=== PATIENT | female | born 1980 | race Caucasian/White ===

== ENCOUNTER 2023-05-05 15:10 | Emergency (ER) | payer BC, SELFPAY ==
[2023-05-05 15:17] VITALS: BP 131/73; PULSE 78; RESP 18; TEMP 36.7; O2SAT 100; BMI 21.9
--- NOTE | 2023-05-05 15:20 | XR_ITS ---
The [address] [address] Patient Name: ARABELLA MARSHALL MRN: [id number] date: 1980 Sex: F Assigned Patient Location: ER Current Patient Location: ED.MAIN Accession/Order Number: [id number] Exam Date: 05/05/2023 15:28 Report Date: 05/05/2023 15:43 At the request of: NAV FERNANDEZ Procedure: XR hand RT min 3V EXAM: XR hand RT min 3V HISTORY: injury COMPARISON: None. TECHNIQUE: Three views of the right hand. FINDINGS: An acute oblique fracture of the distal metaphysis of the second metacarpal is present with minimal displacement. No dislocation. The bones are well mineralized. No degenerative changes identified. No soft tissue abnormality. XR/XR hand RT min 3V IMPRESSION: 1. Acute fracture of the distal metaphysis of the second metacarpal with minimal displacement. Electronically authenticated by: DAGMAR SALGADO Date: 05/05/2023 15:43
--- NOTE | 2023-05-05 15:20 | PC.NURSE ---
pt presents to ED because patient states she was working on a wood splitter and hit her right hand on the machine. top of hand and knuckles are swollen. ice pack applied.
--- NOTE | 2023-05-05 15:46 | ED_ITS ---
Documented by User: Margret Maza 05/05/23 16:09 HPI - General Adult General Chief complaint: Extremity Injury, Upper Stated complaint: UPPER EXTREMITY INJURY R HAND/XRAY Time Seen by Provider: 05/05/23 15:45 Source: patient Mode of arrival: walk-in Limitations: no limitations History of Present Illness HPI narrative: 43-year-old female presents here with a chief complaint of right hand injury. She was trying to start a wood splitter and smacked her hand and somewhat splinter. Bruising and ecchymosis noted to the 2nd 3rd and 4th metatarsal region. No acute deformity. patient is left hand dominant. occurred just prior to arrival. Patient was given ice on arrival of the er today. Related Data Home Medications Medication Instructions Recorded Confirmed No Known Home Medications 05/05/23 05/05/23 Allergies Allergy/AdvReac Type Severity Reaction Status Date / Time No Known Drug Allergies Allergy Verified 05/05/23 15:16 Review of Systems ROS Narrative All Systems are negative except as noted/marked.All systems reviewed and otherwise negative Exam Narrative Exam Narrative: Nurses note and vital signs reviewed and patient is not hypoxic. General: The patient appears well and in no apparent distress. Patient is resting comfortably on cart. Skin: Warm, dry, no pallor noted. There is no rash noted. Head: Normocephalic, atraumatic Respiratory: Patient is in no distress, no accessory muscle use, lungs are clear to auscultation, no wheezing, rales or rhonchi Back: non-tender, no CVA tenderness bilaterally to percussion. Musculoskeletal: right-handed ecchymosis soft tissue swelling to the 2nd 3rd and 4th metatarsal area, neurovascular intact, good capillary refill distally.remainder of extremities are unremarkable. Neurological: A&O x4, normal speech Psychiatric: Cooperative Constitutional Vital Signs, click to edit/add: Last Vital Signs Temp 98.1 F 05/05/23 15:17 Pulse 78 05/05/23 15:17 Resp 18 05/05/23 15:17 BP 131/73 05/05/23 15:17 Pulse Ox 100 05/05/23 15:17 Course Vital Signs Vital signs: Vital Signs Temperature 98.1 F 05/05/23 15:17 Pulse Rate 78 05/05/23 15:17 Respiratory Rate 18 05/05/23 15:17 Blood Pressure 131/73 05/05/23 15:17 Pulse Oximetry 100 05/05/23 15:17 Temperature 98.1 F 05/05/23 15:17 Pulse Rate 78 05/05/23 15:17 Respiratory Rate 18 05/05/23 15:17 Blood Pressure 131/73 05/05/23 15:17 Pulse Oximetry 100 05/05/23 15:17 Medical Decision Making MDM Narrative Medical decision making narrative: patient presented here chief complaint right hand injury that occurred just prior to arrival. X-rays consistent with a metatarsal fracture. Will follow-up with orthopedics. Patient's right hand was placed in a splint. Extremity neurovascularly intact before and after application. Sling and [place] was provided. Patient will follow-up as directed. Differential Diagnosis Differential Diagnosis: hand contusion, hand fracture, sprain Medical Records Medical records reviewed: Yes I reviewed the patient's medical records Imaging Data right hand: Radiologist's impression: ARABELLA MARSHALL MRN: [facility]:[id number] date: 1980 Sex: F Assigned Patient Location: ER Current Patient Location: ED.MAIN Accession/Order Number: [id number] Exam Date: 05/05/2023 15:28 Report Date: 05/05/2023 15:43 At the request of: NAV FERNANDEZ Procedure: XR hand RT min 3V EXAM: XR hand RT min 3V HISTORY: injury COMPARISON: None. TECHNIQUE: Three views of the right hand. FINDINGS: An acute oblique fracture of the distal metaphysis of the second metacarpal is present with minimal displacement. No dislocation. The bones are well mineralized. No degenerative changes identified. No soft tissue abnormality. IMPRESSION: 1. Acute fracture of the distal metaphysis of the second metacarpal with minimal displacement. Discharge Plan Discharge Chief Complaint: Extremity Injury, Upper Clinical Impression: Fracture of hand Patient Disposition: Home, Self-Care Time of Disposition Decision: 15:58 Condition: Good Prescriptions / Home Meds: No Action No Known Home Medications Stand Alone Forms: Portal Instructions Referrals: TREY NGUYEN [Primary Care Provider] - 1 week Kiran Posadas MD [Physician] - 1 week Discharge Date/Time: 05/05/23 16:14 Documented by User: Nav Fernandez 05/06/23 07:11 HPI - General Adult General Chief complaint: Extremity Injury, Upper Stated complaint: UPPER EXTREMITY INJURY R HAND/XRAY Time Seen by Provider: 05/05/23 15:45 History of Present Illness HPI narrative: 43-year-old female presents here with a chief complaint of right hand injury. She was trying to start a wood splitter and smacked her hand. Bruising and ecchymosis noted to the 2nd 3rd and 4th metatarsal region. No acute deformity. patient is left hand dominant. occurred just prior to arrival. Patient was given ice on arrival of the er today. Related Data Home Medications Medication Instructions Recorded Confirmed No Known Home Medications 05/05/23 05/05/23 Allergies Allergy/AdvReac Type Severity Reaction Status Date / Time No Known Drug Allergies Allergy Verified 05/05/23 15:16 Exam Constitutional Vital Signs, click to edit/add: Last Vital Signs Temp 98.1 F 05/05/23 15:17 Pulse 78 05/05/23 15:17 Resp 18 05/05/23 15:17 BP 131/73 05/05/23 15:17 Pulse Ox 100 05/05/23 15:17 Course Vital Signs Vital signs: Vital Signs Temperature 98.1 F 05/05/23 15:17 Pulse Rate 78 05/05/23 15:17 Respiratory Rate 18 05/05/23 15:17 Blood Pressure 131/73 05/05/23 15:17 Pulse Oximetry 100 05/05/23 15:17 Temperature 98.1 F 05/05/23 15:17 Pulse Rate 78 05/05/23 15:17 Respiratory Rate 18 05/05/23 15:17 Blood Pressure 131/73 05/05/23 15:17 Pulse Oximetry 100 05/05/23 15:17 Discharge Plan Discharge Chief Complaint: Extremity Injury, Upper Clinical Impression: Fracture of hand Patient Disposition: Home, Self-Care Time of Disposition Decision: 15:58 Condition: Good Prescriptions / Home Meds: No Action No Known Home Medications Stand Alone Forms: Portal Instructions Referrals: TREY NGUYEN [Primary Care Provider] - 1 week Kiran Posadas MD [Physician] - 1 week Discharge Date/Time: 05/05/23 16:14
== END 2023-05-05 16:14 | disposition home or self-care (01) ==
PROVIDERS: Emergency Provider Emergency Medicine; PCP Nurse Practitioner Family
DX: S62.390A Other fracture of second metacarpal bone, right hand, initial encounter for closed fracture (principal); W22.8XXA Striking against or struck by other objects, initial encounter
CPT/HCPCS: 29125; 73130; 99283

== ENCOUNTER 2023-05-15 09:36 | Outpatient (OUT) | payer BC, SELFPAY ==
--- NOTE | 2023-05-15 09:53 | XR_ITS ---
The [address] [address] Patient Name: ARABELLA MARSHALL MRN: [id number] date: 1980 Sex: F Assigned Patient Location: RAD Current Patient Location: RAD Accession/Order Number: [id number] Exam Date: 05/15/2023 09:48 Report Date: 05/15/2023 12:34 At the request of: ROBERT MATA Procedure: XR hand RT min 3V PROCEDURE: XR hand RT min 3V DATE: 05/15/2023 8:48 AM CDT COMPARISONS: 05/05/2023 CLINICAL INDICATION: Closed Nondisplaced Fracture Of Fourth Metacarpal Bone FINDINGS: There is again evidence of minimally displaced oblique fracture of the distal third of the second metacarpal. There appears to be callus formation developing at the fracture site. Fracture fragments are difficult to identify in frontal and oblique views in part due to overlying splint material.. No new abnormalities identified. XR/XR hand RT min 3V IMPRESSION: Evidence of healing of an essentially nondisplaced fracture of the distal metaphysis of the second metacarpal. Osseous structures are in stable alignment. Electronically authenticated by: COMFORT HAND Date: 05/15/2023 12:34
== END 2023-05-15 09:37 | disposition home or self-care (01) ==
LOC: RAD 09:36
PROVIDERS: PCP Nurse Practitioner Family; Visit Provider Orthopaedic Surgery
DX: S62.364A Nondisplaced fracture of neck of fourth metacarpal bone, right hand, initial encounter for closed fracture (principal)
CPT/HCPCS: 73130

== ENCOUNTER 2023-05-22 09:56 | Outpatient (OUT) | payer BC, SELFPAY ==
--- NOTE | 2023-05-22 10:00 | XR_ITS ---
The [address] [address] Patient Name: ARABELLA MARSHALL MRN: [id number] date: 1980 Sex: F Assigned Patient Location: RAD Current Patient Location: RAD Accession/Order Number: [id number] Exam Date: 05/22/2023 10:08 Report Date: 05/22/2023 10:28 At the request of: ROBERT MATA Procedure: XR hand RT min 3V PROCEDURE: XR hand RT min 3V COMPARISON: 05/05, 02/12. HISTORY: Closed Fracture Of Metacarpal Bone Right Hand S62.364A FINDINGS: BONES:Stable fracture second metacarpal neck/diaphysis with no change in angulation or distraction. No new fracture or dislocation. SOFT TISSUES:Negative. No visible soft tissue swelling. EFFUSION:None visible. OTHER: Negative. XR/XR hand RT min 3V IMPRESSION: Stable second metacarpal fracture Electronically authenticated by: ELPIDIO MACKEY Date: 05/22/2023 10:28
== END 2023-05-22 09:57 | disposition home or self-care (01) ==
LOC: RAD 09:56
PROVIDERS: PCP Nurse Practitioner Family; Visit Provider Orthopaedic Surgery
DX: S62.364A Nondisplaced fracture of neck of fourth metacarpal bone, right hand, initial encounter for closed fracture (principal); S62.300D Unspecified fracture of second metacarpal bone, right hand, subsequent encounter for fracture with routine healing
CPT/HCPCS: 73130

== ENCOUNTER 2023-05-29 10:01 | Outpatient (OUT) | payer BC, SELFPAY ==
--- NOTE | 2023-05-29 10:06 | XR_ITS ---
The [address] [address] Patient Name: ARABELLA MARSHALL MRN: [id number] date: 1980 Sex: F Assigned Patient Location: [facility] Current Patient Location: Accession/Order Number: [id number] Exam Date: 05/29/2023 10:10 Report Date: 05/30/2023 01:35 At the request of: ROBERT MATA Procedure: XR hand RT min 3V XR hand RT min 3V: HISTORY: Closed Nondisplaced Fracture Neck Of Fourth Metacarpal Right Closed Nondisplaced Fracture Neck Of Fourth Metacarpal Right COMPARISON: 05/22/2023. TECHNIQUE: 3 right hand views are submitted. FINDINGS: BONES/JOINT SPACES: There is stable alignment of healing second distal metacarpal fracture. No acute fractures are present elsewhere. The joint spaces are well-maintained. SOFT TISSUES: The soft tissues are unremarkable. XR/XR hand RT min 3V IMPRESSION: Stable alignment of healing right second distal metacarpal fracture. Electronically authenticated by: NICHOLE MATIAS Date: 05/30/2023 01:35
== END 2023-05-29 10:02 | disposition home or self-care (01) ==
LOC: RAD 10:02
PROVIDERS: PCP Nurse Practitioner Family; Visit Provider Orthopaedic Surgery
DX: S62.364A Nondisplaced fracture of neck of fourth metacarpal bone, right hand, initial encounter for closed fracture (principal); S62.300D Unspecified fracture of second metacarpal bone, right hand, subsequent encounter for fracture with routine healing
CPT/HCPCS: 73130

== ENCOUNTER 2023-06-26 09:17 | Outpatient (OUT) | payer BC, SELFPAY ==
--- NOTE | 2023-06-26 09:27 | XR_ITS ---
The [address] [address] Patient Name: ARABELLA MARSHALL MRN: [id number] date: 1980 Sex: F Assigned Patient Location: [facility] Current Patient Location: Accession/Order Number: [id number] Exam Date: 06/26/2023 09:32 Report Date: 06/27/2023 01:45 At the request of: ROBERT MATA Procedure: XR hand RT min 3V XR hand RT min 3V: HISTORY: Nondisplaced Fracture Of Neck Of Fourth Metacarpal Bone Nondisplaced Fracture Of Neck Of Fourth Metacarpal Bone COMPARISON: 05/29/2023. TECHNIQUE: 3 right hand views are submitted. FINDINGS: BONES/JOINT SPACES: There is stable alignment of a healing fracture of the second distal metacarpal bone. Osseous structures elsewhere are intact. SOFT TISSUES: The soft tissues are unremarkable. XR/XR hand RT min 3V IMPRESSION: Stable alignment of healing distal second metacarpal bone. Electronically authenticated by: NICHOLE MATIAS Date: 06/27/2023 01:45
== END 2023-06-26 09:18 | disposition home or self-care (01) ==
LOC: RAD 09:17
PROVIDERS: PCP Nurse Practitioner Family; Visit Provider Orthopaedic Surgery
DX: S62.364D Nondisplaced fracture of neck of fourth metacarpal bone, right hand, subsequent encounter for fracture with routine healing (principal)
CPT/HCPCS: 73130

== ENCOUNTER 2023-07-24 08:50 | Outpatient (OUT) | payer BC, SELFPAY ==
--- NOTE | 2023-07-24 08:53 | XR_ITS ---
The [address] [address] Patient Name: ARABELLA MARSHALL MRN: [id number] date: 1980 Sex: F Assigned Patient Location: [facility] Current Patient Location: Accession/Order Number: [id number] Exam Date: 07/24/2023 09:00 Report Date: 07/25/2023 07:31 At the request of: ROBERT MATA Procedure: XR hand RT min 3V EXAM: XR hand RT min 3V HISTORY: Nondisplaced Fracture Of Neck Of Fourth Metacarpal Bone COMPARISON: 06/26/2023 TECHNIQUE: Routine views of the XR hand RT min 3V FINDINGS/ XR/XR hand RT min 3V IMPRESSION: 1. No acute fractures. Unchanged lucency of the nondisplaced second metacarpal neck fracture. 2. Unremarkable soft tissues. 3. Normal joint spacing. Electronically authenticated by: SADI YEBOAH Date: 07/25/2023 07:31
== END 2023-07-24 08:51 | disposition home or self-care (01) ==
LOC: RAD 08:50
PROVIDERS: PCP Nurse Practitioner Family; Visit Provider Orthopaedic Surgery
DX: S62.364D Nondisplaced fracture of neck of fourth metacarpal bone, right hand, subsequent encounter for fracture with routine healing (principal)
CPT/HCPCS: 73130

== ENCOUNTER 2023-09-11 08:59 | Outpatient (OUT) | payer BC, SELFPAY ==
--- NOTE | 2023-09-11 | XR_ITS ---
The [address] [address] Patient Name: ARABELLA MARSHALL MRN: [id number] date: 1980 Sex: F Assigned Patient Location: [facility] Current Patient Location: [facility] Accession/Order Number: [id number] Exam Date: 09/11/2023 09:52 Report Date: 09/11/2023 11:30 At the request of: ROBERT MATA Procedure: XR hand RT min 3V EXAM: XR hand RT min 3V HISTORY: RIGHT HAND PAIN COMPARISON: Right hand study dated 07/24/2023. TECHNIQUE: 3 views of the right hand were obtained. FINDINGS: Faint transverse lucency at the level of the distal second metacarpal on the lateral view mildly decreased in conspicuity compared to the prior exam compatible with continued healing of the previously noted fracture. Contour irregularity of the second metacarpal head may be related to the fracture, this appears similar to the prior exam. Mild degenerative changes about the second metatarsophalangeal joint with what may be mild interval degenerative subchondral cystic change at the base of the proximal phalanx of the index finger. Correlate clinically. Mild degenerative changes at the DIP joint of the index finger. Soft tissues are grossly within normal limits. XR/XR hand RT min 3V IMPRESSION: Right hand study demonstrates evidence of continued healing of previously noted distal second metacarpal fracture. Mild contour irregularity of the second metacarpal head assumed related to previously noted fracture. Possible mild interval degenerative cystic change at the base of the proximal phalanx of the index finger. Correlate clinically. Follow-up as needed. Electronically authenticated by: ISIDORO LOPEZ Date: 09/11/2023 11:30
--- OUTSIDE RECORDS SUMMARY | 2023-09-11 09:04 | XMS_ITS | CCD ---
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 Name Role Phone MISC, DR LANDIN Attending Unavailable MISMatilda, DR LANDIN Admitting Unavailable CARLY NGUYEN Admitting Unavailable CARLY NGUYEN Consulting Unavailable CARLY NGUYEN Attending Unavailable DO Migue Woo Primary Care Provider [phone] MD Juan David Jose Attending Provider [phone] MD Je Maradiaga Attending Provider Ever Apple Unavailable Juan David Jose Unavailable Carly Nguyen Unavailable BunDO Migue tyler Primary Care Provider BuntingDO Camarena Attending Provider Bunting, Migue Primary Care Unavailable Bunting, Migue Admitting Unavailable Bunting, Migue Attending Unavailable Bunting, Migue Primary Care Unavailable Juan David Jose Attending Unavailable Juan David Jose Admitting Unavailable Bunting, Migue Admitting Unavailable Bunting, Migue Attending Unavailable Bunting, Migue Primary Care Unavailable Medications Current Medications Medication Drug Class(es) Dates Sig (Normalized) Sig (Original) Acetaminophen (8 sources) Tylenol Active aspirin 325 mg oral tablet (10 sources) Platelet Aggregation Inhibitor, Nonsteroidal Anti-inflammatory Drug Start: 08-30-2021 take 650 mg by mouth once daily Aspirin Active 650 MG PO Daily August 30, 2021 12:57pm Aspirin 325 mg A ctive cephalexin 500 mg oral capsule (2 sources) Cephalosporin Antibacterial Start: 09-14-2021 take 500 mg by mouth three times daily Cephalexin Active 500 MG PO Three times daily September 14, 2021 9:10am lidocaine 0.04 mg/mg medicated patch (8 sources) Antiarrhythmic, Amide Local Anesthetic Start: 03-20-2021 Lidocaine 4 % as directed Externally Mar, Active oxyCODONE hydrochloride 5 mg oral tablet (4 sources) Opioid Agonist Start: 09-14-2021 take 5-10 mg by mouth every six hours Oxycodone Active 5 - 10 MG PO Q6H 40 8 September 14, 2021 oxyCODONE HCl No t-Taking Prednisone (4 sources) Start: 09-14-2021 Prednisone Act lily 1 dose pk PO per package directions September 14, 2021 9:11am take 4 tabs for 3 days then take 3 tabs for 3 days then take 2 tabs for 3 days then take 1 tab for 3 days Start: 09-14-2021 Prednisone Act lily 1 dose pk PO per package directions September 14, 2021 1:00am take 4 tabs for 3 days then take 3 tabs for 3 days then take 2 tabs for 3 days then take 1 tab for 3 days Start: 01-19-2021 take 1 tablet by kellie th every twenty-four hours predniSONE 20 MG 1 tablet Orally Once a day Jan, Not-Taking Completed/Discontinued Medications Medication Drug Class(es) Dates Sig (Normalized) Sig (Original) cyclobenzaprine hydrochloride 10 mg oral tablet (10 sources) Muscle Relaxant Start: 03-20-2021 End: 09-14-2021 take 1 tablet by mouth three times daily Cyclobenzaprine (Flexeril) 10 mg Tablet Discontinued 10 MG PO Three times daily August 30, 2021 1:00am September 14, 2021 9:10am dexamethasone 2 mg oral tablet (2 sources) Corticosteroid take 1 tablet by mouth every twelve hours Dexamethasone 2 MG 1 tablet Orally every 12 hrs Not-Taking zolpidem tartrate 10 mg oral tablet (2 sources) gamma-Aminobutyric Acid-ergic Agonist Start: 01-19-2021 take 1 tablet by mouth every twenty-four hours Ambien 10 MG 1 tablet at bedtime as needed Orally Once a day Jan, Not-Taking Problems Active Problems Problem Classification Problem Date Documented Da te Episodic/Chronic Disorders of lipid metabolism (1 source) Mixed hyperlipidemia; Translations: [Mixed hyperlipidemia] Onset: 05-11-2022 Chronic Other connective tissue disease (2 sources) Tendinitis of left forearm; Translations: [Other enthesopathies, not elsewhere classified] Episodic Other nervous system disorders (8 sources) Chronic pain; Translations: [Other chronic pain] Chronic Other nervous system disorders (1 source) Other chronic pain; Translations: [Chronic pain G89.29] Onset: 05-21-2021 Resolved: 05-21-2021 Chronic Other nervous system disorders (1 source) Carpal tunnel syndrome of right wrist; Translations: [Carpal tunnel syndrome, right upper limb] Chronic Other nervous system disorders (1 source) Carpal tunnel syndrome, right upper limb Chronic Other screening for suspected conditions (not mental disorders or infectious disease) (4 sources) Encounter for screening, unspecified; Translations: [ENCOUNTER FOR SCREENING UNSPECIFIED] Onset: 07-20-2021 Episodic Spondylosis; intervertebral disc disorders; other back problems (20 sources) Cervical spondylosis; Translations: [Spondylosis without myelopathy or radiculopathy, cervical region] Onset: 05-21-2021 Resolved: 05-21-2021 Chronic Spondylosis; intervertebral disc disorders; other back problems (7 sources) Cervical disc disorder with radiculopathy; Translations: [Cervical disc disorder at C6-C7 level with radiculopathy] Onset: 08-05-2021 Resolved: 12-07-2021 09-14-2021 Episodic Unclassified (2 sources) CONTACT W/AND (SUSP) EXPOS COVID-19; Translations: [CONTACT W/AND (SUSP) EXPOS COVID-19] Onset: 07-24-2021 Unclassified (1 source) Encounter for screening mammogram for malignant neoplasm of breast; Translations: [Encounter for screening mammogram for malignant neoplasm of breast] Onset: 03-01-2023 Viral infection (1 source) COVID-19; Translations: [COVID-19] Onset: 07-24-2021 Past or Other Problems Problem Classification Problem Date Documented Da te Episodic/Chronic Immunizations and screening for infectious disease (1 source) Contact with and (suspected) exposure to other viral communicable diseases Onset: 07-20-2021 Resolved: 07-20-2021 Episodic Other connective tissue disease (1 source) Other enthesopathies, not elsewhere classified Onset: 12-07-2021 Resolved: 12-07-2021 Episodic Unclassified (1 source) CONTACT W/AND (SUSP) EXPOS COVID-19; Translations: [CONTACT W/AND (SUSP) EXPOS COVID-19] Onset: 07-20-2021 Results Test Name Value Interpretation Reference Range Facility MM screening mammo BI w/CADo n 03-01-2023 MM screening mammo BI w/CAD [facility] [address] [place] [id number] Mammography Report Signed Patient: Arabella Thornton MR#: [id number] : 1980 Acct:[id number] Age/Sex: 42 / F ADM Date: 03/01/23 Loc: [place] Room: Type: [facility] Attending Dr: Migue Woo DO Copies to: Migue Woo DO Ordering Provider: Migue Woo DO Date of Service: 03/01/23 MM/MM screening mammo BI w/CAD: SCREENING CLINICAL DATA: Screening for malignancy. SCREENING MAMMOGRAM - FULL FIELD DIGITAL WITH TOMOSYNTHESIS AND CAD COMPARISON:Baseline study Tomosynthesis craniocaudal and mediolateral oblique views of both breasts were obtained using low- dose digital technique. This examination was reviewed with the aid of CAD. The breast parenchyma is heterogeneously dense. There are no dominant masses, typically malignant calcifications or architectural distortion. MM/MM screening mammo BI w/CAD IMPRESSION: NO MAMMOGRAPHIC EVIDENCE OF MALIGNANCY. ROUTINE FOLLOW-UP IS RECOMMENDED IN ONE YEAR. RESULT CODE: 1 Negative DENSITY CODE: 3 (approximately 51-75% glandular) FOLLOW UP: 1YR The false-negative rate of mammography is approximately 10-percent. Management of a palpable abnormality must be based on clinical grounds. Patient was entered into a reminder system with a target due date for the next mammogram. Impression dictated by: Raghu Graves Jr., D.O.03/01/2023 3:00 PM Dictation Location: [facility] Transcribed By: [facility] 03/01/23 1500 Dictated By: Raghu Graves Jr, DO 03/01/23 1500 Signed By: 03/01/23 1500 Normal [facility] XR cerv spine AP/LAT/FLX/EXT on 07-06-2022 XR cerv spine AP/LAT/FLX/EXT [address] [address] XRay Report Signed Patient: Arabella Thornton MR#: [id number] : 1980 Acct:[id number] Age/Sex: 42 / F ADM Date: 07/06/22 Loc: XD Room: Type: [facility] Attending Dr: Juan David Jose MD Copies to: Juan David Jose MD Ordering Provider: Juan David Jose MD Date of Service: 07/06/22 XR/XR cerv spine AP/LAT/FLX/EXT: M47.812 CERVICAL SPINE WITH FLEXION AND EXTENSION VIEWS -4 views: CLINICAL HISTORY: Follow-up after artificial disc placement. COMPARISON: 12/06/2021 AP and lateral views with neutral, flexion and extension were obtained. There is redemonstration of an artificial disc at the C6-7 level. This is unchanged from the prior. There are no developing fractures. There is no displacement. With flexion, there is still slight anterolisthesis of C2 on C3, C3 on C4 and C4 on C5. With extension, there is minimal retrolisthesis of C2 on C3 and C3 on C4. There is mild disc space narrowing at C5-6. There are tiny endplate spurs. No prevertebral soft tissue swelling is noted. XR/XR cerv spine AP/LAT/FLX/EXT IMPRESSION: NO CHANGE FROM THE COMPARISON EXAM. Impression dictated by: Adelina Wheeler M.D.07/06/2022 3:49 PM Dictation Location: [place] [address] Transcribed By: [facility] 07/06/22 1549 Dictated By: Adelina Wheeler MD 07/06/22 1547 Signed By: 07/06/22 1549 [facility] Albumin [Mass/volume] in Ser um or PlasmaOrdered By: Migue Woo on 05-11-2022 Albumin [Mass/Vol] 3.9 g/dL 3.2-5.5 [facility] Cholesterol [Mass/volume] in Serum or PlasmaOrdered By: Migue Woo on 05-11-2022 Cholesterol [Mass/Vol] 164 mg/dL 140-200 [facility] Comment on above: Chol less than 200 m g/dl low riskChol 201-239 mg/dl borderline riskChol 240 mg/dl and greater high risk Cholesterol in LDL Calc [Mas s/Vol]Ordered By: Migue Woo on 05-11-2022 Cholesterol in LDL [Mass/Vol] 92 mg/dL 0-100 [facility] Comment on above: LDL ATP III CLASSIFI CATIONLDL less than 100 mg/dL OptimalLDL 100-129 mg/dL Near or above optimalLDL 130-159 mg/dL Borderline highLDL 160-189 mg/dL HighLDL greater than 189 mg/dL Very high Cholesterol in VLDL Calc [Ma ss/Vol]Ordered By: Migue Woo on 05-11-2022 Cholesterol in VLDL [Mass/Vol] 9 mg/dL [facility] Comprehensive Metabolic Pane dora 05-11-2022 Albumin [Mass/Vol] 3.9 g/dL Normal 3.2-5.5 [facility] Comment on above: Performed By: #### C MP, LIPID #### [facility] [address] [place] [address] [place] Albumin/Globulin [Mass ratio] 1.6 {ratio} Normal [facility] Comment on above: Performed By: #### C MP, LIPID #### [facility] [address] [place] [id number] [place] ALP [Catalytic activity/Vol] 68 U/L Normal 32-92 [facility] Comment on above: Performed By: #### C MP, LIPID #### [facility] [address] [place] [address] [place] ALT [Catalytic activity/Vol] 12 U/L Normal 10-60 [facility] Comment on above: Performed By: #### C MP, LIPID #### [facility] [address] [place] [id number] [place] Anion gap [Moles/Vol] 11.5 mmol/L Normal 6.0-15.0 [facility] Comment on above: Performed By: #### C MP, LIPID #### [facility] [address] [place] [id number] [place] AST [Catalytic activity/Vol] 14 U/L Normal 10-42 [facility] Comment on above: Performed By: #### C MP, LIPID #### [facility] [address] [place] [address] [place] Bilirubin [Mass/Vol] 0.5 mg/dL Normal 0.3-1.2 [facility] Comment on above: Performed By: #### C MP, LIPID #### [facility] [address] Calcium [Mass/Vol] 8.6 mg/dL Normal 8.2-10.2 [facility] Comment on above: Performed By: #### C MP, LIPID #### [facility] [address] Chloride [Moles/Vol] 102 mmol/L Normal 95-114 [facility] Comment on above: Performed By: #### C MP, LIPID #### [facility] [address] CO2 [Moles/Vol] 25.3 mmol/L Normal 22.0-30.0 [facility] Comment on above: Performed By: #### C MP, LIPID #### [facility] [address] [place] [address] [place] Creatinine [Mass/Vol] 0.65 mg/dL Normal 0.44-1.03 [facility] Comment on above: Performed By: #### C MP, LIPID #### [facility] [address] [place] [address] [place] Estimated GFR ( Jessica > 60 [facility] Comment on above: Result Comment: GFR estimated reference range: According to KDOQI guidelines, <60 ml/min/1.73m2 is sufficient to diagnose a patient with chronic kidney disease. Performed By: #### C MP, LIPID #### [facility] [address] [place] [address] [place] Estimated GFR (Non- Am > 60 [facility] Comment on above: Performed By: #### C MP, LIPID #### [facility] [address] [place] [address] [place] Globulin (S) [Mass/Vol] 2.5 g/dL [facility] Comment on above: Performed By: #### C MP, LIPID #### [facility] [address] Glucose [Mass/Vol] 95 mg/dL Normal 70-100 [facility] Comment on above: Result Comment: [facility] Glucose Reference Range is dependent on time and content of last meal. Glucose of more than 200 mg/dL in a nonstressed, ambulatory subject supports the diagnosis of Diabetes Mellitus. ADA recommended reference range Performed By: #### C MP, LIPID #### [facility] [address] Potassium [Moles/Vol] 3.8 mmol/L Normal 3.5-5.1 [facility] Comment on above: Performed By: #### C MP, LIPID #### [facility] [address] Protein [Mass/Vol] 6.4 g/dL Normal 6.1-7.9 [facility] Comment on above: Performed By: #### C MP, LIPID #### [facility] [address] Sodium [Moles/Vol] 135 mmol/L Low 136-146 [facility] Comment on above: Performed By: #### C MP, LIPID #### [facility] [address] [place] [address] [place] Urea nitrogen [Mass/Vol] 5 mg/dL Low 9-23 [facility] Comment on above: Performed By: #### C MP, LIPID #### [facility] [address] [place] [address] [place] Creatinine and Glomerular fi ltration rate.predicted panel (S/P/Bld)Ordered By: Migue Woo on 05-11-2022 Creatinine [Mass/Vol] 0.65 mg/dL 0.44-1.03 [facility] Estimated glomerular filtrat ion rate (GFR) non- AmericanOrdered By: Migue Woo on 05-11-2022 GFR/1.73 sq M.predicted among non-blacks MDRD (S/P/Bld) [Vol rate/Area] > 60 mL/Min [facility] Globulin Calc (S) [Mass/Vol] Ordered By: Migue Woo on 05-11-2022 Globulin (S) [Mass/Vol] 2.5 g/dL [facility] Lipid Panelon 05-11-2022 Cholesterol [Mass/Vol] 164 mg/dL Normal 140-200 [facility] Comment on above: Result Comment: Chol less than 200 mg/dl low risk Chol 201-239 mg/dl borderline risk Chol 240 mg/dl and greater high risk Performed By: #### C MP, LIPID #### [facility] [address] Cholesterol in HDL [Mass/Vol] 62 mg/dL Normal 35-85 [facility] Comment on above: Result Comment: HDL CHOL ATP-III CLASSIFICATION Cardiovascular Risk HDL > or equal to 60 mg/dL LOW HDL < 40 mg/dL HIGH Performed By: #### C MP, LIPID #### [facility] [address] Cholesterol.total/Chol esterol in HDL [Mass ratio] 2.6 {ratio} Normal <5.0 [facility] Comment on above: Result Comment: PERF ORMED BY: [place] [address] PATHOLOGIST ENVIRONMENTAL HEALTH SPECIALIST COLLEEN HEARN M.D. Performed By: #### C MP, LIPID #### [facility] [address] LDL Cholesterol,Calculated 92 mg/dL Normal 0-100 [facility] Comment on above: Result Comment: LDL ATP III CLASSIFICATION LDL less than 100 mg/dL Optimal LDL 100-129 mg/dL Near or above optimal LDL 130-159 mg/dL Borderline high LDL 160-189 mg/dL High LDL greater than 189 mg/dL Very high Performed By: #### C MP, LIPID #### [facility] [address] [place] [id number] [place] Triglyceride w/Reflex 49 mg/dL Normal 35-149 [facility] Comment on above: Result Comment: TRIG ATP III CLASSIFICATION TRIG less than 150 mg/dL Normal TRIG 150-199 mg/dL Borderline high TRIG 200-500 mg/dL High TRIG greater than 500 mg/dL Very high Standard traceable to the Center for Disease Conrtrol and Prevention (CDC) test method. Performed By: #### C MP, LIPID #### [facility] [address] [place] [address] [place] VLDL CHOLESTEROL 9 mg/dL Normal [facility] Comment on above: Performed By: #### C MP, LIPID #### [facility] [address] No Panel InformationOrdered By: Migue Woo on 05-11-2022 Estimated GFR () > 60 mL/Min [facility] Comment on above: GFR estimated refere nce range: According to KDOQI guidelines, <60 ml/min/1.73m2 is sufficient to diagnose a patient with chronic kidney disease. Pharmacy Creatinine Clearance (Chem N/A [facility] Protein [Mass/volume] in Ser um or PlasmaOrdered By: Migue Woo on 05-11-2022 Protein [Mass/Vol] 6.4 g/dL 6.1-7.9 [facility] Serum or plasma alanine bolivar otransferase measurement without P-5'-P (enzymatic activiOrdered By: Migue Woo on 05-11-2022 ALT No additional P-5'-P [Catalytic activity/Vol] 12 U/L [facility] Serum or plasma albumin/glob ulin mass ratioOrdered By: Migue Woo on 05-11-2022 Albumin/Globulin [Mass ratio] 1.6 {ratio} [facility] Serum or plasma alkaline nataliia sphatase measurement (enzymatic activity/volume)Ordered By: Migue Woo on 05-11-2022 ALP [Catalytic activity/Vol] 68 U/L 32-92 [facility] Serum or plasma anion gap de terminationOrdered By: Migue Bunting on 05-11-2022 Anion gap [Moles/Vol] 11.5 mmol/L 6.0-15.0 [facility] Serum or plasma aspartate am inotransferase measurement (enzymatic activity/volume)Ordered By: Migue Bunting on 05-11-2022 AST [Catalytic activity/Vol] 14 U/L 1042 [facility] Serum or plasma calcium attila urement (mass/volume)Ordered By: Migue Woo on 05-11-2022 Calcium [Mass/Vol] 8.6 mg/dL 8.2-10.2 [facility] Serum or plasma chloride beba surement (moles/volume)Ordered By: Migue Woo on 05-11-2022 Chloride [Moles/Vol] 102 mmol/L 95-114 [facility] Serum or plasma glucose attila urement (mass/volume)Ordered By: Migue Woo on 05-11-2022 Glucose [Mass/Vol] 95 mg/dL 70-100 [facility] Comment on above: ADA recommended refe rence rangeRandom Glucose Reference Range is dependent on time and content of last meal. Glucose of more than 200 mg/dL in a nonstressed, ambulatory subject supports the diagnosis of Diabetes Mellitus. Serum or plasma high density lipoprotein (HDL) cholesterol measurementOrdered By: Migue Woo on 05-11-2022 Cholesterol in HDL [Mass/Vol] 62 mg/dL 35-85 [facility] Comment on above: HDL CHOL ATP-III CLA SSIFICATION Cardiovascular RiskHDL > or equal to 60 mg/dL LOWHDL < 40 mg/dL HIGH Serum or plasma potassium me asurement (moles/volume)Ordered By: Migue Woo on 05-11-2022 Potassium [Moles/Vol] 3.8 mmol/L 3.5-5.1 [facility] Serum or plasma sodium measu rement (moles/volume)Ordered By: Migue Woo on 05-11-2022 Sodium [Moles/Vol] 135 mmol/L 136-146 [facility] Serum or plasma total biliru bin measurement (mass/volume)Ordered By: Migue Woo on 05-11-2022 Bilirubin [Mass/Vol] 0.5 mg/dL 0.3-1.2 [facility] Serum or plasma total carbon dioxide measurement (moles/volume)Ordered By: Migue Woo on 05-11-2022 CO2 [Moles/Vol] 25.3 mmol/L 22.0-30.0 [facility] Serum or plasma total choles terol/high density lipoprotein (HDL) cholesterol mass ratOrdered By: Migue Woo on 05-11-2022 Cholesterol.total/Chol esterol in HDL [Mass ratio] 2.6 {ratio} <5.0 [facility] Serum or plasma urea nitroge n measurement (mass/volume)Ordered By: Migue Woo on 05-11-2022 Urea nitrogen [Mass/Vol] 5 mg/dL 9-23 [facility] Triglyceride [Mass/volume] i n Serum or PlasmaOrdered By: Migue Woo on 05-11-2022 Triglyceride [Mass/Vol] 49 mg/dL 35-149 [facility] Comment on above: TRIG ATP III CLASSIF ICATIONTRIG less than 150 mg/dL NormalTRIG 150-199 mg/dL Borderline highTRIG 200-500 mg/dL High TRIG greater than 500 mg/dL Very highStandard traceable to the Center for Disease Conrtrol and Prevention (CDC) test method. HCG ( test) IA.rapi d Ql (U)Ordered By: Allan Wills on 09-13-2021 HCG ( test) Ql (U) Negative [facility] COVID Quick Testingon 2020 Result Negative [employer] Other Covid-19 PCR ([facility])on 07-07 SARS-CoV-2 (COVID-19) RNA JUN+probe Ql (Unsp spec) Detected Critically abnormal NOT DETECTED [facility] Comment on above: Result Comment: This test is not yet approved or cleared by the [place] FDA. When there are no FDA-approved or cleared tests available, and other criteria are met, FDA can make tests available under an emergency access mechanism called an Emergency Use Authorization (EUA). The EUA for this test is supported by the Construction Administrative Assistant of Health and Human Service's (HHS's) declaration that circumstances exist to justify the emergency use of in vitro diagnostics for the detection and/or diagnosis of the virus that causes COVID-19. This EUA will remain in effect (meaning this test can be used) for the duration of the COVID-19 declaration justifying emergency of IVDs, unless it is terminated or revoked by FDA (after which the test may no longer be used). Performed By: #### C VDTB #### [facility] [address] [place] [address] Dr. Alejandra Sherman Discharge [id number] Discharge Profile2 Discharge Orders: Anticipated Discharge Date: Anticipated Discharge [id number] Anticipated Discharge Time16:54 Hospital Providers: Provider RoleProvider Name AttendingLuis Laurent Christopher DNAR: DNAR Status: none Activity: activity as tolerated. Diet: Dietregular Provider FINAL REVIEW of Orders: Final Review: Final Review of Medication Reconciliation and Orders Completedby Physician Reviewing ProviderLuis Laurent MD at 20-Mar-2021 16:56:00 Appointments: Follow-Up Appointment 01: Physician/Dept/ServiceDr . Migue Woo PCP Phone [phone] CommentsConcierge service to make appointment Order received after discharge Reached out to patient lvm & sent letter Follow-Up Appointment 02: Physician/Dept/Service Pain management Phone [phone] CommentsConcierge service to make appointment Order received after discharge Reached out to patient lvm & sent letter Electronic Signatures: Alice Horta (PT SVS REP) (Signed 22-Mar-2021 11:54) Authored: Appointments Luis Laurent) (Signed 20-Mar-2021 16:56) Authored: Discharge Orders, Provider FINAL REVIEW of Orders, Appointments, Gold Form - Attic Blower Summary Last Updated: 22-Mar-2021 11:54 by Alice Horta (PT SVS REP) [facility] Order Reconciliationon 03-20 Order Reconciliation Page 1 Discharge Reconciliation Document Reconciliation Type: Discharge requested on behalf of Luis Laurent (Physician) done by Luis Laurent) Discharge - Reconciliation: 20-Mar-2021 17:04 by: Luis Laurent) Current OrdersDateHOME MEDICATIONS AT DISCHARGE DateReconciliation Comment/ Additional Information Acetaminophen Tablet (TYLENOL)DOSE = 975 mg Oral Every 8 Hours, PRN Pain - Mild (1-3) 19-Mar-2021 15:43 Acetaminophen is not required Cyclobenzaprine Tablet (FLEXERIL)DOSE = 10 mg Oral 3 Times a Day 13-Aug-2021 15:43 cyclobenzaprine 10 mg oral tablet 1 tab(s) orally 3 times a day, As Needed for muslce pain 20-Mar-2021 16:57 Prescription is created for cyclobenzaprine 10 mg oral tablet Dexamethasone Injectable (DECADRON)DOSE = 4 mg IntraVenous Push Every 6 Hours 20-Mar-2021 07:35 Dexamethasone Injectable is not required HYDROmorphone Injectable (DILAUDID)DOSE = 0.2 mg IntraVenous Push Every 4 Hours, PRN breakthorugh pain 20-Mar-2021 07:34 HYDROmorphone Injectable is not required Ketorolac Injectable (TORADOL)DOSE = 30 mg IntraVenous Push Every 6 HoursStop After 5 Days 20-Mar-2021 07:34 Ketorolac Injectable is not required Lidocaine 5% TransDermal Film (LIDODERM)DOSE = 1 patch TransDermal Every 24 Hours, Apply to Lower Back 19-Mar-2021 03:25 Lidocaine 5% TransDermal is not required oxyCODONE Immediate Release Tablet (OXYIR, ROXICODONE)DOSE = 5 mg Oral Every 4 Hours, PRN Pain - Severe (7-10) 20-Mar-2021 07:34 oxyCODONE Immediate Release is not required Home Medications Added During Discharge Reconciliation dexamethasone 2 mg oral tablet 3 tab(s) orally 2 times a day for 2 days, then 2 tabs for 2 days, then 1 tab for 2 days, then stop. ibuprofen 800 mg oral tablet 1 tab(s) orally every 8 hours, As Needed for mild to moderate pain lidocaine 5% topical film Apply topically to affected area once a day to back for pain oxyCODONE 5 mg oral tablet 1 tab(s) orally every 4 hours, As needed, severe pain., ICD 10 code M54.9, Back Pain All Active Home Medications at time of Discharge Reconciliation: 20-Mar-2021 17:04 cyclobenzaprine 10 mg oral tablet 1 tab(s) orally 3 times a day, As Needed for muslce pain dexamethasone 2 mg oral tablet 3 tab(s) orally 2 times a day for 2 days, then 2 tabs for 2 days, then 1 tab for 2 days, then stop. ibuprofen 800 mg oral tablet 1 tab(s) orally every 8 hours, As Needed for mild to moderate pain lidocaine 5% topical film Apply topically to affected area once a day to back for pain oxyCODONE 5 mg oral tablet 1 tab(s) orally every 4 hours, As needed, severe pain., ICD 10 code M54.9, Back Pain Normal [facility] Admission Risk Screen - Adul ton 03-19-2021 Admission Risk Screen - Adult Allergies: Allergies: No Known Allergies: Patient Verification: New W ID Band Applied in my Departmentyes Patient Identity Verified Bypatient ID Band FULL Name, include Middle, spelling matches patient's ID used for verificationyes ID Band Matches Patient ID used for Verficationyes ID Band MRN Matches EMR MRNyes Visitor Restriction: Coronavirus Visitor Restriction: Reasonable restrictions to in-person visitors will be observed due to current coronavirus pandemic. Travel History: COVID-19 Screening Completedno exposure or symptoms Travel or Exposure Past 30 DaysNO travel to International locations in the past 30 days Ebola AlertFor Ebola-like Symptoms: Isolate Patient and Notify Provider/Reed Worker For Contact: Notify Provider/Reed Worker Advance Directive: Advance Directive/DNRno (1) Advance Directive Information Givenpatient/family declined Howard Fall Screen: History of falling (immediate or previous)no (0) Secondary Diagnosisno (0) Intravenous Therapy/ Heparin/Saline Lockno (0) Gait/Transferringweak (10) Ambulatory Aidsnone/bedrest/nurse assist (0) Mental Statusoriented to own ability (0) Score: Low risk (<25). Moderate risk (25-44). High risk (>44).10 Howard InterventionsHIGH INTERVENTIONS *Low and Moderate Interventions Plus: * supervised toileting at all times Family Violence Screen: Are you or have you been threatened or abused physically, emotionally, or sexually by anyoneno Do you feel UNSAFE going back to the place where you are livingno Clinical assessment: Are there any apparent signs of injuries/behaviors that could be related to abuse/neglectno Social Service Consult for abuse/neglect needed this visitno Functional Screen: Functional Screen: In the recent/past 2-4 weeks, patient or family have noticedno issues that require a speech/language consult at this time AM-PAC- Basic Mobility/Daily Activity: Patient baseline bedboundno Learning Assessment (Patient): Patient is Able to be Assessed for Learningyes Factors Influencing Readiness to Learnacuteness of illness Factors that Impact Ability to Learnnone Devices/Methods Used to Communicatenone Learning Preferencesverbal instruction; individual instruction Cultural Considerationsnone Developmental Considerationsnone Church Considerationsnone Learning Assessment (Other Learner): Other learner availableno Depression Screen: During the past month, have you often been bothered by feeling down, depressed or hopelessno During the past month, have you often had little interest or pleasure in doing thingsno Have you had any thoughts of harming anyone elseno (2) [place] Suicide: Risk Screen Not Applicable/Able to Answerable to be screened In the Past Month: Have you wished you were or could go to sleep and not wake upno(2) In the Past Month: Have you had any actual thoughts of killing yourself no(2) Lifetime: Have you ever done, started to do, or prepared to do anything to end your lifeno [place] Suicide Risknegative Adult Nutrition Screen: Have you recently lost weight without tryingno Have you been eating poorly because of a decreased appetiteno Malnutrition Screening Tool Score0 Malnutrition Screening Tool RiskMST = 0 or 1 Not at risk. Eating well with little or no weight loss Nutrition Consult needed this visitno Can Patient Participate in Room Serviceyes Patient requires Paper Dishes/Plastic Utensilsno Pain Screen: Pain Scalenumerical 0-10 Pain Scale Educationteaching provided Current Pain Level8 = Severe Acceptable Pain Level0 = None Expression of Pain (nonverbal)verbalization Chronic Painyes Chronic Pain Commentchronic back pain Spiritual Screen: Are there any cultural, spiritual, taoism practices/values/needs that are important for us to knowno CAGE: Is this an injured patient at a Trauma Center ([facility] [place]/[place] /[place]): yes (1) C: Have you ever felt you needed to Cut down on your drinking: no (1) A: Have people Annoyed you by criticizing your drinking: no (1) G: Have you ever felt Guilty about drinking: no (1) E: Have you ever felt you needed a drink first thing in the 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 Immunocompetent persons with underlying chronic conditions or reside in ceramic designer care facilitiesnone of these conditions Persons with Functional or Anatomic Asplenianone of these conditions Immunocompromised Personsnone of these conditions Pneumonia vaccine NOT indicated due to:patient DOES NOT have a condition that indicates vaccination patient/caregiver refusal at this time Kervin (more content not included)... Normal [facility] BASIC METABOLIC PANELon 08 Anion gap [Moles/Vol] 19 mmol/L Normal 10 - 20 [facility] Comment on above: Performed By: #### B MP ####[id number] [place] [address] Calcium [Mass/Vol] 10.0 mg/dL Normal 8.6 - 10.6 [facility] Comment on above: Performed By: #### B MP ####[id number] [place] [address] Chloride [Moles/Vol] 99 mmol/L Normal 98 - 107 [facility] Comment on above: Performed By: #### B MP ####[id number] [place] [address] Creatinine [Mass/Vol] 0.71 mg/dL Normal 0.50 - 1.05 [facility] Comment on above: Performed By: #### B MP ####[id number] [place] [address] GFR- AM. >60 Normal >60 [facility] Comment on above: Result Comment: CALC ULATIONS OF ESTIMATED GFR ARE PERFORMED USING THE MDRD STUDY EQUATION FOR THE IDMS-TRACEABLE CREATININE METHODS. CLIN CHEM 2007;53:766-72 Performed By: #### B MP ####[id number] [place] [address] GFR-NON AM. >60 Normal >60 [facility] Comment on above: Performed By: #### B MP ####[id number] [place] [address] Glucose [Mass/Vol] 85 mg/dL Normal 74 - 99 [facility] Comment on above: Performed By: #### B MP ####[id number] [place] [address] HCO3 (Bld) [Moles/Vol] 23 mmol/L Normal 21 - 32 [facility] Comment on above: Performed By: #### B MP ####[id number] [place] [address] Potassium [Moles/Vol] 3.3 mmol/L Low 3.5 - 5.3 [facility] Comment on above: Performed By: #### B MP ####[id number] [place] [address] Sodium [Moles/Vol] 138 mmol/L Normal 136 - 145 [facility] Comment on above: Performed By: #### B MP ####[id number] [place] [address] Urea nitrogen [Mass/Vol] 7 mg/dL Normal 6 - 23 [facility] Comment on above: Performed By: #### B MP ####[id number] [place] [address] CBC AND DIFFERENTIALon 03-19 % AUTOMATED IMMATURE GRAN 0.2 % Normal 0.0 - 0.9 [facility] Comment on above: Result Comment: Leslie ture Granulocyte Count (IG) includes promyelocytes, myelocytes and metamyelocytes but does not include bands. Percent differential counts (%) should be interpreted in the context of the absolute cell counts (cells/L). Performed By: #### C BCDF ####[id number] [place] [address] Basophils (Bld) [#/Vol] 0.03 10*3/uL Normal 0.00 - 0.10 [facility] Comment on above: Performed By: #### C BCDF ####[id number] [place] [address] Basophils/100 WBC (Bld) 0.6 % Normal 0.0 - 2.0 [facility] Comment on above: Performed By: #### C BCDF ####[id number] [place] [address] Eosinophils (Bld) [#/Vol] 0.06 10*3/uL Normal 0.00 - 0.70 [facility] Comment on above: Performed By: #### C BCDF ####[id number] [place] [address] Eosinophils/100 WBC (Bld) 1.3 % Normal 0.0 - 6.0 [facility] Comment on above: Performed By: #### C BCDF ####[id number] [place] [address] Erythrocyte distribution width (RBC) [Ratio] 12.7 % Normal 11.5 - 14.5 [facility] Comment on above: Performed By: #### C BCDF ####[id number] [place] [address] Hematocrit (Bld) [Volume fraction] 37.0 % Normal 36.0 - 46.0 [facility] Comment on above: Performed By: #### C BCDF ####[id number] [place] [address] Hemoglobin (Bld) [Mass/Vol] 12.6 g/dL Normal 12.0 - 16.0 [facility] Comment on above: Performed By: #### C BCDF ####[id number] [place] [address] Lymphocytes (Bld) [#/Vol] 1.16 10*3/uL Low 1.20 - 4.80 [facility] Comment on above: Performed By: #### C BCDF ####[id number] [place] [address] Lymphocytes/100 WBC (Bld) 24.8 % Normal 13.0 - 44.0 [facility] Comment on above: Performed By: #### C BCDF ####[id number] [place] [address] MCHC (RBC) [Mass/Vol] 34.1 g/dL Normal 32.0 - 36.0 [facility] Comment on above: Performed By: #### C BCDF ####[id number] [place] [address] MCV (RBC) [Entitic vol] 100 fL Normal 80 - 100 [facility] Comment on above: Performed By: #### C BCDF ####[id number] [place] [address] Monocytes (Bld) [#/Vol] 0.46 10*3/uL Normal 0.10 - 1.00 [facility] Comment on above: Performed By: #### C BCDF ####[id number] [place] [address] Monocytes/100 WBC (Bld) 9.8 % Normal 2.0 - 10.0 [facility] Comment on above: Performed By: #### C BCDF ####[id number] [place] [address] Neutrophils (Bld) [#/Vol] 2.96 10*3/uL Normal 1.20 - 7.70 [facility] Comment on above: Performed By: #### C BCDF ####[id number] [place] [address] Neutrophils/100 WBC (Bld) 63.3 % Normal 40.0 - 80.0 [facility] Comment on above: Performed By: #### C BCDF ####[id number] [place] [address] NUCLEATED RBC 0.0 /100 WBC Normal 0.0-0.0 [facility] Comment on above: Performed By: #### C BCDF ####[id number] [place] [address] Platelets (Bld) [#/Vol] 333 10*3/uL Normal 150 - 450 [facility] Comment on above: Performed By: #### C BCDF ####[id number] [place] [address] RBC 3.69 x10E12/L Low 4.00 - 5.20 [facility] Comment on above: Performed By: #### C BCDF ####[id number] [place] [address] WBC (Bld) [#/Vol] 4.7 10*3/uL Normal 4.4 - 11.3 [facility] Comment on above: Performed By: #### C BCDF ####[id number] [facility] [address] CORONAVIRUS 2019, SCREEN ASY MPTOMATICon 03-19-2021 SARS-CoV-2 (COVID-19) RNA JUN+probe Ql (Unsp spec) Not detected Normal Not Detected [facility] Comment on above: Result Comment: . This test has received FDA Emergency Use Authorization (EUA) and has been verified by [facility] ([facility]). This test is only authorized for the duration of time that circumstances exist to justify the authorization of the emergency use of in vitro diagnostic tests for the detection of SARS-CoV-2 virus and/or diagnosis of COVID-19 infection under section 564(b)(1) of the Act, 21 U.S.C. 360bbb-3(b)(1), unless the authorization is terminated or revoked sooner. [facility] is certified under CLIA-88 as qualified to perform high complexity testing. Testing is performed in the [facility] located at [address] [place] [address]. SARS-CoV-2/Flu/RSV Multiplex Test: Fact sheet for providers: https://www.fda.gov/media/545331/download Fact sheet for patients: https://www.fda.gov/media/190332/download Performed By: #### C OVSC #### [address] [place] [address] Lab Specimen Source Nasal, Nasopharyngeal Normal [facility] Comment on above: Performed By: #### C OVSC #### [address] [place] [address] Consult-Orthopaedicson 03-19 Consult-Orthopaedics Service: Service: Orthopaedics History of Present Illness: HPI: History of Present Illness: ARABELLA THORNTON is a 41 year old Female who presented with neck pain, lower back pain, and numbness/tingling in b/ lower extremities + LUE. Ortho was consulted for these complaints. Patient states that she was gardening yesterday when her symptoms in her BLE acutely worsened. 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 She denies having any saddle anesthesia or bowel/bladder incontinence. Orthopaedic Problems/Injuries: -Moderate spinal canal stenosis at the level of C5-6 -Mild bilateral neural foraminal stenosis at L5-S1 due to paraforaminal disc herniation Other Injuries: None Past medical history: Per chart Past surgical history: Per chart Allergies: NKDA Medications: Per chart Social History: Denies smoking, denies drinking, denies IVDU Family History: Non-contributory to this patient's acute surgical issue. Review of Systems: Gen: Denies recent weight loss Neuro: Denies recent confusion Ophtho: Denies changes in vision ENT: Denies changes in hearing Endo: Denies weight loss/weight gain CV: Denies chest pain Resp: Denies shortness of breath GI: Denies melena/hematochezia : Denies painful urination MSK: Per above HPI Heme: No abnormal bleeding Psych: Denies hallucinations Review Family/Social History and ROS: Social History: Smoking Status: never smoker (1) Drug Use: denies (1) Allergies: No Known Allergies: Objective: Physical Exam by System: Constitutional: Resting comfortably in no acute distress Respiratory/Thorax: Breathing comfortably on room air, symmetrical chest rise and fall. Cardiovascular: RRR to palpation Extremities: Spine: C5: SILT Deltoid 5/5 Left; 5/5 Right C6: SILT Wrist Ext: 5/5 Left; 5/5 Right C7: SILT Triceps: 5/5 Left; 5/5 Right C8: SILT Finger flexion: 5/5 Left; 5/5 Right T1: SILT Interossei: 5/5 Left; 5/5 Right Bicep Reflex 2+ Bilaterally BR Reflex 2+ Bilaterally Triceps Reflex 2+ Bilaterally L1: SILT L2: SILT Hip flexors 5/5 Left; 5/5 Right L3: SILT Knee extension 5/5 Left; 5/5 Right L4: SILT Tib Ant. (Dorsiflexion) 5/5 Left; 5/5 Right L5: SILT EHL5/5 Left; 5/5 Right S1: SILT Planter flexion 5/5 Left; 5/5 Right Patellar reflex: 2+ Bilaterally Achilles reflex: 2+ Bilaterally Perianal sensation intact Appropriate rectal tone Negative Pizano bilaterally Negative Babinski bilaterally Assessment: ARABELLA THORNTON is a 41 year old Female who presented with BLE and LUE radicular-type subjective symptoms without objective findings on physical exam. MRI revealed moderate spinal canal stenosis at C5-6 and mild foraminal stenosis at L5-S1. Recommendations: - no acute orthopaedic surgical intervention indicated at this time - WBAT BLE - pain control per ED - Dispo per ED - Recommend following with PM&R - No need to f/u with ortho spine Jasmeet Benites MD PGY-1, Orthopaedic Surgery Pager: [phone] Bran Maddox MD Orthopaedic Surgery, PGY-3 Please page [phone] M-F between 6p and 7a and on weekends Patient will be followed by ortho spine while in house. Please contact respective team for any questions/concerns Ortho Spine team: Sav Rodriguez, PGY-2 - [id number] Axel Wong, PGY-3 - Miguel A Cornell, PGY-4 - [id number] Attestation: Note Completion: I am a: Resident/Fellow Attending AttestationI saw and evaluated the patient. I personally obtained the schafer and critical portions of the history and physical exam or was physically present for schafer and critical portions performed by the resident/fellow. I reviewed the resident/fellows documentation and discussed the patient with the resident/fellow. I agree with the resident/fellows medical decision making as documented in their note with the exception/addition of the following: I personally evaluated the patient [id number] Comments/ Additional Findings As noted She does have cervical spondylosis most notable at C6-7 No significant spinal cord compression and no myelopathic features Agree with non-surgical management Electronic Signatures: Gómez Stewart) (Signed 22-Mar-2021 10:03) Authored: Note Completion Co-Signer: Assessment/Recommendatio ns, Note Completion Bran Maddox ( (Resident)) (Signed 19-Mar-2021 20:49) Authored: Assessment/Recommendatio ns, Note Completion Jasmeet Benites ( (Resident)) (Signed 19-Mar-2021 15:34) Authored: Service, History of Present Illness, Review Family/Social History and ROS, Allergies, Objective, Assessment/Recommendatio ns Last Updated: 22-Mar-2021 10:03 by Gómez Stewart) References: 1. Data Referenced From Risk Screen - Adult Emergency 19-Mar-2021 07:32 Normal [facility] Covid 19 Resultson 1 SARS-CoV-2 (COVID-19) RNA JUN+probe Ql (Unsp spec) NEGATIVE COVID-19 Test Coronaviruses are common world-wide and are the cause of many common colds. SARS-COV2 is a new coronavirus that began circulating worldwide in 2019 so we are calling it COVID-19. It has been estimated that four out of five patients with COVID-19 will recover at home without the need for medical attention. Symptoms of COVID-19 may include cough, fever, shortness of breath, loss of taste or smell and other flu-like symptoms including chills, sore muscles, sore throat, and headache. Severe illness is more common in older people and people with other health problems such as high blood pressure, obesity, and immune system problems. If the test is positive, you have COVID-19. You will be contacted by the ordering physicians office and instructed to remain on home isolation, in accordance with CDC guidelines. You may also be contacted by the [facility] to see if any of your close contacts may have been exposed to the virus and need to quarantine. If the test is negative, you likely do not have COVID-19 at this time, but you still may have a different illness that can spread to other people (like Influenza, or the Flu) and could still be at risk for getting COVID-19. We recommend that you stay away from other people to limit the spread of illness until your symptoms are improving and you are fever-free for 24 hours without the use of fever lowering medications such as acetaminophen or ibuprofen. No test is 100% accurate so if you are still concerned you may have COVID-19, talk to your doctor about the need to continue to stay away from others. Medicines Unless your provider told you not to use the following: Acetaminophen (Tylenol and others) is generally safe. Anti-inflammatory medications, such as Ibuprofen (Advil or Motrin) or Naproxen (Aleve) can also be used. Hewg-eyw-qwwspbw cough and cold medicines can be used according to the instructions on the package. Some fndm-qhf-gahpoor medicines also contain acetaminophen. Make sure you are not taking more than your recommended dose. For those not hospitalized, there is no specific treatment available for this illness. Antibiotics do not treat Coronaviruses. Follow-Up Follow up with your doctor by scheduling a virtual visit or consider follow-up at one of our urgent care fever clinics. If you are having difficulty breathing, or are very weak and having difficulty standing, this is a medical emergency. Call 911 or have someone take you to the nearest emergency room immediately. If possible, wear a facemask. Additional guidance from the CDC for patients who tested POSITIVE for COVID-19 How to isolate: Isolate yourself in a specific room at home and limit your contact with others. Use a separate bathroom from other members of the household, when possible. Leave home only to get essential medical care. Do not go to work, school or public areas. Avoid using public transportation, ride-sharing, or taxis. Restrict contact with pets and other animals. If you must care for your pet or be around animals while you are sick, wash your hands before and after your interaction and wear a facemask. Make sure that shared spaces in the home have good airflow, such as by an air conditioner or an opened window, weather permitting. Personal Hygiene Procedures: Wear a face mask when in the same room as other people or pets. If a face mask interferes with your breathing, others should wear a mask when sharing space with you. Frequent hand-washing: wash your hands with soap and water for at least 20 seconds. If soap and water are not available, use alcohol-based hand project associate. Avoid touching your eyes, nose, and mouth with unwashed hands. Household Hygiene Procedures: Avoid sharing personal household items such as dishes, glassware, cups, eating utensils, towels or bedding with other people or pets in your home. After use, these items should be washed with soap and hot water. Disinfect all high-touch surfaces every day with antibacterial cleaning solutions such as Lysol wipes, bleach, cleansers, etc. High-touch surfaces include tabletops, doorknobs, bathroom fixtures, toilets, phones, keyboards, tablets and bedside tables. Immediately clean any surfaces that may have blood, poop or body fluids on them, using antibacterial cleaning solutions such as Lysol wipes, bleach, cleansers, etc. If clothing or bedding come into contact with blood, poop or body fluids, they should be washed immediately. Follow the directions on the laundry detergent and clothing labels but hot water is recommended when possible. Stopping home isolation precautions: If possible, consult your doctor before stopping home isolation precautions. According to the CDC, you can discontinue home isolation precautions when you have met both of these criteria: Your fever and respiratory symptoms have been gone for 24 merritt (more content not included)... Normal [facility] NR MRI CERVICAL WOon 021 NR MRI CERVICAL WO Patient Name: ARABELLA THORNTON STUDY: MRI CERVICAL WO; 03/19/2021 1:00 pm INDICATION: Partially visualized degenerative changes on T spine MRI. COMPARISON: Thoracic spine MRI, same day ACCESSION NUMBER(S): [id number] ORDERING CLINICIAN: DAYDAY BETTS TECHNIQUE: Sagittal T1, T2, STIR, axial T1 and axial T2 weighted images were acquired through the cervical spine. FINDINGS: There is straightening of the normal cervical lordosis, which may be related to patient positioning or muscle spasm. The alignment is preserved. Vertebral bodies demonstrate expected height. Multilevel degenerative endplate changes without associated marrow edema. Multilevel loss of normal disc T2 signal and disc height. There is mild flattening of the ventral cord at C5-6 and C6-7, no abnormal cord signal. C1-C2: The cervicomedullary junction appears unremarkable. No spinal canal stenosis. C2-C3: No posterior disc contour abnormality. No significant spinal canal or neural foraminal stenosis. C3-C4: No posterior disc contour abnormality. No significant spinal canal or neural foraminal stenosis. C4-C5: Disc osteophyte complex with mild spinal canal narrowing. C5-C6: Disc osteophyte complex and facet and uncovertebral hypertrophy with moderate spinal canal narrowing and mild bilateral neural foramen narrowing. C6-C7: Asymmetric disc osteophyte complex and facet and uncovertebral hypertrophy with moderate spinal canal narrowing as well as mild right and moderate left neural foramen narrowing. C7-T1: No posterior disc contour abnormality. No significant spinal canal or neural foraminal stenosis. The prevertebral and posterior paraspinous soft tissues are within normal limits. IMPRESSION: Multilevel degenerative changes most pronounced at C5-6 and C6-7, no abnormal cord signal. Electronically signed by: ZAC CHIN MD, PHD [facility] NR MRI L-SPINE WOon 03-19-20 21 NR MRI L-SPINE WO Patient Name: ARABELLA THORNTON STUDY: MRI T-SPINE WO; MRI L-SPINE WO; 03/19/2021 7:28 am; 03/19/2021 7:31 am INDICATION: A 41-year-old female with weak right HF, weak bilateral DF,. COMPARISON: None. ACCESSION NUMBER(S): [id number]; [id number] ORDERING CLINICIAN: ROBERT HARP TECHNIQUE: Sagittal T1, T2, STIR and axial T2 and T1 weighted MR images of the thoracic and lumbar spine were obtained. FINDINGS: There is moderate spinal canal stenosis at the level of C5-C6 and C6-C7, with effacement of the ventral subarachnoid space and mild indentation of the spinal cord, incompletely characterized on current examination. THORACIC SPINE: Limited coronal images demonstrate mild dextrocurvature of the upper thoracic spine. There is variant thoracic anatomy, with 11 thoracic type, rib-bearing vertebral bodies. Otherwise, the thoracic vertebral alignment is within normal limits. Vertebral body heights are preserved. T2/stir hyperintense lesions in the T8 and T10 vertebral bodies likely represent hemangiomas. T2/T1 hyperintense structure in the T4 vertebral body may represent focal fatty rest or an atypical hemangioma. There is no evidence of marrow or endplate edema. Intervertebral discs are within normal limits. Although the exam is mildly degraded by motion, within limits of the study, the thoracic spinal cord is unremarkable in signal and morphology. Ligamentum flavum hypertrophy at the level of T10-T11 on the left effaces the dorsal thecal sac without significant spinal canal stenosis. Otherwise causes no significant spinal or neural foraminal stenosis in the thoracic spine. There is a 1.5 cm T2 hyperintense cystic structure in the right hepatic lobe. Paraspinal musculature is unremarkable in appearance. LUMBAR SPINE: There are 5 lumbar type, non rib-bearing vertebral bodies, with loss intervertebral disc space labeled L5-S1. There is 3-4 mm retrolisthesis of L4 on L5. Vertebral body heights are preserved. Vertebral marrow is within normal limits, without evidence of marrow edema. There is intervertebral disc desiccation with mild disc height loss at L5-S1. Conus medullaris terminates at the level of L1-L2, and is unremarkable in appearance. T11-L1: No significant spinal canal or neural foraminal stenosis. L1-L2: No significant spinal canal or neural foraminal stenosis. L2-L3: No significant spinal canal or neural foraminal stenosis. L3-L4: No significant spinal canal or neural foraminal stenosis. L4-L5: Mild circumferential disc bulge encroaches on the bilateral neural foramina without significant spinal canal or neural foraminal stenosis. L5-S1: No significant spinal canal stenosis, with mild bilateral neural foraminal narrowing due to para foraminal disc bulge/osteophytic spurring. The paraspinal soft tissues are unremarkable in appearance. IMPRESSION: 1. Variant thoracic anatomy, with 11 thoracic type rib-bearing vertebral bodies. No significant spinal canal or neural foraminal stenosis in the thoracic spine. 2. No significant spinal canal with mild bilateral neural foraminal stenosis at L5-S1 due to paraforaminal disc bulge and osteophytic spurring. 3. Limited electric relay tester imaging of the cervical spine demonstrates moderate spinal canal stenosis at the level of C5-C6 and C6-C7, with effacement of the ventral thecal sac and indentation on the spinal cord, incompletely characterized on current exam. Dedicated MRI of the cervical spine could be considered for further characterization as clinically necessary. I personally reviewed the images/study and Dr. Magana's interpretation and I agree with the findings as stated. Electronically signed by: JASMEET ENRIQUEZ MD [facility] NR MRI T-SPINE WOon 03-19-20 NR MRI T-SPINE WO Patient Name: ARABELLA THORNTON STUDY: MRI T-SPINE WO; MRI L-SPINE WO; 03/19/2021 7:28 am; 03/19/2021 7:31 am INDICATION: A 41-year-old female with weak right HF, weak bilateral DF,. COMPARISON: None. ACCESSION NUMBER(S): [id number]; [id number] ORDERING CLINICIAN: ROBERT HARP TECHNIQUE: Sagittal T1, T2, STIR and axial T2 and T1 weighted MR images of the thoracic and lumbar spine were obtained. FINDINGS: There is moderate spinal canal stenosis at the level of C5-C6 and C6-C7, with effacement of the ventral subarachnoid space and mild indentation of the spinal cord, incompletely characterized on current examination. THORACIC SPINE: Limited coronal images demonstrate mild dextrocurvature of the upper thoracic spine. There is variant thoracic anatomy, with 11 thoracic type, rib-bearing vertebral bodies. Otherwise, the thoracic vertebral alignment is within normal limits. Vertebral body heights are preserved. T2/stir hyperintense lesions in the T8 and T10 vertebral bodies likely represent hemangiomas. T2/T1 hyperintense structure in the T4 vertebral body may represent focal fatty rest or an atypical hemangioma. There is no evidence of marrow or endplate edema. Intervertebral discs are within normal limits. Although the exam is mildly degraded by motion, within limits of the study, the thoracic spinal cord is unremarkable in signal and morphology. Ligamentum flavum hypertrophy at the level of T10-T11 on the left effaces the dorsal thecal sac without significant spinal canal stenosis. Otherwise causes no significant spinal or neural foraminal stenosis in the thoracic spine. There is a 1.5 cm T2 hyperintense cystic structure in the right hepatic lobe. Paraspinal musculature is unremarkable in appearance. LUMBAR SPINE: There are 5 lumbar type, non rib-bearing vertebral bodies, with loss intervertebral disc space labeled L5-S1. There is 3-4 mm retrolisthesis of L4 on L5. Vertebral body heights are preserved. Vertebral marrow is within normal limits, without evidence of marrow edema. There is intervertebral disc desiccation with mild disc height loss at L5-S1. Conus medullaris terminates at the level of L1-L2, and is unremarkable in appearance. T11-L1: No significant spinal canal or neural foraminal stenosis. L1-L2: No significant spinal canal or neural foraminal stenosis. L2-L3: No significant spinal canal or neural foraminal stenosis. L3-L4: No significant spinal canal or neural foraminal stenosis. L4-L5: Mild circumferential disc bulge encroaches on the bilateral neural foramina without significant spinal canal or neural foraminal stenosis. L5-S1: No significant spinal canal stenosis, with mild bilateral neural foraminal narrowing due to para foraminal disc bulge/osteophytic spurring. The paraspinal soft tissues are unremarkable in appearance. IMPRESSION: 1. Variant thoracic anatomy, with 11 thoracic type rib-bearing vertebral bodies. No significant spinal canal or neural foraminal stenosis in the thoracic spine. 2. No significant spinal canal with mild bilateral neural foraminal stenosis at L5-S1 due to paraforaminal disc bulge and osteophytic spurring. 3. Limited electric relay tester imaging of the cervical spine demonstrates moderate spinal canal stenosis at the level of C5-C6 and C6-C7, with effacement of the ventral thecal sac and indentation on the spinal cord, incompletely characterized on current exam. Dedicated MRI of the cervical spine could be considered for further characterization as clinically necessary. I personally reviewed the images/study and Dr. Magana's interpretation and I agree with the findings as stated. Electronically signed by: JASMEET ENRIQUEZ MD [facility] Order Reconciliationon 03-19 Order Reconciliation Page 1 Admission Reconciliation Document Reconciliation Type: Admission requested on behalf of Jasmeet Devries (Advanced Practice Nurse) done by Jasmeet Devries (DIRECTOR SYSTEMS-GAS APPLIANCE MECHANIC) Admission - Reconciliation: 19-Mar-2021 15:35 by: Jasmeet Devries (DIRECTOR SYSTEMS-GAS APPLIANCE MECHANIC) Home MedicationsEnteredLast Dose TakenReconciled with current Order Reconciliation Comment/ Additional Information amoxicillin-clavulanate 500 mg-125 mg oral tablet 500 milligram(s) orally 2 times a day 19-Mar-2021 NoLongerTaking Diflucan 150 mg oral tablet 1 tab(s) orally once a day 19-Mar-2021 NoLongerTaking docusate sodium 100 mg oral capsule 1 cap(s) orally 2 times a day, As Needed, Stool Softening 19-Mar-2021 NoLongerTaking ibuprofen 800 mg oral tablet 1 tab(s) orally every 6 hours, As Needed, Pain - Mild (1-3) cramping or back pain 19-Mar-2021 NoLongerTaking Multivitamins oral tablet 1 tab(s) orally once a day 19-Mar-2021 NoLongerTaking Additional Current Orders Lidocaine 5% TransDermal Film (LIDODERM)DOSE = 1 patch TransDermal Every 24 Hours, Apply to Lower Back [facility] Patient Profile - Adult v2on 03-19-2021 Patient Profile - Adult v2 Profile: Initial Info: How to be Addressedkatie Spoken Language PreferredEnglish Stated Reason for Admissionacute exacerbation of pts back pain Wants Family/Rep Notified of Admissionn/a; family present Notify PCPnotify PCP Informed of Patient Visiting Rightsyes [facility] Employment Statusemployed Patient Belongingsremains with patient Patient Belongings Remaining with Patientclothing; vision aids Medications Brought to Hospitalno General Health: Weight in kg66 kilogram(s)(1) Weight in bbx188.5 pound(s) Weight Methodactual (measured) Scale Typestanding Height in cm165.1 centimeter(s) Height in feet5 feet(1) Height in inches5 inch(es)(1) Height Methodestimated BMI (kg/m2)24.213 square meter RSP Based Care: How would you like to participate in your care I don tknow What is the number one concern for you during this hospitalization to get better What is the most important thing we can do to support you during this hospitalization to help me get better Is there anything we need to know to best care for you no Substance: Smoking Statusnever smoker (2) Drug Usedenies (2) Health Mgmt: Symptoms/Conditions Managed at [facility] Are You no (3) Are You Currently Breastfeedingno (3) Relationship/Environ: Resource/Environmental Concernsnone Primary Source of Support/Comfortspouse Lives Withdependent child(ivonne); spouse Living Arrangementshouse Services Anticipated at Transitionnone Anticipated Transition Tohome Significant IndicatorsComplete Information Review: Allergies, Home Meds and Significant Events have been Reviewed and Verified with Patient/Familyyes ALLERGY, INTOLERANCE, ADVERSE EVENT: Allergies: No Known Allergies: Active Electronic Signatures: Genesis Miles (KIARA) (Signed 19-Mar-2021 19:03) Authored: Initial Info, General Health, RSP Based Care, Substance, Health Mgmt, Relationship/Environ, Additional Information Last Updated: 19-Mar-2021 19:03 by Genesis Mlies (KIARA) References: 1. Data Referenced From 1. Vital Signs 19-Mar-2021 16:43 2. Data Referenced From Consult-Orthopaedics 19-Mar-2021 10:35 3. Data Referenced From History and Physical 19-Mar-2021 15:43 [facility] Provider Note - ED Care Coleman sitionon 03-19-2021 Provider Note - ED Care Transition ED Care Transition: Chart Review: RESULTS/VITAL SIGNS RESULTS: Recent Lab Results: I have reviewed these laboratory results: Coronavirus 2019, Screen Asymptomatic 19-Mar-2021 09:46:00 ResultValue Fluid Source Nasal, Nasopharyngeal Coronavirus 2019,PCR NOT DETECTED Reference Range: Not Detected . This test has received FDA Emergency Use Authorization (EUA) and has been verified by [facility] ([facility]). This test is only authorized for the duration of time koby Complete Blood Count + Differential 19-Mar-2021 09:45:00 ResultValue White Blood Cell Count 4.7 Nucleated Erythrocyte Count 0.0 Red Blood Cell Count 3.69 L HGB 12.6 HCT 37.0 MCV 100 MCHC 34.1 PLT 333 RDW-CV 12.7 Neutrophil % 63.3 Immature Granulocytes % 0.2 Lymphocyte % 24.8 Monocyte % 9.8 Eosinophil % 1.3 Basophil % 0.6 Neutrophil Count 2.96 Lymphocyte Count 1.16 L Monocyte Count 0.46 Eosinophil Count 0.06 Basophil Count 0.03 Basic Metabolic Panel 19-Mar-2021 09:45:00 ResultValue Glucose, Serum 85 NA 138 K 3.3 L CL 99 Bicarbonate, Serum 23 Anion Gap, Serum 19 BUN 7 CREAT 0.71 GFR-Non >60 GFR- >60 Calcium, Serum 10.0 Radiology Results: Impression: Multilevel degenerative changes most pronounced at C5-6 and C6-7, no abnormalcord signal. MRI Cervical without Contrast [Mar 19 2021 1:35PM] Impression: 1. Variant thoracic anatomy, with 11 thoracic type rib-bearing vertebral bodies. No significant spinal canal or neural foraminal stenosis in the thoracic spine. 2. No significant spinal canal with mild bilateral neural foraminal stenosis at L5-S1 due to paraforaminal disc bulge and osteophytic spurring. 3. Limited electric relay tester imaging of the cervical spine demonstrates moderate spinal canal stenosis at the level of C5-C6 and C6-C7, with effacement of the ventral thecal sac and indentation on the spinal cord, incompletely characterized on current exam. Dedicated MRI of the cervical spine could be considered for further characterization as clinically necessary. MRI T Spine without Contrast [Mar 19 2021 8:08AM] Impression: 1. Variant thoracic anatomy, with 11 thoracic type rib-bearing vertebral bodies. No significant spinal canal or neural foraminal stenosis in the thoracic spine. 2. No significant spinal canal with mild bilateral neural foraminal stenosis at L5-S1 due to paraforaminal disc bulge and osteophytic spurring. 3. Limited electric relay tester imaging of the cervical spine demonstrates moderate spinal canal stenosis at the level of C5-C6 and C6-C7, with effacement of the ventral thecal sac and indentation on the spinal cord, incompletely characterized on current exam. Dedicated MRI of the cervical spine could be considered for further characterization as clinically necessary. MRI L Spine without Contrast [Mar 19 2021 8:08AM] VITAL SIGNS: T PRBP SpO2O2(LPM) %FiO2 Method 19-Mar-2021 11:00:[id number] 19-Mar-2021 10:19:[id number]/87 98 19-Mar-2021 10:00:00-70811/87 19-Mar-2021 09:00:[id number]/84 94 19-Mar-2021 08:14:[id number]/102 96 19-Mar-2021 08:00:[id number]/102 99 19-Mar-2021 05:38:[id number]/82 99 19-Mar-2021 02:32:[id number]/98 100 room air, no respiratory support MEDICAL DECISION MAKING/ED COURSE MDM/ED COURSE: Handoff received: 03/19/2021 0700 Handoff care received from Dr. Harp at this time. Please refer to his note for initial plan of care of this patient. Patient signed out to me pending work-up results and reevaluation. I agree with my prior providers assessment and plan of care. MRIs showed mild bilateral neural foraminal stenosis at L5-S1 due due to para for my normal disc bulge and osteophytic spurring, limited electric relay tester imaging of the cervical spine demonstrates moderate spinal canal stenosis at the level of C5-C6 and C6-C7 with effacement of the ventral thecal sac and indention on the spinal cord and recommended dedicated MRI of the cervical spine which I ordered and showed multilevel degenerative changes most pronounced at C5-6 and C6-7 with no abnormal cord signal. See results review. Orthopedics was consulted as they were on for spine due to the MRI results and the patient's symptoms. They performed her evaluation and stated there was no acute surgical intervention to be performed at this time, see their consult note for further details. She was noted to have a full bladder on her MRI and was able to void without difficulty. Despite multiple doses of pain management while in the emergency department, she was unable to ambulate without extreme help. Therefore she was not safe to be discharged home due to risk of falling. She is agreeable for admission for pain management, physical therapy. Laboratory studies and Covid swabs were sent for admission which were unremarkable. She remained hemodynamically stable. Previous (more content not included)... [facility] Provider Note - ED v3on 03-07 Provider Note - ED v3 Provider Note: Chart Review: ED NOTES ED NOTES: HPI: Patient is a 41-year-old female with no significant medical history presents for back pain. Patient states she has a history of L3/L4 left-sided herniation and has intermittent flareups. Patient was working her garden earlier today and felt mild back pain, was not severe until patient arrived at work and was unable to ambulate due to lower extremity weakness. Patient endorses low back and bilateral lower extremity paresthesias. Denies any saddle anesthesia, urinary retention, bowel control problems. Denies any fevers, chills. ROS: A complete review of systems was performed and is otherwise negative except as noted in HPI PMH/PSH: Per HPI FH: Noncontributory SH: Denies any tobacco, alcohol or drugs Allergies: Per EMR Medications: Per EMR PE: Vital signs reviewed in nursing triage note, EMR flow sheets, and at patient's bedside. GEN: Moderately uncomfortable appearing, no acute distress HEAD: atraumatic EYES: PEERL, EOMI, no scleral icterus ENT: no rhinorrhea NECK: supple CVS/CHEST: reg rate, nl rhythm PULM: CTA b/l no wheezes, crackles, or rhonchi BACK: no CVA tenderness, no vertebral point tenderness, diffuse low back pain, numbness to lower back EXT: no LE edema, right hip flexor 4 out of 5, bilateral dorsiflexion 4 out of 5, remainder of lower extremity strength 5 out of 5 NEURO: CN 2-12 grossly intact, lower extremity sensation to light touch decreased SKIN: warm, dry, no rashes or ulcerations PSYCH: Alert and oriented, answers questions appropriately ED Course/Treatment/MDM: Results: *See section(s) entitled ``Lab Results, ``Diagnostic Imaging Results Review for entirety. Notable results listed below - Labs/Images: MRI pending Treatment/Management/The rapy: Valium, morphine, Dilaudid, Zofran, Ativan MDM Patient is a 41-year-old female with no significant medical history presents for back pain. Differential includes cord compression, low back muscle strain. Patient has objective weakness on her exam as well as decreased sensation lower extremities and low back, concerning for possible cord compression. MRI of T and L-spine are ordered and are pending. Patient requires premedication due to severe claustrophobia. Patient was given Valium prior to transfer to MRI. Patient continued to have claustrophobia and was given Ativan in addition to this. If patient's MRI is negative, her symptoms are likely due to low back strain with possible herniation of disks. Patient was handed off in stable condition pending completion of MRI and results as well as final disposition. Clinical Impression: *See section entitled ``Diagnoses/Visit Problems Dispo Handoff Patient discussed with Dr. Navarro. Disclaimer: This note was dictated using speech recognition software. Minor errors in hollow handle knife assembler may be present. Please call if questions. Robert Harp MD Emergency Medicine PGY3 [employer] HISTORY OF PRESENTING ILLNESS ARABELLA is a 41 year old Female and was seen by me at 19-Mar-2021 03:16 for a chief complaint of back pain . Other complaints include: Patient c/o back pain after gardening prior to work. Now having difficulty with walking. Patient has a past history of a herniated disc. (1). Triage Information: Most recent Vital Sign Value Date Temp (F): 97.1 03-19-2021 02:32 Temp (C): 36.2 03-19-2021 02:32 Heart Rate (beats/min): 86 03-19-2021 02:32 Respirations (breaths/min): 17 03-19-2021 02:32 SpO2 (%): 100 03-19-2021 02:32 BP Systolic (mm Hg): 158 03-19-2021 02:32 BP Diastolic (mm Hg): 98 03-19-2021 02:32 PAST MEDICAL HISTORY ALLERGIES/INTOLERANCES: No Known Allergies HEALTH HISTORY: No documented data. OUTPATIENT MEDICATIONS: Home Medications Review Status for Reconciliation: Not Done Med Status: No Current Medications Drug Name: cyclobenzaprine 10 mg oral tablet Instructions: 1 tab(s) orally 3 times a day, As Needed for muslce pain Drug Name: lidocaine 5% topical film Instructions: Apply topically to affected area once a day to back for pain Drug Name: oxyCODONE 5 mg oral tablet Instructions: 1 tab(s) orally every 4 hours, As needed, severe pain. ICD 10 code M54.9 Back Pain Drug Name: dexamethasone 2 mg oral tablet Instructions: 3 tab(s) orally 2 times a day for 2 days, then 2 tabs for 2 days, then 1 tab for 2 days, then stop. Drug Name: ibuprofen 800 mg oral tablet Instructions: 1 tab(s) orally every 8 hours, As Needed for mild to moderate pain SIGNIFICANT EVENTS: Past Medical History Description:denies DISPOSITION Diagnosis/Annotation: ED Dx Name:Back pain Code:M54.9 Name:Impaired ambulation Code:R26.2 Disposition: HANDOFF CONSULT Attestation: I saw and evaluated the patient. I personally obtained the schafer and critical portions of the history and physical exam or was physically pr (more content not included)... [facility] Risk Screen - Adult Emergenc yon 03-19-2021 Risk Screen - Adult Emergency Preferred Language: Preferred Language: Preferred Language for Discussing Health Care (patient/designee)Kary pryor Advanced Directives: Advance Directive/DNRno Family Violence Adult: Abuse Screen: Are you or have you been threatened or abused physically, emotionally, or sexually by anyoneno Learning Assessment (Patient): Learning Assessment (Patient): Patient is Able to be Assessed for Learningyes Factors Influencing Readiness to Learnacuteness of illness; anxiety Factors that Impact Ability to Learnnone Devices/Methods Used to Communicatenone Learning Preferencesverbal instruction Cultural Considerationsnone Developmental Considerationsnone Church Considerationsnone Learning Assessment (Other Learner): Learning Assessment (Other Learner): Other learner availableno Pressure Injury/TB/Substance: Pressure Injury: Pressure Injury Present on Admissionno Do you have a coughno Smoking Statusnever smoker Drug Usedenies Admission Risk Screen: Significant IndicatorsComplete CAGE: CAGE: Is this an injured patient at a Trauma Center ([facility] [place]/[place] /[place]): yes C: Have you ever felt you needed to Cut down on your drinking: no A: Have people Annoyed you by criticizing your drinking: no G: Have you ever felt Guilty about drinking: no E: Have you ever felt you needed a drink first thing in the morning (Eye-analytical manager) to steady your nerves or to get rid of hangover: no Electronic Signatures: Katherine Hager) (Signed 19-Mar-2021 07:33) Authored: Preferred Language, Advanced Directives, Family Violence Adult, Learning Assessment (Patient), Learning Assessment (Other Learner), Pressure Injury/TB/Substance, Pressure Injury, CAGE Last Updated: 19-Mar-2021 07:33 by Katherine Hager (CATHY) [facility] Triage - EDon 03-19-2021 Triage - ED Quick Triage: Are You no Have You Given In The Last 6 Weeksno Are You Currently Breastfeedingno Chart Review: ARRIVAL INFORMATION Mode of Arrival: private vehicle CHIEF COMPLAINT ARABELLA THORNTON is a Female patient with a chief complaint of back pain. Other Complaints: Patient c/o back pain after gardening prior to work. Now having difficulty with walking. Patient has a past history of a herniated disc. Triage Date/Time: 19-Mar-2021 02:32 HUBERT: 3V Vital Signs: Temperature: 97.1F ( 36.2C) taken temporal Blood Pressure: 158/98 Mean: Heart Rate: 86 Respiratory Rate: 17 Pulse Oximetry: 100% on room air, no respiratory support. Height: 5 feet 4 inches. 162.5 CM Weight: 141.9 pounds. Calculated 64.4 kg. (stated) Calculated BMI (kg/m2): 24.388 Calculated BSA (m2) 1.70 Nomi Coma Scale: Best Eye Response: (E4) spontaneous Best Motor Response: (M6) obeys commands Best Verbal Response: (V5) oriented Nomi Score: 15 Allergies: no Patient has homicidal thoughts: no Symptom Notes: . Symptoms Are POSITIVE For: difficulty bending and difficulty walking. Symptoms Are Negative For: bruising, flank pain, headache, hematuria, muscle cramps, neck pain, numbness and tingling. Risk Screens Suicide Risk Screen In the Past Month: Have you wished you were or wished you could go to sleep and not wake up no In the Past Month: Have you had any actual thoughts of killing yourself no In Your Lifetime: Have you ever done anything, started to do anything, or prepared to do anything to end your life no Howard Fall Scale Screening Has the patient fallen before (or is the patient in the ED as a result of a fall) has not had a fall Does the patient have an impaired gait does not have impaired gait Is the patient cognitively impaired not cognitively impaired Interventions: Howard Fall Interventions: LOW INTERVENTIONS: *patient oriented to surroundings and call system, * patient/family falls education completed and documented, *patients fall status communicated during bedside handoff, *whiteboard updated, *mode of toileting discussed with patient, *bed in low position with brakes locked, *call light in reach, * non-skid footwear TRAVEL HISTORY Travel History Coronavirus Screening: no exposure or symptoms Travel Exposure History: NO travel to International locations in the past 30 days PAIN Pain Scale Used: SHARONDA Past Medical History: Past Medical History Reviewedyes denies: Past Medical History, Active Electronic Signatures: Kianna Terry (RN) (Signed 19-Mar-2021 02:34) Entered: Risk Screens, Pain, Travel History, Chart Review, Scores, Past Medical History Authored: Quick Triage, Risk Screens, Pain, Travel History, Chart Review, Scores, Past Medical History Last Updated: 19-Mar-2021 02:34 by Kianna Terry (RN) [facility] Provider [place] 01-14-2021 Provider Orders [id number] TIFF [facility] Coding Summaryon 09-17-2020 Coding Summary CODING DATE: [facility] STATUS: Home PAYOR: Quinton Brennan APC DESCRIPTION 5522 Level 2 Imaging without Contrast ADMIT DX: REASON FOR VISIT DX: M54.5 Low back pain M54.16 Radiculopathy, lumbar region FINAL DX: PRINCIPAL: M54.5 Low back pain SECONDARY: M54.16 Radiculopathy, lumbar region PYMT PROC APC STAT DESCRIPTION DOCTOR NAME DATE NOTE: The code number assigned matches the documented diagnosis and / or procedure in the patient's chart. However, the narrative phrase printed from the coding software may appear abbreviated, or result in slightly different terminology. Coded By: Allie Clemons Date Saved: 09/17/2020 03:59 pm [facility] Provider [place] 09-17-2020 Provider Orders [id number] TIFF [facility] XR Spine Lumbosacral Minimum 4 Viewson 09-16-2020 XR Spine Lumbosacral Minimum 4 Views EXAM: XR Spine Lumbosacral Minimum 4 Views HISTORY: M54.5 LOW BACK PAIN , M54.16 RADICULOPATHY, LUMBAR REGION. COMPARISON: None. TECHNIQUE: 5 views of the lumbar spine were obtained to include AP, lateral, both oblique, and directed lateral lumbosacral views. FINDINGS: Vertebral body heights are grossly well-maintained. No significant disc space narrowing is seen. Mild degenerative facet changes suggested bilaterally at L4-L5 as well as L5-S1 on the right. No obvious spondylolysis or spondylolisthesis. No definite acute fracture or dislocation. There is slight convexity of the lumbar spine to the left. IMPRESSION: Lumbar spine study demonstrates mild degenerative changes as described. Slight convexity to the left. Follow up as needed. Final Dictated by: Kenyon Hooper MD Dictated DT/TM: 09/16/20 2:18 Signed (Electronic Signature): Kenyon Hooper MD 09/16/20 3:36 pm Technologist: LISSETTE LOVETT [facility] Vital Signs Date Time Vital Sign Value Performing Clinician Facility 07-08-2022 11:20-0500 Body height 163.19 cm Juan David Jose Other [employer] Other 07-08-2022 11:20-0500 Body mass index (BMI) [Ratio] 21.29 kg/m2 Juan David Jose Other [employer] Other 07-08-2022 11:20-0500 Body weight 56.7 kg Juan David Jose Other [employer] Other 12-07-2021 11:20-0400 Body height 163.19 cm Juan David Jose Other [employer] Other 12-07-2021 11:20-0400 Body mass index (BMI) [Ratio] 23.84 kg/m2 Juan David Jose Other [employer] Other 12-07-2021 11:20-0400 Body weight 63.5 kg Juan David Jose Other [employer] Other 10-12-2021 12:00-0500 Body height 163.19 cm Juan David Jose Other [employer] Other 10-12-2021 12:00-0500 Body mass index (BMI) [Ratio] 23.84 kg/m2 Juan David Jose Other [employer] Other 10-12-2021 12:00-0500 Body weight 63.5 kg Juan David Jose Other [employer] Other 09-14-2021 08:00-0500 Body temperature 98.7 [degF] DO Migue Bunting Work Phone: [facility] 09-14-2021 08:00-0500 Diastolic blood pressure 75 mm[Hg] DO Migue Bunting Work Phone: [facility] 09-14-2021 08:00-0500 Heart rate 64 /min DO Migue Bunting Work Phone: [facility] 09-14-2021 08:00-0500 SaO2% (BldA) [Mass fraction] 100 % DO Migue Bunting Work Phone: [facility] 09-14-2021 08:00-0500 Systolic blood pressure 185 mm[Hg] DO Migue Bunting Work Phone: [facility] 09-14-2021 04:00-0500 Respiratory rate 18 /min DO Migue Bunting Work Phone: [facility] 09-13-2021 14:17-0500 Inhaled oxygen flow rate 8 L/min DO Migue Bunting Work Phone: [facility] 09-13-2021 11:11-0500 Body height 163.19 cm DO Migue Bunting Work Phone: [facility] 09-13-2021 11:11-0500 Body mass index (BMI) [Ratio] 24.4 kg/m2 DO Migue Bunting Work Phone: [facility] 09-13-2021 11:11-0500 Body weight 65 kg DO Migue Bunting Work Phone: [facility] 08-05-2021 15:40-0500 Body height 163.19 cm Juan David Jose Other [employer] Other 08-05-2021 15:40-0500 Body mass index (BMI) [Ratio] 23.84 kg/m2 Juan David Jose Other [employer] Other 08-05-2021 15:40-0500 Body weight 63.5 kg Juan David Jose Other [employer] Other 07-20-2021 13:15-0500 Body height 163.19 cm Carly Nguyen Other [employer] Other 07-20-2021 13:15-0500 Body mass index (BMI) [Ratio] 23.84 kg/m2 Carly Nguyen Other [employer] Other 07-20-2021 13:15-0500 Body temperature 98.6 [degF] Carly Nguyen Other [employer] Other 07-20-2021 13:15-0500 Body weight 63.5 kg Carly Yamileth Other [employer] Other 07-20-2021 13:15-0500 Respiratory rate 18 /min Carly Nguyen Other [employer] Other 07-20-2021 13:15-0500 SaO2% (BldA) [Mass fraction] 98 % Carly Nguyen Other [employer] Other 05-21-2021 11:00-0400 Body height 163.19 cm Ever [employer] Other [employer] Other 05-21-2021 11:00-0400 Body mass index (BMI) [Ratio] 25.89 kg/m2 [employer] Other [employer] Other 05-21-2021 11:00-0400 Body weight 68.95 kg [employer] Other [employer] Other 05-21-2021 11:00-0400 Diastolic blood pressure 80 mm[Hg] [employer] Other [employer] Other 05-21-2021 11:00-0400 Systolic blood pressure 110 mm[Hg] [employer] Other [employer] Other Encounters Encounter Date Encounter Type Care Provider Facility Start: 03-01-2023 End: 03-01-2023 ambulatory Migue Bunting Facility:[facility] Start: 07-08-2022 End: 07-08-2022 ambulatory Juan David Jose Other [facility] [employer] Other Start: 07-08-2022 Office outpatient vi sit 15 minutes Juan David Jose [facility] Start: 07-06-2022 End: 07-06-2022 ambulatory Migue Bunting Facility:[facility] Start: 05-11-2022 End: 05-11-2022 ambulatory Migue Bunting Facility:[facility] Start: 05-11-2022 End: 05-11-2022 ambulatory DO Migue Bunting Work Phone: [facility] Work Phone: Start: 05-11-2022 End: 05-11-2022 Patient encounter procedure DO Migue Bunting Work Phone: [facility] [place] Start: 12-07-2021 End: 12-07-2021 ambulatory Juan David Jose Other [employer] Other Start: 12-07-2021 Follow-up encounter Juan David Jose [facility] Start: 12-06-2021 End: 12-06-2021 Patient encounter procedure DO Migue Bunting Work Phone: [facility] Start: 10-12-2021 End: 10-12-2021 ambulatory Juan David Jose Other [employer] Other Start: 10-12-2021 Postop follow up vis it related to original px Juan David Jose [facility] Start: 10-11-2021 End: 10-11-2021 Patient encounter procedure DO Migue Bunting Work Phone: [facility] Start: 09-13-2021 End: 09-14-2021 Admission to same day surgery center Juan David Jose Other [facility] Start: 09-13-2021 End: 09-13-2021 ambulatory Juan David Jose Other [employer] Other Start: 08-05-2021 End: 08-05-2021 ambulatory Juan David Jose Other [employer] Other Start: 08-05-2021 Office outpatient vi sit 40 minutes Juan David Jose [facility] Start: 07-20-2021 End: 07-20-2021 ambulatory CARLY NGUYEN Facility:[facility] Start: 07-20-2021 Office outpatient vi sit 15 minutes Carly Nguyen [facility] Start: 05-27-2021 (Procedure) Billie Apple [facility] Start: 05-21-2021 Office consultation new/estab patient 60 min Ever [facility] Procedures Date Procedure Procedure Detail Performing Clinician Start: 12-06-2021 X-ray of cervical spine DO Migue Bunting Work Phone: Start: 10-11-2021 X-ray of cervical spine DO Migue Bunting Work Phone: Start: 09-13-2021 OR Cervical Fusion Anterior (Not Applicable) DO Migue Bunting Work Phone: Start: 09-13-2021 X-ray of cervical spine DO Migue Bunting Work Phone: Plan of Treatment Date Care Activity Detail Author Patient referral [facility] Work Phone: Payers Date Payer Category Payer Self-pay [id number] 1980 Unknown [id number] [id number] 1980 Unknown [id number] [id number] [id number] 1961 Unknown [id number] 1961 Unknown [id number] Unknown [id number] Unknown [id number] 2.16.8 [id number] Unknown [id number] 2.16.8 [id number] Unknown [id number] 2.16.8 [id number] Social History Date Type Detail Facility Start: 09-13-2021 Tobacco smoking status NHIS Ex-smoker (finding) [facility] Start: 1980 Sex Assigned At Female F [facility] Sex Assigned At Sex Assigned At Bir th [employer] Other Medical Equipment Procedure Code Equipment Code Equipment Original Text Equipment Identifier Dates Cervical total intervertebral disc prosthesis, modular [id number] Start: 09-13-2021 Goals Date Patient Goal Desired Activity /State Functional Status Date Assessment Result Facility 09-14-2021 Functional status Patient is Pro gressing Toward Baseline [facility] Work Phone: Mental Status Date Assessment Result Facility 09-14-2021 Cognitive function [facility] Patient is Progressing Toward Baseline [facility] Work Phone: Clinical Notes 03-19-2021 to 07-08-2022 Note Date & Type Note Facility 07-08-2022 Evaluation note Encounter Date Diagnosis Assessment Notes Jul, Cervical disc disorder at C6-C7 level with radiculopathy (ICD-10 - M50.123) I independently reviewed the plain x-ray of the cervical spine and compared to previous showing a well-placed artificial disc LDR with movement on flexion and extension. Jul, Carpal tunnel syndrome on right (ICD-10 - G56.01) The patient complains of numbness in her right hand involving the thumb index middle and part of the ring finger that tends to radiate up her arm and make her whole arm numb. It happens at night tending to wake her up multiple times and during the day when driving a car or holding the steering wheel. Clinical exam revealed that she had right carpal tunnel syndrome. I will send her for an EMG of the right upper extremity and urged her to get a splint. I will see her again in August for follow-up. [employer] Other 05-03-2022 Evaluation note* Encounter Date Diagnosis Assessment Notes Treatment Notes Treatment Clinical Notes December, Cervical disc disorder at C6-C7 level with radiculopathy (ICD-10 - M50.123) At this point the patient I think has an extensor tendinitis in the left forearm I will send her to orthopedics for treatment. I doubt this is a new radiculopathy. If the symptoms persist or something changes she knows she can come back and see me. The artificial disc has been again reevaluated with flexion-extension views which shows good location good placement and good motion. December, Tendinitis of left forearm (ICD-10 - M77.8) [employer] Other 03-08-2022 Evaluation note* Encounter Date Diagnosis Assessment Notes Treatment Notes Treatment Clinical Notes Oct, Cervical disc disorder at C6-C7 level with radiculopathy (ICD-10 - M50.123) At 30 days postop the patient has complete relief of arm pain voice is good swallowing good she is happy with her result. I have independently reviewed the plain x-ray showing good placement of the artificial disc. I shared this with the patient. I will see her again in 2 months with an x-ray. [employer] Other 12-30-2021 Evaluation note* Encounter Date Diagnosis Assessment Notes Treatment Notes Treatment Clinical Notes Jul, Cervical disc disorder at C6-C7 level with radiculopathy (ICD-10 - M50.123) This patient had at least 10 sessions of physical therapy with no improvement of pain or weakness of her left side. She has a cervical disc herniation C6-7 on the left with significant foraminal narrowing and slight cord impingement. I am recommending an anterior cervical discectomy with placement of an M6 artificial disc. I discussed with the patient the indication operation postop course alternatives and complications to include paralysis nerve damage incomplete relief of symptoms and infection. Also swallowing difficulties and hoarseness. Patient fully understands and would like to proceed with surgical intervention. She has significant left C7 pain and weakness. [employer] Other 12-14-2021 Evaluation note* Encounter Date Diagnosis Assessment Notes Treatment Notes Treatment Clinical Notes Jul, Contact with and (suspected) exposure to other viral communicable diseases (ICD-10 - Z20.828) Even though COVID RAPID test is NEGATIVE, I am highly suspicious at this time you may be positive due to the symptoms. Recommend patient follow Quarantine guidelines until you follow up with PCP.. Recommend OTC medication such as Mucinex, Sea salt nasal spray, Cepecol, Tylenol, Zyrtec, as they can help with symptoms VIRAL URI HANDOUT GIVEN TO PATIENT THAT RECOMMENDS OTC MEDICATIONS, FOLLOW UP AND WHEN TO SEEK EMERGENCY TREATMENT Jul, Other Additional time spent conducting pre-visit phone call, screening for symptoms, instructions on social distancing, application and removal of PPE, and cleaning of examination room, equipment and supplies was preformed. Patient education given for testing methodology and results. Patient care instructions given in writting by [facility] At Home document. [employer] Other 10-15-2021 Evaluation note* Encounter Date Diagnosis Assessment Notes Treatment Notes Treatment Clinical Notes May, Lumbar degenerative disc disease (ICD-10 - M51.36) 41 year old female presents with complaints of neck pain with numbness/tingling to the left upper extremity to the had. She also voices complaints of low back pain with numbness/tingling to the bilateral lower extremities to the ankles, more on the left. She states pain has been present for over 12 years but has significantly increased in the last year, with no known inciting trauma. She describes pain as a constant dull ache. She denies pain management or physical therapy, but notes rn medicare as well as massage therapy. Prior to examinng the patient, I reviewed progress notes from her referring provider, Dr woo. I also independently reviewed recent imaging of the lumbar spine and I agree with radiology interpretation. History, physical examination and available images are consistent with Lumbar DDD, Sacroiliitis and Lumbosacral Spondylosis. Anatomy of spine discussed in detail with patient in regards to patients condition. Patient is a candidate for a L5-S1 epidural steroid injection under fluoroscopic guidance. Risks and benefits of procedure explained to patient; patient verbalizes understanding. May, DDD (degenerative disc disease), cervical (ICD-10 - M50.30) In regards to her complaints of neck pain, I independently reviewed recent imaging of the cervical spine and I agree with radiology interpretation. If her pain persists we can consider proceeding with a cervical epidural steroid injection under fluoroscopic guidance in the future May, Lumbosacral spondylosis (ICD-10 - M47.817) If her pain persists or worsens, we can consider proceeding with a lumbar facet medial branch nerve block followed by a RFA if applicable in the future May, Sacroiliitis (ICD-10 - M46.1) In the future if the pain persists, we can consider proceeding with a sacroiliac joint injection under fluoroscopic guidance May, Cervical spondylosis (ICD-10 - M47.812) If her neck pain persists, we can consider proceeding with a cervical facet medial branch nerve block, followed by a RFA if applicable. May, Chronic pain (ICD-10 - G89.29) Continue medicaitons as prescribed May, Other Medical deci jr making shows a new problem to me with further workup planned or suggested with the potential for extensive treatment options that were considered with the most applicable given this patient's situation as noted above. Treatment options considered include a combination of physical therapy approaches, pharmacologic management, and interventional procedures. Those most applicable to the patient were discussed at this time. Risk of complications and/or morbidity and mortality is high given that acute and chronic pain poses a threat to life and bodily function if undertreated, poorly treated or with failure to maintain adequate treatment and timely followup. Given the serious and fluctuating nature of pain with extensive consideration for whenever pain changes, there always remains the possibility of prolonged functional impairment requiring constant patient reassessment and high-level medical decision making. The amount and complexity of data reviewed is high given that patient labs, radiology reports, and other test were obtained, reviewed and summarized as applicable from the physician portal and/or outside medical records. Pertinent positive and negative findings were considered in medical decision-making. [employer] Other 08-14-2021 NoteSend Summary: Discharge Summary Providers: Provider RoleProvider Name AttendingLuis Laurent Christopher Note Recipients: Migue Woo MD - [id number] [] Discharge: Summary: Admission Date: .19-Mar-2021 02:27:00 Discharge Date: 20-Mar-2021 Attending Physician at Discharge: Luis Laurent Admission Reason: Back pain(1) Final Discharge Diagnoses: 1. Acute on chronic back pain Procedures: none Condition at Discharge: Fair Disposition at Discharge: .Home Vital Signs: T PRBPSpO2 [id number]/6798% on RA Date/Time03/20 14:19814 14: 14: 14: 14:19 Range(35.8C - 36.7C ) (56 - 101 ) (18 - 18 ) (101 - 127 )/ (67 - 83 ) (93% - 98% ) Date: Weight/Scale Type:Height: 19-Mar-2021 19:0166 kg / hxiqanjv163.1 cm Physical Exam: General: Alert and oriented x 3. NAD. Skin: No rashes or ulcerations. HEENT: No tenderness, sclera white, no purulent drainage Cardiac: RRR S1/S2 Lungs: CTA. No wheezing, no crackles, no accessory muscle use at rest. Abdomen: Soft, non-tender, non-distended, BS + EXT: No lower extremity edema, pedal pulses 2 + bilateral. Musculoskeletal: Patient had increase pain with palpation to the paraspinal muscles and also direct palpation to the lumbar spine. Neurologic: No focal deficits. CN 2 - 12 intact. Psych: No agitation or delusions. 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 Pain was described as 10 out of 10 and patient was unable to ambulate. Patient was started on lidocaine patch, Flexeril 10 mg 3 times a day, IV Toradol 30 mg every 6 hours, IV Decadron 4 mg every 6 hours, oxycodone as needed for severe pain, IV Dilaudid 0.2 mg every 4 hours as needed for severe breakthrough pain. Initially in the morning patient had shown some improvement but after trying to get up patient was still having significant pain and could barely walk. Later on in the daytime after some more medications patient reported moderate improvement. Patient's pain is now 5 out of 10 and tolerable. Patient was able to get up and moved to the bathroom without severe pain and was able to remain functional. MRI of the spine done in the ER had shown moderate spinal stenosis of the cervical spine and only mild disc herniation of the L5-S1 area. No surgical intervention has been recommended. Patient is currently stable, pain is tolerable with current regimen, and patient has requested to go home. Patient does not want PT OT evaluation. Final diagnoses: Acute on chronic back pain -At this point likely musculoskeletal versus neuropathic from disc herniation. Patient has features of potentially both, but right now potentially favor more musculoskeletal. -We will discharge the patient home on pain regimen of lidocaine patch, ibuprofen as needed which she prefers to use, Flexeril as needed, Decadron taper, oxycodone as needed. She states that she also prefers to use aspirin or Tylenol. Patient recommended to follow-up with PCP outpatient and potentially consider pain management. Patient agreeable to [facility] service to make pain management consult. -Patient advised to stay off of work for a week and also to take it easy at home. Discharge Information: and Continuing Care: Lab Results - Pending: None Radiology Results - Pending: None Discharge Instructions: Activity: activity as tolerated. Nutrition/Diet: regular Follow Up Appointments: Follow-Up Appointment 01: Physician/Dept/Service: Migue Woo Call to Schedule in: 1 week Follow-Up Appointment 02: Physician/Dept/Service: Pain management Call to Schedule in: 2 weeks Discharge Medications: Home Medication lidocaine 5% topical film - Apply topically to affected area once a day to back for pain dexamethasone 2 mg oral tablet - 3 tab(s) orally 2 times a day for 2 days, then 2 tabs for 2 days, then 1 tab for 2 days, then stop. PRN Medication ibuprofen 800 mg oral tablet - 1 tab(s) orally every 8 hours, As Needed for mild to moderate pain oxyCODONE 5 mg oral tablet - 1 tab(s) orally every 4 hours, As needed, severe pain. ICD 10 code M54.9 Back Pain cyclobenzaprine 10 mg oral tablet - 1 tab(s) orally 3 times a day, As Needed for muslce pain Electronic Signatures: Luis Laurent) (Signed 20-Mar-2021 17:46) Authored: Send Summary, Summary Content, Ongoing Care, Note Completion Last Updated: 20-Mar-2021 17:46 by Luis Laurent) References: 1. Data Referenced From History and Physical 19-Mar-2021 15:43[facility]08-13-2021 NoteHistory of Present Illness: /Lactating: Are You no (1) Are You Currently Breastfeedingno (1) Admission Reason: Back pain HPI: ARABELLA THORNTON is a 41 year old Female with history of herniated disks presents to the emergency room for severe back pain unable to ambulate. Patient was gardening yesterday before coming to work. Upon arriving to work she had severe intractable back pain. Patient was brought to the emergency department. Patient does have a history of herniated disks. She denies any saddle paresthesias or bowel/bladder issues. She denies fever, chills, headache, dizziness, double vision, chest pain, shortness of breath, abdominal pain, nausea, vomiting, diarrhea, hematochezia, hematemesis, and melena stools. She states that the pain is in her lower back. She described the pain as a stabbing constant pain with no radiation. She states the pain is 10 out of 10. She states nothing makes it better or worse. In the past she has used Lidoderm, Flexeril, Percocet, rest, ice, and chiropractor. ED course: Patient's vital signs have remained stable throughout her stay in the emergency department. While in the emergency department she received medications of Valium, Dilaudid 1 mg x 2, Toradol, Lidoderm patch, Ativan, morphine sulfate, and Zofran. Laboratory studies included a BMP and CBC. Imaging included an MRI of the C-spine, thoracic spine, and lumbar spine. The cervical spine demonstrates moderate spinal canal stenosis at the level of C5-C6 and C6-C7The T-spine MRI showed no significant spinal canal or neural foramina stenosis. Between L5 and S1 there was some small disc bulging in osteophytic spurring. Patient will be admitted to the general internal medicine team for PT and OT evaluation and pain management. Past medical history: Herniated disks. Past surgical history: Deviated septum, disc surgery Family history: Noncontributory Social history: Patient currently resides at home with her . She denies use of any assist devices in or out of the home. She denies any smoking. She reports occasionally consuming alcoholic beverages. She denies illicit drug use. She also reports no recent travel. Review of systems: A 14 point review of systems was completed and is negative except for the specifically named in my HPI. Allergies: No Known Allergies: Medications Prior to Admission: Outpatient Meds have not been reviewed. Objective: Objective Information: T PRBPSpO2 [id number]/7898% Date/Time03/19 2:32813 11: 10:198/13 11:008 10:19 Range(36.2C - 36.2C ) (53 - 86 ) (14 - 18 ) (117 - 158 )/ (78 - 102 ) (94% - 100% ) T PRBPSpO2 Value36.12282385/7898% Date/Time03/19 2:328 11: 10:198 11: 10:19 Range(36.2C - 36.2C ) (53 - 86 ) (14 - 18 ) (117 - 158 )/ (78 - 102 ) (94% - 100% ) Physical Exam by System: Constitutional: Well-developed female. Patient is supine in bed with head elevated. Patient is not ill appearing Eyes: Conjunctiva is pink, sclerae shows no sign of infection or jaundice. PERRLA ENMT: Ears: Nasal pharynx mucosa is pink and moist. Posterior oropharynx is without lesions or exudate. Head/Neck: Neck is supple, no apparent injury, thyroid without mass or tenderness, No JVD, Trachea is midline, No Bruits Respiratory/Thorax: Lungs are clear bilaterally no advantageous sounds noted. Good chest expansion, thorax symmetrical Cardiovascular: Regular rate and rhythm noted. S1 and S2 no rubs, clicks, or gallops noted. 2+ equal peripheral pulses in all extremities Gastrointestinal: Non-distended, No Pain on palpation. Bowel sounds are normal. No hepatosplenomegaly noted. Patient is negative for rebound tenderness in all quadrants. No Bruits Musculoskeletal: No Weaknesses ROM intact. Normal extremities, no cyanosis, edema, contusions, or wounds, or clubbing Extremities: normal extremities, no cyanosis edema, contusions or wounds, no clubbing Neurological: Awake, Alert, and Oriented x3. GCS 15, No Focal Deficits, Symmetric strength 5/5 in the upper and lower extremities bilaterally Psychological: Mood and thoughts are appropriate. No evidence of disordered thinking noted. Skin: Skin is warm and dry, no lesions, no rashes Medications: Medications: Continuous Medications No continuous medications are active Scheduled Medications 1. Cyclobenzaprine: 10 mg Oral 3 Times a Day 2. Lidocaine 5% TransDermal: 1 patch TransDermal Every 24 Hours PRN Medications 1. Acetaminophen: 975 mg Oral Every 8 Hours 2. HYDROmorphone Injectable: 0.2 mg IntraVenous Push Every 4 Hours 3. oxyCODONE Immediate Release: 5 mg Oral Every 6 Hours Recent Lab Results: Results: CBC: 03/19/2021 09:45 \ Hgb / \ 12.6 / WBC Plt 4.7 -------- (more content not included)...[facility]08-13-2021 History general Narrative - Reported* Type Description Date Medical History back pain Surgical History nasal surgery Surgical History tonsillectomy Hospitalization History back pain 03/19/21 [facility] [employer] Other Evaluation note* Diagnosis Onset Date Resolution Status Cervical disc disorder at C6-C7 level with radiculopat hy acute [facility] Work Phone: [facility]No [facility] [employer] Other Evaluation noteNo assessment information available [facility] Work Phone: [facility] Work Phone: Summary Purpose Family History No Family History Records Found Relationship Condition Age at Onset Recorded Date/T melvi father Hyperlipidemia Unknown brother Hyperlipidemia Unknown Not Specified Cyst of ovary Unknown History of partial hysterectomy Unknown sister Cyst of ovary Unknown Advance Directives No Advanced Directives Records Found Advance Directive Response Recorded Date/ Time Advance Directives No July 07, 2021 11:34am Chief Complaint and Reason for Visit Chief Complaint Radiculopathy M47.812 M47.812 Reason for Visit Cervical disc disord er at C6-C7 level with radiculopathy Chief Complaint see order(s) Reason for Referral Reason EMG/NCV RUE Diagnosis 1 Carpal tunnel syndro me on right (G56.01) Referral Organization [facility] Referring Provider First Name Juan David Referring Provider Last Name Damon Referring Provider Specialty Neurologica l Surgery Referred Organization [facility] Referred Provider SrinathKiran Referred Address [address] [facility], [place],[address] Referred Provider Specialty Neurology Referral Priority Routine Reason *FU 12/14 Evaluate and Treat Left Forearm Extensor Tendinitis Diagnosis 1 Tendinitis of left f orearm (M77.8) Referral Organization [facility] Referring Provider First Name Juan David Referring Provider Last Name Damon Referring Provider Specialty Neurologica l Surgery Referred Organization [facility] Referred Provider Neto Martin Jr Referred Address ,[place], [place],[address] Referred Provider Specialty Orthopedic S urgery Referral Priority Routine General Notes Fore, Leonora M 022 12:15:09 PM >Received and sent P2P today Additional Source Comments INFORMATION SOURCE (unrecogn ized section and content) DATE CREATED AUTHOR 01/14/2021 [facility] DATE CREATED AUTHOR AUTHOR'S ORGANIZ ATION 04/26/2021 [facility] DATE CREATED AUTHOR AUTHOR'S ORGANIZ ATION [facility]/20/2021 [facility] DATE CREATED AUTHOR AUTHOR'S ORGANIZ ATION 03/06/2023 [facility] Care Teams (unrecognized sec tion and content) Team Status: Inactive Member Role Status Dates Migue Woo , DO Primary Care Provider, Attending Tonja munoz Active Team Status: Active Member Role Status Dates Migue Woo , DO Primary Care Provider Active Team Status: Inactive Member Role Status Dates Migue Woo , DO Primary Care Provider Active Juan David Jose MD Attending Provider Active Team Status: Inactive Member Role Status Dates Migue Woo , DO Primary Care Provider Active Je Maradiaga MD Attending Provider Active REASON FOR VISIT (unrecogniz ed section and content) REF BY DR WOO FOR CERVIC AL AND LUMBAR STENOSISL5-S1 EPIDURAL STEROID INJ/ELf/u after PT#14 BLACK TRUCK, SX 3 DAYS, NO TASTEarthroplasty C6-74 wk po/ arthroplasty C6-7/--2021/xray3 months po Artificial discarm numbness Goals (unrecognized section and content) Goals may be documented in a n alternate section FOR RECORDS PERTAINING TO PATIENTS WHO ARE OR HAVE BEEN ENROLLED IN A CHEMICAL DEPENDENCY/SUBSTANCEABUSE PROGRAM, SOME INFORMATION MAY BE OMITTED. This clinical summary was aggregated from multiple sources. Caution should be exercised in using it in the provision of clinical care. This summary normalizes information from multiple sources, and as a consequence, information in this document may materially change the coding, format and clinical context of patient data. In addition, data may be omitted in some cases. CLINICAL DECISIONS SHOULD BE BASED ON THE PRIMARY CLINICAL RECORDS. [facility] [employer] [facility] provides no warranty or guarantee of the accuracy or completeness of information in this document.
== END 2023-09-11 09:00 | disposition home or self-care (01) ==
LOC: RAD 09:00
PROVIDERS: PCP Nurse Practitioner Family; Visit Provider Orthopaedic Surgery
DX: S62.364D Nondisplaced fracture of neck of fourth metacarpal bone, right hand, subsequent encounter for fracture with routine healing (principal)
CPT/HCPCS: 73130

== ENCOUNTER 2023-11-13 19:36 | Observation (INO) | payer BC, SELFPAY ==
[2023-11-13 19:43] VITALS: BP 131/70; PULSE 97; TEMP 36.6; O2SAT 97; BMI 22.3
--- OUTSIDE RECORDS SUMMARY | 2023-11-13 19:43 | XMS_ITS | CCD ---
Author Organization [facility] Care Team Providers Care Lighting Engineering Technician Name Role Phone RUFINAC, DR LANDIN Attending Unavailable MISMatilda, DR LANDIN Admitting Unavailable CARLY NGUYEN Admitting Unavailable CARLY NGUYEN Consulting Unavailable CARLY NGUYEN Attending Unavailable Bunting, DO [place] Primary Care Provider MD Juan David Jose Attending Provider [phone] MD Je Maradiaga Attending Provider [phone] Ever Apple Unavailable Juan David Jose Unavailable Carly Nguyen Unavailable Bunting, DO [place] Primary Care Provider Bunting, DO Migue Attending Provider [phone] Bunting, Migue Primary Care Unavailable Bunting, Migue [...] n 03-01-2023 MM screening mammo BI w/CAD [facility] [address] [place] [id number] Mammography Report Signed Patient: Arabella Thornton MR#: [id number] : 1980 Acct:[id number] Age/Sex: 42 / F ADM Date: 03/01/23 Loc: ID Room: Type: [facility] Attending Dr: Migue Woo DO Copies to: [...] mammogram. Impression dictated by: Raghu Graves Jr., D.OChelle03/01/2023 3:00 PM Dictation Location: [facility] Transcribed By: [facility] 03/01/23 1500 Dictated By: Raghu Graves Jr, DO 03/01/23 1500 Signed By: 03/01/23 1500 Normal [facility] XR cerv spine AP/LAT/FLX/EXT on 07-06-2022 XR cerv spine AP/LAT/FLX/EXT [address] [address] XRay Report Signed Patient: Arabella Thornton MR#: [id number] : 1980 Acct:[id number] Age/Sex: 42 / F ADM Date: 07/06/22 Loc: XD Room: Type: [facility] Attending Dr: Juan David Jose MD Copies [...] Adelina Wheeler M.D.07/06/2022 3:49 PM Dictation Location: [place] [address] Transcribed By: [facility] 07/06/22 1549 Dictated By: Adelina Wheeler MD 07/06/22 1547 Signed By: 07/06/22 1549 [facility] Albumin [Mass/volume] in Ser um or PlasmaOrdered By: Migue Woo on 05-11-2022 Albumin [Mass/Vol] 3.9 g/dL 3.2-5.5 [facility] Cholesterol [Mass/volume] in Serum or PlasmaOrdered By: Migue Woo on 05-11-2022 Cholesterol [Mass/Vol] 164 mg/dL 140-200 [facility] Comment on above: Chol less than 200 m g/dl low riskChol 201-239 mg/dl borderline riskChol 240 mg/dl and greater high risk Cholesterol in LDL Calc [Mas s/Vol]Ordered By: Migue Woo on 05-11-2022 Cholesterol in LDL [Mass/Vol] 92 mg/dL 0-100 [facility] Comment on above: LDL ATP III CLASSIFI CATIONLDL less than 100 mg/dL OptimalLDL 100-129 mg/dL Near or above optimalLDL 130-159 mg/dL Borderline highLDL 160-189 mg/dL HighLDL greater than 189 mg/dL Very high Cholesterol in VLDL Calc [Ma ss/Vol]Ordered By: Migue Woo on 05-11-2022 Cholesterol in VLDL [Mass/Vol] 9 mg/dL [facility] Comprehensive Metabolic Pane dora 05-11-2022 Albumin [Mass/Vol] 3.9 g/dL Normal 3.2-5.5 [facility] Comment on above: Performed By: #### C MP, LIPID #### [facility] [address] Albumin/Globulin [Mass ratio] 1.6 {ratio} Normal [facility] Comment on above: Performed By: #### C MP, LIPID #### [facility] [address] ALP [Catalytic activity/Vol] 68 U/L Normal 32-92 [facility] Comment on above: Performed By: #### C MP, LIPID #### [facility] [address] ALT [Catalytic activity/Vol] 12 U/L Normal 10-60 [facility] Comment on above: Performed By: #### C MP, LIPID #### [facility] [address] [place] [address] [place] Anion gap [Moles/Vol] 11.5 mmol/L Normal 6.0-15.0 [facility] Comment on above: Performed By: #### C MP, LIPID #### [facility] [address] AST [Catalytic activity/Vol] 14 U/L Normal 10-42 [facility] Comment on above: Performed By: #### C MP, LIPID #### [facility] [address] [place] [address] [place] Bilirubin [Mass/Vol] 0.5 mg/dL Normal 0.3-1.2 [facility] Comment on above: Performed By: #### C MP, LIPID #### [facility] [address] Calcium [Mass/Vol] 8.6 mg/dL Normal 8.2-10.2 [facility] Comment on above: Performed By: #### C MP, LIPID #### [facility] [address] Chloride [Moles/Vol] 102 mmol/L Normal 95-114 [facility] Comment on above: Performed By: #### C MP, LIPID #### [facility] [address] [place] [address] CO2 [Moles/Vol] 25.3 mmol/L Normal 22.0-30.0 [facility] Comment on above: Performed By: #### C MP, LIPID #### [address] Creatinine [Mass/Vol] 0.65 mg/dL Normal 0.44-1.[address] [facility] Comment on above: Performed By: #### C MP, LIPID #### [address] Estimated GFR ( Jessica > 60 [facility] Comment on above: Result Comment: GFR estimated reference range: According to KDOQI guidelines, <60 ml/min/1.73m2 is sufficient to diagnose a patient with chronic kidney disease. Performed By: #### C MP, LIPID #### [place] [address] [place] Estimated GFR (Non- Am > 60 Normal [facility] Comment on above: Performed By: #### C MP, LIPID #### [facility] [address] [place] [address] [place] Globulin (S) [Mass/Vol] 2.5 g/dL [facility] Comment on above: Performed By: #### C MP, LIPID #### [facility] [address] [place] [address] [place] Glucose [Mass/Vol] 95 mg/dL Normal 70-100 [facility] Comment on above: Result Comment: [place] Glucose Reference Range is dependent on time and content of last meal. Glucose of more than 200 mg/dL in a nonstressed, ambulatory subject supports the diagnosis of Diabetes Mellitus. ADA recommended reference range Performed By: #### C MP, LIPID #### [facility] [address] [place] [address] [place] Potassium [Moles/Vol] 3.8 mmol/L Normal 3.5-5.[address] [facility] Comment on above: Performed By: #### C MP, LIPID #### [facility] [address] [place] [address] [place] Protein [Mass/Vol] 6.4 g/dL Normal 6.1-7.9 [facility] Comment on above: Performed By: #### C MP, LIPID #### [facility] [address] [place] [address] [place] Sodium [Moles/Vol] 135 mmol/L Low 136-146 [facility] Comment on above: Performed By: #### C MP, LIPID #### [facility] [address] [place] [address] [place] Urea nitrogen [Mass/Vol] 5 mg/dL Low 9-23 [facility] Comment on above: Performed By: #### C MP, LIPID #### [facility] [address] [place] [address] [place] Creatinine and Glomerular fi ltration rate.predicted panel (S/P/Bld)Ordered By: Migue Woo on 05-11-2022 Creatinine [Mass/Vol] 0.65 mg/dL 0.44-1.[address] [facility] Estimated glomerular filtrat ion rate (GFR) non- AmericanOrdered By: Migeu Woo on 05-11-2022 GFR/1.73 sq M.predicted among non-blacks MDRD (S/P/Bld) [Vol rate/Area] > 60 mL/Min [facility] Globulin Calc (S) [Mass/Vol] Ordered By: Migue Woo on 05-11-2022 Globulin (S) [Mass/Vol] 2.5 g/dL [facility] Lipid Panelon 05-11-2022 Cholesterol [Mass/Vol] 164 mg/dL Normal 140-200 [facility] Comment on above: Result Comment: Chol less than 200 mg/dl low risk Chol 201-239 mg/dl borderline risk Chol 240 mg/dl and greater high risk Performed By: #### C MP, LIPID #### [facility] [address] Cholesterol in HDL [Mass/Vol] 62 mg/dL Normal 35-85 [facility] Comment on above: Result Comment: HDL CHOL ATP-III CLASSIFICATION Cardiovascular Risk HDL > or equal to 60 mg/dL LOW HDL < 40 mg/dL HIGH Performed By: #### C MP, LIPID #### [facility] [address] Cholesterol.total/Chol esterol in HDL [Mass ratio] 2.6 {ratio} Normal <5.0 [facility] Comment on above: Result Comment: PERF ORMED BY: [place] [address] PATHOLOGIST NON[employer] ANIMAL CARETAKER COLLEEN HEARN M.D. Performed By: #### C MP, LIPID #### [address] LDL Cholesterol,Calculated 92 mg/dL Normal 0-100 [facility] Comment on above: Result Comment: LDL ATP III CLASSIFICATION LDL less than 100 mg/dL Optimal LDL 100-129 mg/dL Near or above optimal LDL 130-159 mg/dL Borderline high LDL 160-189 mg/dL High LDL greater than 189 mg/dL Very high Performed By: #### C MP, LIPID #### [facility] [address] [place] [address] [place] Triglyceride w/Reflex 49 mg/dL Normal 35-[address] [facility] Comment on above: Result Comment: TRIG ATP III CLASSIFICATION TRIG less than 150 mg/dL Normal TRIG 150-199 mg/dL Borderline high TRIG 200-500 mg/dL High TRIG greater than 500 mg/dL Very high Standard traceable to the Center for Disease Conrtrol and Prevention (CDC) test method. Performed By: #### C MP, LIPID #### [facility] [address] VLDL CHOLESTEROL 9 mg/dL Normal [facility] Comment on above: Performed By: #### C MP, LIPID #### [facility] [address] No Panel InformationOrdered By: Migue Woo on 05-11-2022 Estimated GFR () > 60 mL/Min [facility] Comment on above: GFR estimated refere nce range: According to KDOQI guidelines, <60 ml/min/1.73m2 is sufficient to diagnose a patient with chronic kidney disease. Pharmacy Creatinine Clearance (Chem N/A [facility] Protein [Mass/volume] in Ser um or PlasmaOrdered By: Migue Woo on 05-11-2022 Protein [Mass/Vol] 6.4 g/dL 6.1-7.9 [facility] Serum or plasma alanine bolivar otransferase measurement without P-5'-P (enzymatic activiOrdered By: Migue Woo on 05-11-2022 ALT No additional P-5'-P [Catalytic activity/Vol] 12 U/L [facility] Serum or plasma albumin/glob ulin mass ratioOrdered By: Migue Woo on 05-11-2022 Albumin/Globulin [Mass ratio] 1.6 {ratio} [facility] Serum or plasma alkaline nataliia sphatase measurement (enzymatic activity/volume)Ordered By: Migue Woo on 05-11-2022 ALP [Catalytic activity/Vol] 68 U/L 3292 [facility] Serum or plasma anion gap de terminationOrdered By: Migue Woo on 05-11-2022 Anion gap [Moles/Vol] 11.5 mmol/L 6.0-15.0 [facility] Serum or plasma aspartate am inotransferase measurement (enzymatic activity/volume)Ordered By: Migue Bunnayeli on 05-11-2022 AST [Catalytic activity/Vol] 14 U/L [facility] Serum or plasma calcium attila urement (mass/volume)Ordered By: Migue Woo on 05-11-2022 Calcium [Mass/Vol] 8.6 mg/dL 8.2-10.2 [facility] Serum or plasma chloride beba surement (moles/volume)Ordered By: Migue Woo on 05-11-2022 Chloride [Moles/Vol] 102 mmol/L 95-114 [facility] Serum or plasma glucose attila urement (mass/volume)Ordered By: Migue Woo on 05-11-2022 Glucose [Mass/Vol] 95 mg/dL 70-100 [facility] Comment on above: ADA recommended refe rence rangeRandom Glucose Reference Range is dependent on time and content of last meal. Glucose of more than 200 mg/dL in a nonstressed, ambulatory subject supports the diagnosis of Diabetes Mellitus. Serum or plasma high density lipoprotein (HDL) cholesterol measurementOrdered By: Migue Woo on 05-11-2022 Cholesterol in HDL [Mass/Vol] 62 mg/dL 35-85 [facility] Comment on above: HDL CHOL ATP-III CLA SSIFICATION Cardiovascular RiskHDL > or equal to 60 mg/dL LOWHDL < 40 mg/dL HIGH Serum or plasma potassium me asurement (moles/volume)Ordered By: Migue Woo on 05-11-2022 Potassium [Moles/Vol] 3.8 mmol/L 3.5-5.[address] [facility] Serum or plasma sodium measu rement (moles/volume)Ordered By: Migue Woo on 05-11-2022 Sodium [Moles/Vol] 135 mmol/L 136-146 [facility] Serum or plasma total biliru bin measurement (mass/volume)Ordered By: Migue Woo on 05-11-2022 Bilirubin [Mass/Vol] 0.5 mg/dL 0.3-1.2 [facility] Serum or plasma total carbon dioxide measurement (moles/volume)Ordered By: Migue Woo on 05-11-2022 CO2 [Moles/Vol] 25.3 mmol/L 22.0-30.0 [facility] Serum or plasma total choles terol/high density lipoprotein (HDL) cholesterol mass ratOrdered By: Migue Woo on 05-11-2022 Cholesterol.total/Chol esterol in HDL [Mass ratio] 2.6 {ratio} <5.0 [facility] Serum or plasma urea nitroge n measurement (mass/volume)Ordered By: Migue Woo on 05-11-2022 Urea nitrogen [Mass/Vol] 5 mg/dL 9-23 [facility] Triglyceride [Mass/volume] i n Serum or PlasmaOrdered By: Migue Woo on 05-11-2022 Triglyceride [Mass/Vol] 49 mg/dL 35-149 [facility] Comment on above: TRIG ATP III CLASSIF ICATIONTRIG less than 150 mg/dL NormalTRIG 150-199 mg/dL Borderline highTRIG 200-500 mg/dL High TRIG greater than 500 mg/dL Very highStandard traceable to the Center for Disease Conrtrol and Prevention (CDC) test method. HCG ( test) IA.rapi d Ql (U)Ordered By: Allan Wills on 09-13-2021 HCG ( test) Ql (U) Negative [facility] COVID Quick Testingon 2020 Result Negative [employer] Other Covid-19 PCR ([facility])on 07-07 SARS-CoV-2 (COVID-19) RNA JUN+probe Ql (Unsp spec) Detected Critically abnormal NOT DETECTED [facility] Comment on above: Result Comment: This test is not yet approved or cleared by the [place] FDA. When there are no FDA-approved or cleared tests available, and other criteria are met, FDA can make tests available under an emergency access mechanism called an Emergency Use Authorization (EUA). The EUA for this test is supported by the Foot Gatherer of Health and Human Service's (HHS's) declaration [...] used). Performed By: #### C VDTB #### [facility] [address] [place] [address] [address] Alejandra Sherman Discharge [id number] Discharge Profile2 Discharge Orders: Anticipated Discharge Date: Anticipated Discharge [id number] Anticipated Discharge Time16:54 Hospital Providers: Provider RoleProvider Name AttendingLuis Laurent Christopher DNAR: DNAR Status: none Activity: activity as tolerated. Diet: Dietregular Provider FINAL REVIEW of Orders: Final Review: Final Review of Medication Reconciliation and Orders Completedby Physician Reviewing ProviderLuis Laurent MD at 20-Mar-2021 16:56:00 Appointments: Follow-Up Appointment 01: Physician/Dept/ServiceDr Chelle Woo PCP Phone [phone] CommentsConcierge service to make appointment Order received after discharge Reached out to patient lvm & sent letter Follow-Up Appointment 02: Physician/Dept/Service Pain management Phone [phone] CommentsConcierge service to make appointment Order received after discharge Reached out to patient lvm & sent letter Electronic Signatures: Alice Horta (PT SVS REP) (Signed 22-Mar-2021 11:54) Authored: Appointments Luis Laurent) (Signed 20-Mar-2021 16:56) Authored: Discharge Orders, Provider FINAL REVIEW of Orders, Appointments, Gold Form - Newswriter Summary Last Updated: 22-Mar-2021 11:54 by Alice Horta (PT SVS REP) [facility] Order Reconciliationon 03-20 Order Reconciliation Page 1 [...] 10 mg Oral 3 Times a Day 19-Mar-2021 15:43 cyclobenzaprine 10 mg oral tablet 1 [...] ICD 10 code M54.9, Back Pain Normal [facility] Admission Risk Screen - Adul ton [...] AlertFor Ebola-like Symptoms: Isolate Patient and Notify Provider/Solvent Plant Treater For Contact: Notify Provider/Solvent Plant Treater Advance Directive: Advance Directive/DNRno (1) Advance Directive [...] any thoughts of harming anyone elseno (2) [place] Suicide: Risk Screen Not Applicable/Able to Answerable to be screened In the Past Month: Have you wished you were or could go to sleep and not wake upno(2) In the Past Month: Have you had any actual thoughts of killing yourself no(2) Lifetime: Have you ever done, started to do, or prepared to do anything to end your lifeno [place] Suicide Risknegative Adult Nutrition Screen: Have you [...] Spiritual Screen: Are there any cultural, spiritual, worship practices/values/needs that are important for us to knowno CAGE: Is this an injured patient at a Trauma Center ([facility]/[place] /[place]): yes (1) C: Have you ever felt you needed to Cut down on your drinking: no (1) A: Have people Annoyed you by criticizing your drinking: no (1) G: Have you ever felt Guilty about drinking: no (1) E: Have you ever felt you needed a drink first thing in the morning (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 Immunocompetent persons with underlying chronic conditions or reside in superintendent marine oil terminal care facilitiesnone of these conditions Persons with Functional or Anatomic Asplenianone of these conditions Immunocompromised Personsnone of these conditions Pneumonia vaccine NOT indicated due to:patient DOES NOT have a condition that indicates vaccination patient/caregiver refusal at this time Kervin (more content not included)... Normal [facility] BASIC METABOLIC PANELon 03-07 Anion gap [Moles/Vol] 19 mmol/L Normal 10 - 20 [facility] Comment on above: Performed By: #### B MP ####[id number] [place] [address] Calcium [Mass/Vol] 10.0 mg/dL Normal 8.6 - 10.6 [facility] Comment on above: Performed By: #### B MP ####[id number] [place] [address] Chloride [Moles/Vol] 99 mmol/L Normal 98 - 107 [facility] Comment on above: Performed By: #### B MP ####[id number] [place] [address] Creatinine [Mass/Vol] 0.71 mg/dL Normal 0.50 - 1.05 [facility] Comment on above: Performed By: #### B MP ####[id number] [place] [address] GFR- AM. >60 Normal >60 [facility] Comment on above: Result Comment: CALC ULATIONS OF ESTIMATED GFR ARE PERFORMED USING THE MDRD STUDY EQUATION FOR THE IDMS-TRACEABLE CREATININE METHODS. CLIN CHEM 2007;53:766-72 Performed By: #### B MP ####[id number] [place] [address] GFR-NON AM. >60 Normal >60 [facility] Comment on above: Performed By: #### B MP ####[id number] [place] [address] Glucose [Mass/Vol] 85 mg/dL Normal 74 - 99 [facility] Comment on above: Performed By: #### B MP ####[id number] [place] [address] HCO3 (Bld) [Moles/Vol] 23 mmol/L Normal 21 - 32 [facility] Comment on above: Performed By: #### B MP ####[id number] [place] [address] Potassium [Moles/Vol] 3.3 mmol/L Low 3.5 - 5.3 [facility] Comment on above: Performed By: #### B MP ####[id number] [place] [address] Sodium [Moles/Vol] 138 mmol/L Normal 136 - 145 [facility] Comment on above: Performed By: #### B MP ####[id number] [place] [address] Urea nitrogen [Mass/Vol] 7 mg/dL Normal 6 - 23 [facility] Comment on above: Performed By: #### B MP ####[id number] [place] [address] CBC AND DIFFERENTIALon 03-19 % AUTOMATED IMMATURE GRAN 0.2 % Normal 0.0 - 0.9 [facility] Comment on above: Result Comment: Leslie ture Granulocyte Count (IG) includes promyelocytes, myelocytes and metamyelocytes but does not include bands. Percent differential counts (%) should be interpreted in the context of the absolute cell counts (cells/L). Performed By: #### C BCDF ####[id number] [place] [address] Basophils (Bld) [#/Vol] 0.03 10*3/uL Normal 0.00 - 0.10 [facility] Comment on above: Performed By: #### C BCDF ####[id number] [place] [address] Basophils/100 WBC (Bld) 0.6 % Normal 0.0 - 2.0 [facility] Comment on above: Performed By: #### C BCDF ####[id number] [place] [address] Eosinophils (Bld) [#/Vol] 0.06 10*3/uL Normal 0.00 - 0.70 [facility] Comment on above: Performed By: #### C BCDF ####[id number] [place] [address] Eosinophils/100 WBC (Bld) 1.3 % Normal 0.0 - 6.0 [facility] Comment on above: Performed By: #### C BCDF ####[id number] [place] [address] Erythrocyte distribution width (RBC) [Ratio] 12.7 % Normal 11.5 - 14.5 [facility] Comment on above: Performed By: #### C BCDF ####[id number] [place] [address] Hematocrit (Bld) [Volume fraction] 37.0 % Normal 36.0 - 46.0 [facility] Comment on above: Performed By: #### C BCDF ####[id number] [place] [address] Hemoglobin (Bld) [Mass/Vol] 12.6 g/dL Normal 12.0 - 16.0 [facility] Comment on above: Performed By: #### C BCDF ####[id number] [place] [address] Lymphocytes (Bld) [#/Vol] 1.16 10*3/uL Low 1.20 - 4.80 [facility] Comment on above: Performed By: #### C BCDF ####[id number] [place] [address] Lymphocytes/100 WBC (Bld) 24.8 % Normal 13.0 - 44.0 [facility] Comment on above: Performed By: #### C BCDF ####[id number] [place] [address] MCHC (RBC) [Mass/Vol] 34.1 g/dL Normal 32.0 - 36.0 [facility] Comment on above: Performed By: #### C BCDF ####[id number] [place] [address] MCV (RBC) [Entitic vol] 100 fL Normal 80 - 100 [facility] Comment on above: Performed By: #### C BCDF ####[id number] [place] [address] Monocytes (Bld) [#/Vol] 0.46 10*3/uL Normal 0.10 - 1.00 [facility] Comment on above: Performed By: #### C BCDF ####[id number] [place] [address] Monocytes/100 WBC (Bld) 9.8 % Normal 2.0 - 10.0 [facility] Comment on above: Performed By: #### C BCDF ####[id number] [place] [address] Neutrophils (Bld) [#/Vol] 2.96 10*3/uL Normal 1.20 - 7.70 [facility] Comment on above: Performed By: #### C BCDF ####[id number] [place] [address] Neutrophils/100 WBC (Bld) 63.3 % Normal 40.0 - 80.0 [facility] Comment on above: Performed By: #### C BCDF ####[id number] [place] [address] NUCLEATED RBC 0.0 /100 WBC Normal 0.0-0.0 [facility] Comment on above: Performed By: #### C BCDF ####[id number] [place] [address] Platelets (Bld) [#/Vol] 333 10*3/uL Normal 150 - 450 [facility] Comment on above: Performed By: #### C BCDF ####[id number] [place] [address] RBC 3.69 x10E12/L Low 4.00 - 5.20 [facility] Comment on above: Performed By: #### C BCDF ####[id number] [place] [address] WBC (Bld) [#/Vol] 4.7 10*3/uL Normal 4.4 - 11.3 [facility] Comment on above: Performed By: #### C BCDF ####[id number] [place] [address] CORONAVIRUS 2019, SCREEN ASY MPTOMATICon 08-13-2021 SARS-CoV-2 (COVID-19) RNA JUN+probe Ql (Unsp spec) Not detected Normal Not Detected [facility] Comment on above: Result Comment: . This test has received FDA Emergency Use Authorization (EUA) and has been verified by [facility] ([facility]). This test is only authorized for the duration of time that circumstances exist to justify the authorization of the emergency use of in vitro diagnostic tests for the detection of SARS-CoV-2 virus and/or diagnosis of COVID-19 infection under section 564(b)(1) of the Act, 21 U.S.C. 360bbb-3(b)(1), unless the authorization is terminated or revoked sooner. [facility] is certified under CLIA-88 as qualified to perform high complexity testing. Testing is performed in the [facility] located at [address] [place] [address]. SARS-CoV-2/Flu/RSV Multiplex Test: Fact sheet for providers: https://www.fda.gov/media/082776/download Fact sheet for patients: https://www.fda.gov/media/622802/download Performed By: #### C [facility] #### [address] [place] [address] Lab Specimen Source Nasal, Nasopharyngeal [facility] Comment on above: Performed By: #### C [facility] #### [address] 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 Please contact respective team for any questions/concerns Ortho Spine team: Sav Rodriguez, PGY-2 - [id number] Axel Wong, PGY-3 - Miguel A Cornell, PGY-4 - [id number] Attestation: Note Completion: I am a: Resident/Fellow [...] the following: I personally evaluated the patient [id number] Comments/ Additional Findings As noted She does [...] Screen - Adult Emergency 19-Mar-2021 07:32 [facility] Covid 19 Resultson 1 SARS-CoV-2 (COVID-19) [...] You may also be contacted by the [facility] to see if any of your close [...] or Naproxen (Aleve) can also be used. Jymm-myy-khfgney cough and cold medicines can be used according to the instructions on the package. Some krov-qgf-hrdlciv medicines also contain acetaminophen. Make sure you [...] water are not available, use alcohol-based hand content publisher. Avoid touching your eyes, nose, and mouth [...] 24 merritt (more content not included)... [facility] NR MRI CERVICAL WOon 021 NR MRI CERVICAL WO Patient Name: ARABELLA THORNTON STUDY: MRI CERVICAL WO; 03/19/2021 1:00 pm INDICATION: Partially visualized degenerative changes on T spine MRI. COMPARISON: Thoracic spine MRI, same day ACCESSION NUMBER(S): [id number] ORDERING CLINICIAN: DAYDAY BETTS TECHNIQUE: Sagittal T1, [...] signed by: ZAC CHIN MD, PHD [facility] NR MRI L-SPINE WOon 03-19-20 21 NR MRI L-SPINE WO Patient Name: NORBERTO, ARABELLA STUDY: MRI T-SPINE WO; MRI L-SPINE WO; 03/19/2021 7:28 am; 03/19/2021 7:31 am INDICATION: A 41-year-old female with weak right HF, weak bilateral DF,. COMPARISON: None. ACCESSION NUMBER(S): [id number]; [id number] ORDERING CLINICIAN: ROBERT HARP TECHNIQUE: Sagittal T1, [...] disc bulge and osteophytic spurring. 3. Limited manager mental health imaging of the cervical spine demonstrates moderate [...] stated. Electronically signed by: JASMEET ENRIQUEZ MD [facility] NR MRI T-SPINE WOon 03-19-20 21 NR MRI T-SPINE WO Patient Name: ARABELLA THORNTON STUDY: MRI T-SPINE WO; MRI L-SPINE WO; 03/19/2021 7:28 am; 03/19/2021 7:31 am INDICATION: A 41-year-old female with weak right HF, weak bilateral DF,. COMPARISON: None. ACCESSION NUMBER(S): [id number]; [id number] ORDERING CLINICIAN: ROBERT HARP TECHNIQUE: Sagittal T1, [...] disc bulge and osteophytic spurring. 3. Limited manager mental health imaging of the cervical spine demonstrates moderate [...] Electronically signed by: JASMEET ENRIQUEZ MD [facility] Order Reconciliationon 03-19 Order Reconciliation Page 1 Admission Reconciliation Document Reconciliation Type: Admission requested on behalf of Jasmeet Devries (Advanced Practice Nurse) done by Jasmeet Devries (PICTURE ENGRAVER-JEWEL BEARING POLISHER) Admission - Reconciliation: 19-Mar-2021 15:35 by: Jasmeet Devries (PICTURE ENGRAVER-JEWEL BEARING POLISHER) Home MedicationsEnteredLast Dose TakenReconciled with current Order [...] 24 Hours, Apply to Lower Back [facility] Patient Profile - Adult v2on 03-19-2021 Patient Profile - Adult v2 Profile: Initial Info: How to be Addressedkatie Spoken Language PreferredEnglish Stated Reason for Admissionacute exacerbation of pts back pain Wants Family/Rep Notified of Admissionn/a; family present Notify PCPnotify PCP Informed of Patient Visiting Rightsyes [facility] Statusemployed Patient Belongingsremains with patient Patient Belongings Remaining with Patientclothing; vision aids Medications Brought to Hospitalno General Health: Weight in kg66 kilogram(s)(1) Weight in hql492.5 pound(s) Weight Methodactual (measured) Scale Typestanding Height [...] Information Last Updated: 19-Mar-2021 19:03 by Genesis Miles (KIARA) References: 1. Data Referenced From 1. Vital Signs 19-Mar-2021 16:43 2. Data Referenced From Consult-Orthopaedics 19-Mar-2021 10:35 3. Data Referenced From History and Physical 19-Mar-2021 15:43 [facility] Provider Note - ED Care Coleman [...] Authorization (EUA) and has been verified by [facility] ([facility]). This test is only authorized for the [...] disc bulge and osteophytic spurring. 3. Limited manager mental health imaging of the cervical spine demonstrates moderate [...] disc bulge and osteophytic spurring. 3. Limited manager mental health imaging of the cervical spine demonstrates moderate [...] SIGNS: T PRBP SpO2O2(LPM) %FiO2 Method 19-Mar-2021 11:00:00-47844/78 19-Mar-2021 10:19:00-7453457/87 98 19-Mar-2021 10:00:00-00472/87 19-Mar-2021 09:00:00-2589161/84 94 19-Mar-2021 08:14:00-8460608/102 96 19-Mar-2021 08:00:00-8290183/102 99 19-Mar-2021 05:38:00-6026414/82 99 19-Mar-2021 02:32:00-36.29933793/98 100 room air, no respiratory support MEDICAL [...] normal disc bulge and osteophytic spurring, limited manager mental health imaging of the cervical spine demonstrates moderate [...] stable. Previous (more content not included)... [facility] Provider Note - ED v3on 08 Provider Note - ED v3 Provider Note: [...] using speech recognition software. Minor errors in kettle skimmer may be present. Please call if questions. [...] physically pr (more content not included)... 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) to steady your nerves or to get rid of hangover: no Electronic Signatures: Katherine Hager) (Signed 19-Mar-2021 07:33) Authored: Preferred Language, Advanced Directives, Family Violence Adult, Learning Assessment (Patient), Learning Assessment (Other Learner), Pressure Injury/TB/Substance, Pressure Injury, CAGE Last Updated: 19-Mar-2021 07:33 by Katherine Hager) [facility] Triage - EDon 03-19-2021 Triage - [...] BMI (kg/m2): 24.388 Calculated BSA (m2) 1.70 [place] Coma Scale: Best Eye Response: (E4) spontaneous [...] Updated: 19-Mar-2021 02:34 by Kianna Terry (RN) [facility] Provider [place] 01-14-2021 Provider Orders [id number] [id number] TIFF [facility] Coding Summaryon 09-17-2020 Coding Summary CODING DATE: [facility] STATUS: Home PAYOR: [employer] DESCRIPTION 5522 Level 2 Imaging without [...] Allie Clemons Date Saved: 09/17/2020 03:59 pm [facility] Provider [place] 09-17-2020 Provider Orders [id number] [id number] TIFF [facility] XR Spine Lumbosacral Minimum 4 Viewson [...] MD 09/16/20 3:36 pm Technologist: LISSETTE LOVETT [facility] Vital Signs Date Time Vital Sign Value Performing Clinician Facility 07-08-2022 11:20-0500 Body height 163.19 cm Juan David Jose Other [facility] Other 07-08-2022 11:20-0500 Body mass index (BMI) [Ratio] 21.29 kg/m2 Juan David Jose Other [facility] Other 07-08-2022 11:20-0500 Body weight 56.7 kg Juan David Jose Other [facility] Other 12-07-2021 11:20-0400 Body height 163.19 cm Juan David Jose Other [facility] Other 12-07-2021 11:20-0400 Body mass index (BMI) [Ratio] 23.84 kg/m2 Juan David Jose Other [facility] Other 12-07-2021 11:20-0400 Body weight 63.5 kg Juan David Jose Other [facility] Other 10-12-2021 12:00-0500 Body height 163.19 cm Juan David Jose Other [facility] Other 10-12-2021 12:00-0500 Body mass index (BMI) [Ratio] 23.84 kg/m2 Juan David Jose Other [facility] Other 10-12-2021 12:00-0500 Body weight 63.5 kg Juan David Jose Other [facility] Other 09-14-2021 08:00-0500 Body temperature 98.7 [degF] DO Migue Bunting Work Phone: [facility] 09-14-2021 08:00-0500 Diastolic blood pressure 75 mm[Hg] DO Migue Bunting Work Phone: [facility] 09-14-2021 08:00-0500 Heart rate 64 /min DO Migue Bunting Work Phone: [facility] 09-14-2021 08:00-0500 SaO2% (BldA) [Mass fraction] 100 % DO Migue Bunting Work Phone: [facility] 09-14-2021 08:00-0500 Systolic blood pressure 185 mm[Hg] DO Migue Bunting Work Phone: [facility] 09-14-2021 04:00-0500 Respiratory rate 18 /min DO Migue Bunting Work Phone: [facility] 09-13-2021 14:17-0500 Inhaled oxygen flow rate 8 L/min DO Migue Bunting Work Phone: [facility] 09-13-2021 11:11-0500 Body height 163.19 cm DO Migue Bunting Work Phone: [facility] 09-13-2021 11:11-0500 Body mass index (BMI) [Ratio] 24.4 kg/m2 DO Migue Bunting Work Phone: [facility] 09-13-2021 11:11-0500 Body weight 65 kg DO Migue Bunting Work Phone: [facility] 08-05-2021 15:40-0500 Body height 163.19 cm Juan David Jose Other [facility] Other 08-05-2021 15:40-0500 Body mass index (BMI) [Ratio] 23.84 kg/m2 Juan David Damon Other [facility] Other 08-05-2021 15:40-0500 Body weight 63.5 kg Juan David Damon Other [facility] Other 07-20-2021 13:15-0500 Body height 163.19 cm Carly Yamileth Other [facility] Other 07-20-2021 13:15-0500 Body mass index (BMI) [Ratio] 23.84 kg/m2 Carly Yamileth Other [facility] Other 07-20-2021 13:15-0500 Body temperature 98.6 [degF] Carly Nguyen Other [facility] Other 07-20-2021 13:15-0500 Body weight 63.5 kg Carly Yamileth Other [facility] Other 07-20-2021 13:15-0500 Respiratory rate 18 /min Carly Yamileth Other [facility] Other 07-20-2021 13:15-0500 SaO2% (BldA) [Mass fraction] 98 % Carly Nguyen Other [facility] Other 05-21-2021 11:00-0400 Body height 163.19 cm [facility] [employer] Other [facility] [employer] Other 05-21-2021 11:00-0400 Body mass index (BMI) [Ratio] 25.89 kg/m2 [employer] Other [facility] [employer] Other 05-21-2021 11:00-0400 Body weight 68.95 kg [employer] Other [facility] [employer] Other 05-21-2021 11:00-0400 Diastolic blood pressure 80 mm[Hg] [employer] Other [employer] Other 05-21-2021 11:00-0400 Systolic blood pressure 110 mm[Hg] [employer] Other [facility] Other Encounters Encounter Date Encounter Type Care Provider Facility Start: 03-01-2023 End: 03-01-2023 ambulatory Migue Bunting Facility:[facility] Start: 07-08-2022 End: 07-08-2022 ambulatory Juan David Jose Other [facility] [employer] Other Start: 07-08-2022 Office outpatient vi sit 15 minutes Juan David Jose [facility] Start: 07-06-2022 End: 07-06-2022 ambulatory Migue Bunting Facility:[facility] Start: 05-11-2022 End: 05-11-2022 ambulatory Migue Bunting Facility:[facility] Start: 05-11-2022 End: 05-11-2022 ambulatory DO Migue Bunting Work Phone: [facility] Work Phone: Start: 05-11-2022 End: 05-11-2022 Patient encounter procedure DO Migue Bunting Work Phone: [facility] [place] Start: 12-07-2021 End: 12-07-2021 ambulatory Juan David Jose Other [facility] Other Start: 12-07-2021 Follow-up encounter Juan David Jose [facility] Neurosurgery Start: 12-06-2021 End: 12-06-2021 Patient encounter procedure DO Migue Bunting Work Phone: [facility] Start: 10-12-2021 End: 10-12-2021 ambulatory Juan David Jose Other [facility] Other Start: 10-12-2021 Postop follow up vis it related to original px Juan David Jose [facility] Neurosurgery Start: 10-11-2021 End: 10-11-2021 Patient encounter procedure DO Migue Bunting Work Phone: [facility] Start: 09-13-2021 End: 09-14-2021 Admission to same day surgery center Juan David Jose Other [facility] Start: 09-13-2021 End: 09-13-2021 ambulatory Juan David Jose Other [facility] Other Start: 08-05-2021 End: 08-05-2021 ambulatory Juan David Jose Other [facility] Other Start: 08-05-2021 Office outpatient vi sit 40 minutes Juan David Jose [facility] Neurosurgery Start: 07-20-2021 End: 07-20-2021 ambulatory CARLY NGUYEN Facility: Start: 07-20-2021 Office outpatient vi sit 15 minutes Carly Nguyen [facility] Start: 05-27-2021 (Procedure) Billie Apple [facility] Start: 05-21-2021 Office consultation new/estab patient 60 min [facility] Procedures Date Procedure Procedure Detail Performing Clinician Start: 12-06-2021 X-ray of cervical spine DO Migue Helios Work Phone: Start: 10-11-2021 X-ray of cervical spine DO Migue Helios Work Phone: Start: 09-13-2021 OR Cervical Fusion Anterior (Not Applicable) DO Migue Helios Work Phone: Start: 09-13-2021 X-ray of cervical spine DO Migue Helios Work Phone: Plan of Treatment Date Care Activity Detail Author Patient referral [facility] Work Phone: Payers Date Payer Category Payer Self-pay [id number] 1980 Unknown [id number] [id number] [id number] 1980 Unknown [id number] [id number] [id number] 1961 Unknown [id number] 1961 Unknown [id number] Unknown [id number] Unknown [id number] 2.16.8 [id number] Unknown [id number] 2.16.8 [id number] Unknown [id number] [id number] [id number] Social History Date Type Detail Facility Start: 09-13-2021 Tobacco smoking status NHIS Ex-smoker (finding) [facility] Start: 1980 Sex Assigned At Female F [facility] Sex Assigned At Sex Assigned At Bir th [facility] Professional [place] Other Medical Equipment Procedure Code Equipment Code Equipment Original Text Equipment Identifier Dates Cervical total intervertebral disc prosthesis, modular [id number] FDA Start: 09-13-2021 Goals Date Patient Goal Desired Activity /State Functional Status Date Assessment Result Facility 09-14-2021 Functional status Patient is Pro gressing Toward Baseline [facility] Work Phone: Mental Status Date Assessment Result Facility 09-14-2021 Cognitive function Cognitive Sta tus Patient is Progressing Toward Baseline [facility] Work Phone: Clinical Notes 03-19-2021 to [...] see her again in August for follow-up. [facility] Other 05-03-2022 Evaluation note* Encounter Date Diagnosis [...] good location good placement and good motion. 03 May, 2022 Tendinitis of left forearm (ICD-10 - M77.8) [facility] Other 03-08-2022 Evaluation note* Encounter Date Diagnosis [...] again in 2 months with an x-ray. [facility] Other 12-30-2021 Evaluation note* Encounter Date Diagnosis [...] has significant left C7 pain and weakness. [facility] Other 12-14-2021 Evaluation note* Encounter Date Diagnosis [...] Patient care instructions given in writting by [facility] Care At Home document. 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 Prior to [...] medicaitons as prescribed May, Other Medical deci rj making shows a new problem to me [...] negative findings were considered in medical decision-making. [facility] Other 08-14-2021 NoteSend Summary: Discharge Summary Providers: Provider RoleProvider Name AttendingLuis Laurent Christopher Note Recipients: Migue Woo MD - [id number] [] Discharge: Summary: Admission Date: .19-Mar-2021 02:27:00 Discharge Date: 20-Mar-2021 Attending Physician at Discharge: Luis Laurent Admission Reason: Back pain(1) Final Discharge Diagnoses: 1. Acute on chronic back pain Procedures: none Condition at Discharge: Fair Disposition at Discharge: .Home Vital Signs: T PRBPSpO2 Value36.465219868/6798% on RA Date/Time03/20 14: 14: 14: 14: 14:19 Range(35.8C - 36.7C ) (56 - 101 ) (18 - 18 ) (101 - 127 )/ (67 - 83 ) (93% - 98% ) Date: Weight/Scale Type:Height: 19-Mar-2021 19:0166 kg / egpnzqyt646.1 cm Physical Exam: General: Alert and oriented [...] potentially consider pain management. Patient agreeable to replaced by [facility] service to make pain management consult. -Patient [...] Data Referenced From History and Physical 19-Mar-2021 15:43[facility]08[facility] NoteHistory of Present Illness: /Lactating: Are [...] been reviewed. Objective: Objective Information: T PRBPSpO2 Value36.04229000/7898% Date/Time03/19 2:32813 11: 10:19813 11: 10:19 Range(36.2C - 36.2C ) (53 - 86 ) (14 - 18 ) (117 - 158 )/ (78 - 102 ) (94% - 100% ) T PRBPSpO2 Value36.44943623/7898% Date/Time03/19 2:328 11: 10: 11: 10:19 Range(36.2C - 36.2C ) (53 [...] WBC Plt 4.7 -------- (more content not included)...[facility]08-[facility]21 History general Narrative - Reported* Type Description Date Medical History back pain Surgical History nasal surgery Surgical History tonsillectomy Hospitalization History back pain 03/19/21 [facility] [employer] Other Evaluation note* Diagnosis Onset Date Resolution Status Cervical disc disorder at C6-C7 level with radiculopat hy acute [facility] Work Phone: [facility]No [facility] [employer] Other Evaluation noteNo assessment information available [facility] Work Phone: [facility] Work Phone: Summary Purpose Family [...] syndro me on right (G56.01) Referral Organization [facility] Referring Provider First Name Juan David Referring Provider Last Name Damon Referring Provider Specialty Neurologica l Surgery Referred Organization [facility] Referred Provider Kiran Yo Referred Address [address],[place],[address] Referred Provider Specialty Neurology Referral Priority Routine Reason *FU 12/14 Evaluate and Treat Left Forearm Extensor Tendinitis Diagnosis 1 Tendinitis of left f orearm (M77.8) Referral Organization [facility] Referring Provider First Name Juan David Referring Provider Last Name Damon Referring Provider Specialty Neurologica l Surgery Referred Organization [facility] Referred Provider Neto Martin Jr Referred Address ,[place], [place],[address] Referred Provider Specialty Orthopedic S urgery Referral Priority Routine General Notes Leonora Umana 022 12:15:09 PM >Received and sent P2P today Additional Source Comments INFORMATION SOURCE (unrecogn ized section and content) DATE CREATED AUTHOR 01/14/2021 [facility] DATE CREATED AUTHOR AUTHOR'S ORGANIZ ATION 04/26/2021 [facility] DATE CREATED AUTHOR AUTHOR'S ORGANIZ ATION 08/20/2021 [facility] DATE CREATED AUTHOR AUTHOR'S ORGANIZ ATION 03/06/2023 [facility] Care Teams (unrecognized sec tion and [...] BE BASED ON THE PRIMARY CLINICAL RECORDS. [facility] [employer] [facility]. provides no warranty or guarantee of the accuracy or completeness of information in this document.
--- NOTE | 2023-11-13 19:50 | ED_ITS ---
HPI HPI - Back Pain/Injury General Chief Complaint: Back Pain/Injury Stated Complaint: back pain post using chain saw Time Seen by Provider: 11/13/23 19:39 Source: patient Mode of arrival: Wheelchair Limitations: no limitations History of Present Illness HPI Narrative: Patient is a 43-year-old female who presents to the emergency department for the evaluation of diffuse low back pain that has worsened throughout the afternoon. She has a history of degenerative disc disease in the lumbar spine and previous surgery on her neck for stenosis. She states she was using a chainsaw on her f arm earlier today and states she felt her back give and had weakness in her legs. She reports difficulty walking due to pain and weakness. No urinary symptoms or incontinence. No concern for . She took Flexeril prior to arrival without improvement. Related Data Home Medications ?Medication ?Instructions ?Recorded ?Confirmed naproxen 500 mg tablet 500 mg PO Q12H PRN pain 11/13/23 11/13/23 Allergies Allergy/AdvReac Type Severity Reaction Status Date / Time No Known Drug Allergies Allergy Verified 05/05/23 15:16 Opioid HPI Opioid Management Most Recent Opioid Data: Last Pain Scale 4 11/14/23 04:24 Last Pain Assessment 11/14/23 05:00 Last MAR Pain Assessment 11/14/23 04:24 Last ORT Total Score 1 11/13/23 22:52 Last ORT Risk Category Low Risk 11/13/23 22:52 Review of Systems ROS Constitutional Denies: fever or chills Ears, nose, mouth, and throat Denies: throat pain or nasal congestion Cardiovascular Denies: chest pain Respiratory Denies: shortness of breath or cough Gastrointestinal Denies: abdominal pain, nausea, vomiting or diarrhea Genitourinary Denies: painful urination or urinary incontinence Integumentary/Breast Denies: rash Endocrine Denies: excessive urination Hematologic/Lymphatic Denies: easy bruising or easy bleeding PFSH PFS Medical History (Updated 11/13/23 @ 23:36 by Jerri Davidson RN) Cervical stenosis of spine ?M48.02 - Spinal stenosis, cervical region (ICD-10) Degenerative disc disease Herniated disc Surgical History (Updated 11/13/23 @ 23:36 by Jerri Davidson RN) History of back surgery ?Z98.890 - Other specified postprocedural states (ICD-10) Family History (Updated 11/13/23 @ 22:54 by Jerri Davidson RN) Father Hyperlipemia Brother Hyperlipemia Social History (Updated 11/13/23 @ 23:36 by Jerri Davidson RN) Within the past year, how often did you have a drink containing alcohol: 2-4 times a month Within the past year, how many standard drinks containing alcohol did you have on a typical day: 1 or 2 Within the past year, how often did you have six or more drinks on one occasion: never Total score: 0 Score interpretation: A score less than 3 is consistent with normal alcohol consumption. Smoking status: Former smoker Non-prescribed substance use: denies use Highest level of school completed/degree received: Bachelor's degree Are you now , , , , never or living with a partner: Little interest or pleasure in doing things: not at all Feeling down, depressed, or hopeless: not at all Feel stressed/tense/nervous/anxious/difficulty sleeping: not at all Do you think of yourself as: lesbian/melo/homosexual Gender Identity: female Exam Narrative Exam Narrative: Gen.: Awake, alert, in no distress Head: Normocephalic, atraumatic ENT: Moist mucous membranes Respiratory: No respiratory distress Back: No bony point tenderness of the midline lumbar spine with diffuse tenderness above the coccyx and inferior lumbar spine. No paraspinal tenderness. No obvious deformity or step-off Extremities: Moves extremities equally, Normal dorsiflexion and plantarflexion of the lower extremities with normal flexion of the hips bilaterally, no decrease in sensation to the medial thighs Psych: Normal mood and affect Neuro: No focal neuro deficit Skin: Warm, dry, intact Constitutional Vital Signs, click to edit/add: Last Vital Signs Temp 97.8 F 11/14/23 03:04 Pulse 58 L 11/14/23 04:50 Resp 16 11/14/23 03:04 BP 116/69 11/14/23 03:04 Pulse Ox 95 11/14/23 04:50 O2 Del Method Room Air 11/14/23 03:04 Course Vital Signs Vital signs: Vital Signs Temperature 98 F 11/13/23 19:43 Pulse Rate 97 H 11/13/23 19:43 Respiratory Rate 16 11/13/23 19:43 Blood Pressure 131/70 11/13/23 19:43 Pulse Oximetry 97 11/13/23 19:43 Oxygen Delivery Method Room Air 11/13/23 19:43 Temperature 97.8 F 11/14/23 03:04 Pulse Rate 58 L 11/14/23 04:50 Respiratory Rate 16 11/14/23 03:04 Blood Pressure 116/69 11/14/23 03:04 Pulse Oximetry 95 11/14/23 04:50 Oxygen Delivery Method Room Air 11/14/23 03:04 MDM - Back Pain/Injury MDM Narrative Medical decision making narrative: CT of the lumbar spine was performed showing no evidence of acute pathology, dis c bulging at L5/L1 is noted. Patient is neurovascularly intact with normal dorsiflexion and plantarflexion, no saddle anesthesia or urinary symptoms. Exam is consistent with lumbar radiculopathy. Vital signs are within normal limits. Patient medicated with intramuscular Dilaudid, Norflex, Toradol initially and given additional fentanyl and solu-medrol. Evaluated by attending physician after CT results. Patient is insistent that she has had no pain improvement, she is unable to move and function and was requesting admission for intractable pain. Stable at time of admission Medical Records Attestation: I reviewed the patient's medical records. Imaging Data CT lumbar spine: Attestation: I have reviewed the pertinent imaging results. Radiologist's impression: ITS Impressions Lumbar Spine CT 11/13/23 20:32 IMPRESSION: No significant lumbar disc or bony pathology. Degenerative disc bulging without protrusion most prominent L5-S1. No evidence of stenosis. Electronically authenticated by: LENCHO ARIZA Date: 11/13/2023 21:57 Discharge Plan Discharge Chief Complaint: Back Pain/Injury Clinical Impression: Acute lumbar radiculopathy, Low back pain Patient Disposition: Admitted as Observation Time of Disposition Decision: 22:08 Condition: Fair Discharge Date/Time: 11/13/23 22:42
[2023-11-13] MEDS: KETOROLAC TROMETHAMINE 60 MG/2 ML VIAL IM (20:01)
[2023-11-13] MEDS: HYDROMORPHONE HCL 1 MG/ML CARTRIDGE IM (20:01)
[2023-11-13] MEDS: ORPHENADRINE 60 MG/ 2 ML VIAL IM (20:01)
[2023-11-13] MEDS: ONDANSETRON 4 MG RAPDIS TABLET SL (20:01)
--- NOTE | 2023-11-13 20:32 | CT_ITS ---
[address] [address] Patient Name: ARABELLA MARSHALL MRN: [id number] date: 1980 Sex: F Assigned Patient Location: ER Current Patient Location: ER Accession/Order Number: [id number] Exam Date: 11/13/2023 20:28 Report Date: 11/13/2023 21:57 At the request of: DAY EVANS Procedure: CT lumbar spine wo con EXAM: CT lumbar spine wo con HISTORY: low back pain COMPARISON: Lumbar spine x-ray 09/16/2020. TECHNIQUE: CT lumbar spine noncontrast. Axial scans with reformatted coronal and sagittal images. FINDINGS: For the purpose of this study L1 designated as having rudimentary ribs. S1 has a transitional appearance. There are 4 typical lumbar type vertebral bodies L2-L5. No fracture or focal bone lesion. T12-L1: No disc protrusion or stenosis. L1-L2: No disc protrusion, no stenosis. L2-L3: Normal disc, no stenosis. L3-L4: Normal disc, no protrusion. No stenosis. L4-L5: Mild disc bulging without focal protrusion. No stenosis. L5-S1: Diffuse disc bulging moderate. No definite stenosis. No definite L5 nerve root compression. Paraspinal soft tissues unremarkable. CT/CT lumbar spine wo con IMPRESSION: No significant lumbar disc or bony pathology. Degenerative disc bulging without protrusion most prominent L5-S1. No evidence of stenosis. Electronically authenticated by: LENCHO ARIZA Date: 11/13/2023 21:57
[2023-11-13] MEDS: FENTANYL CITRATE/PF 100 MCG/2 ML VIAL 50 MCG IV (22:36)
[2023-11-13] MEDS: METHYLPREDNISOLONE SOD SUCC PF 125 MG/2 ML VIAL IVP (22:36)
--- OUTSIDE RECORDS SUMMARY | 2023-11-13 22:47 | XMS_ITS | CCD ---
Author Organization [facility] Care Team Providers Care Precision Devices Inspector/Tester Name Role Phone RUFINAC, DR LANDIN Attending Unavailable MISMatilda, DR LANDIN Admitting Unavailable CARLY NGUYEN Admitting Unavailable CARLY NGUYEN Consulting Unavailable CARLY NGUYEN Attending Unavailable Bunting, DO [place] Primary Care Provider [phone] MD Juan David Jose Attending Provider [phone] MD Je Maradiaga Attending Provider Ever Apple Unavailable Juan David Jose Unavailable Carly Nguyen Unavailable Bunting, DO [place] Primary Care Provider Bunting, DO Migue Attending Provider Bunting, Migue Primary Care Unavailable [...] n 03-01-2023 MM screening mammo BI w/CAD [facility] Main [place] [id number] Mammography Report Signed Patient: Arabella Thornton MR#: [id number] : 1980 Acct:[id number] Age/Sex: 42 / F ADM Date: 03/01/23 Loc: [place] Room: Type: [facility] Attending Dr: Migue Woo DO Copies to: [...] Graves Jr., D.OChelle03/01/2023 3:00 PM Dictation Location: [facility] Transcribed By: [facility] 03/01/23 1500 Dictated By: Raghu Graves Jr, DO 03/01/23 1500 Signed By: 03/01/23 1500 Normal [facility] XR cerv spine AP/LAT/FLX/EXT on 07-06-2022 XR cerv spine AP/LAT/FLX/EXT [address] [address] XRay Report Signed Patient: Arabella Thornton MR#: [id number] : 1980 Acct:[id number] Age/Sex: 42 / F ADM Date: 07/06/22 Loc: XD Room: Type: [facility] Attending Dr: Juan David Jose MD Copies [...] Adelina Wheeler M.D.07/06/2022 3:49 PM Dictation Location: [place] [address] Transcribed By: [facility] 07/06/22 1549 Dictated By: Adelina Wheeler MD 07/06/22 1547 Signed By: 07/06/22 1549 [facility] Albumin [Mass/volume] in Ser um or PlasmaOrdered By: Migue Woo on 05-11-2022 Albumin [Mass/Vol] 3.9 g/dL 3.2-5.5 [facility] Cholesterol [Mass/volume] in Serum or PlasmaOrdered By: Migue Woo on 05-11-2022 Cholesterol [Mass/Vol] 164 mg/dL 140-200 [facility] Comment on above: Chol less than 200 m g/dl low riskChol 201-239 mg/dl borderline riskChol 240 mg/dl and greater high risk Cholesterol in LDL Calc [Mas s/Vol]Ordered By: Migue Woo on 05-11-2022 Cholesterol in LDL [Mass/Vol] 92 mg/dL 0-100 [facility] Comment on above: LDL ATP III CLASSIFI CATIONLDL less than 100 mg/dL OptimalLDL 100-129 mg/dL Near or above optimalLDL 130-159 mg/dL Borderline highLDL 160-189 mg/dL HighLDL greater than 189 mg/dL Very high Cholesterol in VLDL Calc [Ma ss/Vol]Ordered By: Migue Woo on 05-11-2022 Cholesterol in VLDL [Mass/Vol] 9 mg/dL [facility] Comprehensive Metabolic Pane dora 05-11-2022 Albumin [Mass/Vol] 3.9 g/dL Normal 3.2-5.5 [facility] Comment on above: Performed By: #### C MP, LIPID #### [facility] [address] Albumin/Globulin [Mass ratio] 1.6 {ratio} Normal [facility] Comment on above: Performed By: #### C MP, LIPID #### [facility] [address] ALP [Catalytic activity/Vol] 68 U/L Normal 32-92 [facility] Comment on above: Performed By: #### C MP, LIPID #### [facility] [address] ALT [Catalytic activity/Vol] 12 U/L Normal 10-60 [facility] Comment on above: Performed By: #### C MP, LIPID #### [facility] [address] [place] [address] [place] Anion gap [Moles/Vol] 11.5 mmol/L Normal 6.0-15.0 [facility] Comment on above: Performed By: #### C MP, LIPID #### [facility] [address] AST [Catalytic activity/Vol] 14 U/L Normal 10-42 [facility] Comment on above: Performed By: #### C MP, LIPID #### [facility] [address] [place] [address] [place] Bilirubin [Mass/Vol] 0.5 mg/dL Normal 0.3-1.2 [facility] Comment on above: Performed By: #### C MP, LIPID #### [facility] [address] Calcium [Mass/Vol] 8.6 mg/dL Normal 8.2-10.2 [facility] Comment on above: Performed By: #### C MP, LIPID #### [facility] [address] Chloride [Moles/Vol] 102 mmol/L Normal 95-114 [facility] Comment on above: Performed By: #### C MP, LIPID #### [facility] [address] [place] [address] CO2 [Moles/Vol] 25.3 mmol/L Normal 22.0-30.0 [facility] Comment on above: Performed By: #### C MP, LIPID #### [address] Creatinine [Mass/Vol] 0.65 mg/dL Normal 0.44-1.03 [facility] Comment on above: Performed By: #### C MP, LIPID #### [address] Estimated GFR ( Jessica > 60 [facility] Comment on above: Result Comment: GFR estimated reference range: According to KDOQI guidelines, <60 ml/min/1.73m2 is sufficient to diagnose a patient with chronic kidney disease. Performed By: #### C MP, LIPID #### [place] [address] [place] Estimated GFR (Non- Am > 60 Normal [facility] Comment on above: Performed By: #### C MP, LIPID #### [facility] [address] [place] [address] [place] Globulin (S) [Mass/Vol] 2.5 g/dL [facility] Comment on above: Performed By: #### C MP, LIPID #### [facility] [address] [place] [address] [place] Glucose [Mass/Vol] 95 mg/dL Normal 70-100 [facility] Comment on above: Result Comment: [place] Glucose Reference Range is dependent on time and content of last meal. Glucose of more than 200 mg/dL in a nonstressed, ambulatory subject supports the diagnosis of Diabetes Mellitus. ADA recommended reference range Performed By: #### C MP, LIPID #### [facility] [address] [place] [address] [place] Potassium [Moles/Vol] 3.8 mmol/L Normal 3.5-5.1 [facility] Comment on above: Performed By: #### C MP, LIPID #### [facility] [address] [place] [address] [place] Protein [Mass/Vol] 6.4 g/dL Normal 6.1-7.9 [facility] Comment on above: Performed By: #### C MP, LIPID #### [facility] [address] [place] [address] [place] Sodium [Moles/Vol] 135 mmol/L Low 136-146 [facility] Comment on above: Performed By: #### C MP, LIPID #### [facility] [address] [place] [address] [place] Urea nitrogen [Mass/Vol] 5 mg/dL Low 9-23 [facility] Comment on above: Performed By: #### C MP, LIPID #### [facility] [address] [place] [address] [place] Creatinine and Glomerular fi ltration rate.predicted panel (S/P/Bld)Ordered By: Migue Woo on 05-11-2022 Creatinine [Mass/Vol] 0.65 mg/dL 0.44-1.03 [facility] Estimated glomerular filtrat ion rate (GFR) non- AmericanOrdered By: Migue Woo on 05-11-2022 GFR/1.73 sq M.predicted among non-blacks MDRD (S/P/Bld) [Vol rate/Area] > 60 mL/Min [facility] Globulin Calc (S) [Mass/Vol] Ordered By: Migue oWo on 05-11-2022 Globulin (S) [Mass/Vol] 2.5 g/dL [facility] Lipid Panelon 05-11-2022 Cholesterol [Mass/Vol] 164 mg/dL Normal 140-200 [facility] Comment on above: Result Comment: Chol less than 200 mg/dl low risk Chol 201-239 mg/dl borderline risk Chol 240 mg/dl and greater high risk Performed By: #### C MP, LIPID #### [facility] [address] Cholesterol in HDL [Mass/Vol] 62 mg/dL Normal 35-85 [facility] Comment on above: Result Comment: HDL CHOL ATP-III CLASSIFICATION Cardiovascular Risk HDL > or equal to 60 mg/dL LOW HDL < 40 mg/dL HIGH Performed By: #### C MP, LIPID #### [facility] [address] Cholesterol.total/Chol esterol in HDL [Mass ratio] 2.6 {ratio} Normal <5.0 [facility] Comment on above: Result Comment: PERF ORMED BY: [place] [address] PATHOLOGIST SULPHATE TESTER COLLEEN HEARN M.D. Performed By: #### C MP, LIPID #### [address] LDL Cholesterol,Calculated 92 mg/dL Normal 0-100 [facility] Comment on above: Result Comment: LDL ATP III CLASSIFICATION LDL less than 100 mg/dL Optimal LDL 100-129 mg/dL Near or above optimal LDL 130-159 mg/dL Borderline high LDL 160-189 mg/dL High LDL greater than 189 mg/dL Very high Performed By: #### C MP, LIPID #### [facility] [address] [place] [address] [place] Triglyceride w/Reflex 49 mg/dL Normal 35-149 [facility] Comment on above: Result Comment: TRIG ATP III CLASSIFICATION TRIG less than 150 mg/dL Normal TRIG 150-199 mg/dL Borderline high TRIG 200-500 mg/dL High TRIG greater than 500 mg/dL Very high Standard traceable to the Center for Disease Conrtrol and Prevention (CDC) test method. Performed By: #### C MP, LIPID #### [facility] [address] VLDL CHOLESTEROL 9 mg/dL Normal [facility] Comment on above: Performed By: #### C MP, LIPID #### [facility] [address] No Panel InformationOrdered By: Migue Woo on 05-11-2022 Estimated GFR () > 60 mL/Min [facility] Comment on above: GFR estimated refere nce range: According to KDOQI guidelines, <60 ml/min/1.73m2 is sufficient to diagnose a patient with chronic kidney disease. Pharmacy Creatinine Clearance (Chem N/A [facility] Protein [Mass/volume] in Ser um or PlasmaOrdered By: Migue Woo on 05-11-2022 Protein [Mass/Vol] 6.4 g/dL 6.1-7.9 [facility] Serum or plasma alanine bolivar otransferase measurement without P-5'-P (enzymatic activiOrdered By: Migue Woo on 05-11-2022 ALT No additional P-5'-P [Catalytic activity/Vol] 12 U/L [facility] Serum or plasma albumin/glob ulin mass ratioOrdered By: Migue Woo on 05-11-2022 Albumin/Globulin [Mass ratio] 1.6 {ratio} [facility] Serum or plasma alkaline nataliia sphatase measurement (enzymatic activity/volume)Ordered By: Migue Woo on 05-11-2022 ALP [Catalytic activity/Vol] 68 U/L 3292 [facility] Serum or plasma anion gap de terminationOrdered By: Migue Woo on 05-11-2022 Anion gap [Moles/Vol] 11.5 mmol/L 6.0-15.0 [facility] Serum or plasma aspartate am inotransferase measurement (enzymatic activity/volume)Ordered By: Migue Bunnayeli on 05-11-2022 AST [Catalytic activity/Vol] 14 U/L [facility] Serum or plasma calcium attila urement (mass/volume)Ordered By: Migue Woo on 05-11-2022 Calcium [Mass/Vol] 8.6 mg/dL 8.2-10.2 [facility] Serum or plasma chloride beba surement (moles/volume)Ordered By: Migue Woo on 05-11-2022 Chloride [Moles/Vol] 102 mmol/L 95-114 [facility] Serum or plasma glucose attila urement (mass/volume)Ordered By: Migue Woo on 05-11-2022 Glucose [Mass/Vol] 95 mg/dL 70-100 [facility] Comment on above: ADA recommended refe rence rangeRandom Glucose Reference Range is dependent on time and content of last meal. Glucose of more than 200 mg/dL in a nonstressed, ambulatory subject supports the diagnosis of Diabetes Mellitus. Serum or plasma high density lipoprotein (HDL) cholesterol measurementOrdered By: Migue Woo on 05-11-2022 Cholesterol in HDL [Mass/Vol] 62 mg/dL 35-85 [facility] Comment on above: HDL CHOL ATP-III CLA SSIFICATION Cardiovascular RiskHDL > or equal to 60 mg/dL LOWHDL < 40 mg/dL HIGH Serum or plasma potassium me asurement (moles/volume)Ordered By: Migue Woo on 05-11-2022 Potassium [Moles/Vol] 3.8 mmol/L 3.5-5.1 [facility] Serum or plasma sodium measu rement (moles/volume)Ordered By: Migue Woo on 05-11-2022 Sodium [Moles/Vol] 135 mmol/L 136-146 [facility] Serum or plasma total biliru bin measurement (mass/volume)Ordered By: Migue Woo on 05-11-2022 Bilirubin [Mass/Vol] 0.5 mg/dL 0.3-1.2 [facility] Serum or plasma total carbon dioxide measurement (moles/volume)Ordered By: Migue Woo on 05-11-2022 CO2 [Moles/Vol] 25.3 mmol/L 22.0-30.0 [facility] Serum or plasma total choles terol/high density lipoprotein (HDL) cholesterol mass ratOrdered By: Migue Woo on 05-11-2022 Cholesterol.total/Chol esterol in HDL [Mass ratio] 2.6 {ratio} <5.0 [facility] Serum or plasma urea nitroge n measurement (mass/volume)Ordered By: Migue Woo on 05-11-2022 Urea nitrogen [Mass/Vol] 5 mg/dL 9-23 [facility] Triglyceride [Mass/volume] i n Serum or PlasmaOrdered By: Migue Woo on 05-11-2022 Triglyceride [Mass/Vol] 49 mg/dL 35-149 [facility] Comment on above: TRIG ATP III CLASSIF ICATIONTRIG less than 150 mg/dL NormalTRIG 150-199 mg/dL Borderline highTRIG 200-500 mg/dL High TRIG greater than 500 mg/dL Very highStandard traceable to the Center for Disease Conrtrol and Prevention (CDC) test method. HCG ( test) [place].rapi d Ql (U)Ordered By: Allan Wills on 09-13-2021 HCG ( test) Ql (U) Negative [facility] COVID Quick Testingon 2020 Result Negative [employer] Other Covid-19 PCR ([facility])on 07-07 SARS-CoV-2 (COVID-19) RNA JUN+probe Ql (Unsp spec) Detected Critically abnormal NOT DETECTED [facility] Comment on above: Result Comment: This test is not yet approved or cleared by the [place] FDA. When there are no FDA-approved or cleared tests available, and other criteria are met, FDA can make tests available under an emergency access mechanism called an Emergency Use Authorization (EUA). The EUA for this test is supported by the [employer] [place] [employer] of Health and Human Service's (HHS's) declaration [...] used). Performed By: #### C VDTB #### [facility] [address] [place] [address] [address] Alejandra Sherman Discharge [id number] Discharge Profile2 Discharge Orders: Anticipated Discharge Date: Anticipated Discharge [id number] Anticipated Discharge Time16:54 Hospital Providers: Provider RoleProvider Name AttendingLuis Laurent Christopher DNAR: DNAR Status: none Activity: activity as tolerated. Diet: Dietregular Provider FINAL REVIEW of Orders: Final Review: Final Review of Medication Reconciliation and Orders Completedby Physician Reviewing ProviderLuis Laurent MD at 20-Mar-2021 16:56:00 Appointments: Follow-Up Appointment 01: Physician/Dept/ServiceDr Chelle Woo PCP Phone [phone] CommentsConcierge service to make appointment Order received after discharge Reached out to patient lvm & sent letter Follow-Up Appointment 02: Physician/Dept/Service Pain management Phone [phone] CommentsConcierge service to make appointment Order received after discharge Reached out to patient lvm & sent letter Electronic Signatures: Alice Horta (PT SVS REP) (Signed 22-Mar-2021 11:54) Authored: Appointments Luis Laurent) (Signed 20-Mar-2021 16:56) Authored: Discharge Orders, Provider FINAL REVIEW of Orders, Appointments, Gold Form - Square Dance Caller Summary Last Updated: 22-Mar-2021 11:54 by Alice Horta (PT SVS REP) [facility] Order Reconciliationon 03-20 Order Reconciliation Page 1 [...] ICD 10 code M54.9, Back Pain Normal [facility] Admission Risk Screen - Adul ton 03-19-2021 [...] AlertFor Ebola-like Symptoms: Isolate Patient and Notify Provider/Page Technician For Contact: Notify Provider/Page Technician Advance Directive: Advance Directive/DNRno (1) Advance Directive [...] instruction; individual instruction Cultural Considerationsnone Developmental Considerationsnone Amish Considerationsnone Learning Assessment (Other Learner): Other learner availableno Depression Screen: During the past month, have you often been bothered by feeling down, depressed or hopelessno During the past month, have you often had little interest or pleasure in doing thingsno Have you had any thoughts of harming anyone elseno (2) [place] Suicide: Risk Screen Not Applicable/Able to Answerable to be screened In the Past Month: Have you wished you were or could go to sleep and not wake upno(2) In the Past Month: Have you had any actual thoughts of killing yourself no(2) Lifetime: Have you ever done, started to do, or prepared to do anything to end your lifeno [place] Suicide Risknegative Adult Nutrition Screen: Have you [...] Spiritual Screen: Are there any cultural, spiritual, adventism practices/values/needs that are important for us to knowno CAGE: Is this an injured patient at a Trauma Center ([facility]/[place] /[place]): yes (1) C: Have you ever felt you needed to Cut down on your drinking: no (1) A: Have people Annoyed you by criticizing your drinking: no (1) G: Have you ever felt Guilty about drinking: no (1) E: Have you ever felt you needed a drink first thing in the morning (Eye-director of healthcare systems) to steady your nerves or to get rid of hangover: no (1) Vaccinations: Vaccination - Influenza Vaccination Screen: Is it flu season (between and November 04)No Vaccination - Pneumonia Vaccination Screen: Patient has received a previous pneumonia vaccine:no/unknown... Immunocompetent persons with underlying chronic conditions or reside in ocean transportation intermediary care facilitiesnone of these conditions Persons with Functional or Anatomic Asplenianone of these conditions Immunocompromised Personsnone of these conditions Pneumonia vaccine NOT indicated due to:patient DOES NOT have a condition that indicates vaccination patient/caregiver refusal at this time Kervin (more content not included)... Normal [facility] BASIC METABOLIC PANELon 03-07 Anion gap [Moles/Vol] 19 mmol/L Normal 10 - 20 [facility] Comment on above: Performed By: #### B MP ####[id number] [place] [address] Calcium [Mass/Vol] 10.0 mg/dL Normal 8.6 - 10.6 [facility] Comment on above: Performed By: #### B MP ####[id number] [place] [address] Chloride [Moles/Vol] 99 mmol/L Normal 98 - 107 [facility] Comment on above: Performed By: #### B MP ####[id number] [place] [address] Creatinine [Mass/Vol] 0.71 mg/dL Normal 0.50 - 1.05 [facility] Comment on above: Performed By: #### B MP ####[id number] [place] [address] GFR- AM. >60 Normal >60 [facility] Comment on above: Result Comment: CALC ULATIONS OF ESTIMATED GFR ARE PERFORMED USING THE MDRD STUDY EQUATION FOR THE IDMS-TRACEABLE CREATININE METHODS. CLIN CHEM 2007;53:766-72 Performed By: #### B MP ####[id number] [place] [address] GFR-NON AM. >60 Normal >60 [facility] Comment on above: Performed By: #### B MP ####[id number] [place] [address] Glucose [Mass/Vol] 85 mg/dL Normal 74 - 99 [facility] Comment on above: Performed By: #### B MP ####[id number] [place] [address] HCO3 (Bld) [Moles/Vol] 23 mmol/L Normal 21 - 32 [facility] Comment on above: Performed By: #### B MP ####[id number] [place] [address] Potassium [Moles/Vol] 3.3 mmol/L Low 3.5 - 5.3 [facility] Comment on above: Performed By: #### B MP ####[id number] [place] [address] Sodium [Moles/Vol] 138 mmol/L Normal 136 - 145 [facility] Comment on above: Performed By: #### B MP ####[id number] [place] [address] Urea nitrogen [Mass/Vol] 7 mg/dL Normal 6 - 23 [facility] Comment on above: Performed By: #### B MP ####[id number] [place] [address] CBC AND DIFFERENTIALon 03-19 % AUTOMATED IMMATURE GRAN 0.2 % Normal 0.0 - 0.9 [facility] Comment on above: Result Comment: Leslie ture Granulocyte Count (IG) includes promyelocytes, myelocytes and metamyelocytes but does not include bands. Percent differential counts (%) should be interpreted in the context of the absolute cell counts (cells/L). Performed By: #### C BCDF ####[id number] [place] [address] Basophils (Bld) [#/Vol] 0.03 10*3/uL Normal 0.00 - 0.10 [facility] Comment on above: Performed By: #### C BCDF ####[id number] [place] [address] Basophils/100 WBC (Bld) 0.6 % Normal 0.0 - 2.0 [facility] Comment on above: Performed By: #### C BCDF ####[id number] [place] [address] Eosinophils (Bld) [#/Vol] 0.06 10*3/uL Normal 0.00 - 0.70 [facility] Comment on above: Performed By: #### C BCDF ####[id number] [place] [address] Eosinophils/100 WBC (Bld) 1.3 % Normal 0.0 - 6.0 [facility] Comment on above: Performed By: #### C BCDF ####[id number] [place] [address] Erythrocyte distribution width (RBC) [Ratio] 12.7 % Normal 11.5 - 14.5 [facility] Comment on above: Performed By: #### C BCDF ####[id number] [place] [address] Hematocrit (Bld) [Volume fraction] 37.0 % Normal 36.0 - 46.0 [facility] Comment on above: Performed By: #### C BCDF ####[id number] [place] [address] Hemoglobin (Bld) [Mass/Vol] 12.6 g/dL Normal 12.0 - 16.0 [facility] Comment on above: Performed By: #### C BCDF ####[id number] [place] [address] Lymphocytes (Bld) [#/Vol] 1.16 10*3/uL Low 1.20 - 4.80 [facility] Comment on above: Performed By: #### C BCDF ####[id number] [place] [address] Lymphocytes/100 WBC (Bld) 24.8 % Normal 13.0 - 44.0 [facility] Comment on above: Performed By: #### C BCDF ####[id number] [place] [address] MCHC (RBC) [Mass/Vol] 34.1 g/dL Normal 32.0 - 36.0 [facility] Comment on above: Performed By: #### C BCDF ####[id number] [place] [address] MCV (RBC) [Entitic vol] 100 fL Normal 80 - 100 [facility] Comment on above: Performed By: #### C BCDF ####[id number] [place] [address] Monocytes (Bld) [#/Vol] 0.46 10*3/uL Normal 0.10 - 1.00 [facility] Comment on above: Performed By: #### C BCDF ####[id number] [place] [address] Monocytes/100 WBC (Bld) 9.8 % Normal 2.0 - 10.0 [facility] Comment on above: Performed By: #### C BCDF ####[id number] [place] [address] Neutrophils (Bld) [#/Vol] 2.96 10*3/uL Normal 1.20 - 7.70 [facility] Comment on above: Performed By: #### C BCDF ####[id number] [place] [address] Neutrophils/100 WBC (Bld) 63.3 % Normal 40.0 - 80.0 [facility] Comment on above: Performed By: #### C BCDF ####[id number] [place] [address] NUCLEATED RBC 0.0 /100 WBC Normal 0.0-0.0 [facility] Comment on above: Performed By: #### C BCDF ####[id number] [place] [address] Platelets (Bld) [#/Vol] 333 10*3/uL Normal 150 - 450 [facility] Comment on above: Performed By: #### C BCDF ####[id number] [place] [address] RBC 3.69 x10E12/L Low 4.00 - 5.20 [facility] Comment on above: Performed By: #### C BCDF ####[id number] [place] [address] WBC (Bld) [#/Vol] 4.7 10*3/uL Normal 4.4 - 11.3 [facility] Comment on above: Performed By: #### C BCDF ####[id number] [place] [address] CORONAVIRUS 2019, SCREEN ASY MPTOMATICon 08-13-2021 SARS-CoV-2 (COVID-19) RNA JUN+probe Ql (Unsp spec) Not detected Normal Not Detected [facility] Comment on above: Result Comment: . This test has received FDA Emergency Use Authorization (EUA) and has been verified by [facility] ([facility]). This test is only authorized for the duration of time that circumstances exist to justify the authorization of the emergency use of in vitro diagnostic tests for the detection of SARS-CoV-2 virus and/or diagnosis of COVID-19 infection under section 564(b)(1) of the Act, 21 U.S.C. 360bbb-3(b)(1), unless the authorization is terminated or revoked sooner. [facility] is certified under CLIA-88 as qualified to perform high complexity testing. Testing is performed in the [facility] located at [address] [place] [address]. SARS-CoV-2/Flu/RSV Multiplex Test: Fact sheet for providers: https://www.fda.gov/media/834447/download Fact sheet for patients: https://www.fda.gov/media/326852/download Performed By: #### C [facility] #### [address] [place] [address] Lab Specimen Source Nasal, Nasopharyngeal [facility] Comment on above: Performed By: #### C [facility] #### [address] 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 Please contact respective team for any questions/concerns Ortho Spine team: Sav Rodriguez, PGY-2 - [id number] Axel Wong, PGY-3 - Miguel A Cornell, PGY-4 - [id number] Attestation: Note Completion: I am a: Resident/Fellow [...] the following: I personally evaluated the patient [id number] Comments/ Additional Findings As noted She does [...] Screen - Adult Emergency 19-Mar-2021 07:32 [facility] Covid 19 Resultson 1 SARS-CoV-2 (COVID-19) RNA [...] You may also be contacted by the [facility] to see if any of your close [...] or Naproxen (Aleve) can also be used. Dzts-hhg-bkyapnc cough and cold medicines can be used according to the instructions on the package. Some mdws-xwv-leihphd medicines also contain acetaminophen. Make sure you [...] water are not available, use alcohol-based hand dialer. Avoid touching your eyes, nose, and mouth [...] 24 merritt (more content not included)... [facility] NR MRI CERVICAL WOon 021 NR MRI CERVICAL WO Patient Name: ARABELLA THORNTON STUDY: MRI CERVICAL WO; 03/19/2021 1:00 pm INDICATION: Partially visualized degenerative changes on T spine MRI. COMPARISON: Thoracic spine MRI, same day ACCESSION NUMBER(S): [id number] ORDERING CLINICIAN: DAYDAY BETTS TECHNIQUE: Sagittal T1, [...] signed by: ZAC CHIN MD, PHD [facility] NR MRI L-SPINE WOon 03-19-20 21 NR MRI L-SPINE WO Patient Name: NORBERTO, ARABELLA STUDY: MRI T-SPINE WO; MRI L-SPINE WO; 03/19/2021 7:28 am; 03/19/2021 7:31 am INDICATION: A 41-year-old female with weak right HF, weak bilateral DF,. COMPARISON: None. ACCESSION NUMBER(S): [id number]; [id number] ORDERING CLINICIAN: ROBERT HARP TECHNIQUE: Sagittal T1, [...] disc bulge and osteophytic spurring. 3. Limited supervising bailiff imaging of the cervical spine demonstrates moderate [...] stated. Electronically signed by: JASMEET ENRIQUEZ MD [facility] NR MRI T-SPINE WOon 03-19-20 21 NR MRI T-SPINE WO Patient Name: ARABELLA THORNTON STUDY: MRI T-SPINE WO; MRI L-SPINE WO; 03/19/2021 7:28 am; 03/19/2021 7:31 am INDICATION: A 41-year-old female with weak right HF, weak bilateral DF,. COMPARISON: None. ACCESSION NUMBER(S): [id number]; [id number] ORDERING CLINICIAN: ROBERT HARP TECHNIQUE: Sagittal T1, [...] disc bulge and osteophytic spurring. 3. Limited supervising bailiff imaging of the cervical spine demonstrates moderate [...] Electronically signed by: JASMEET ENRIQUEZ MD [facility] Order Reconciliationon 03-19 Order Reconciliation Page 1 Admission Reconciliation Document Reconciliation Type: Admission requested on behalf of Jasmeet Devries (Advanced Practice Nurse) done by Jasmeet Devries (RADIOLOGIC TECHNOLOGY PROGRAM DIRECTOR-PARTY COORDINATOR) Admission - Reconciliation: 19-Mar-2021 15:35 by: Jasmeet Devries (RADIOLOGIC TECHNOLOGY PROGRAM DIRECTOR-PARTY COORDINATOR) Home MedicationsEnteredLast Dose TakenReconciled with current Order [...] 24 Hours, Apply to Lower Back [facility] Patient Profile - Adult v2on 03-19-2021 Patient Profile - Adult v2 Profile: Initial Info: How to be Addressedkatie Spoken Language PreferredEnglish Stated Reason for Admissionacute exacerbation of pts back pain Wants Family/Rep Notified of Admissionn/a; family present Notify PCPnotify PCP Informed of Patient Visiting [facility]yes [facility] Statusemployed Patient Belongingsremains with patient Patient Belongings Remaining with Patientclothing; vision aids Medications Brought to Hospitalno General Health: Weight in kg66 kilogram(s)(1) Weight in pyz504.5 pound(s) Weight Methodactual (measured) Scale Typestanding Height [...] From History and Physical 19-Mar-2021 15:43 [facility] Provider Note - ED Care Coleman sitionon [...] Authorization (EUA) and has been verified by [facility] ([facility]). This test is only authorized for [...] disc bulge and osteophytic spurring. 3. Limited supervising bailiff imaging of the cervical spine demonstrates moderate [...] disc bulge and osteophytic spurring. 3. Limited supervising bailiff imaging of the cervical spine demonstrates moderate [...] SIGNS: T PRBP SpO2O2(LPM) %FiO2 Method 19-Mar-2021 11:00:00-25502/78 19-Mar-2021 10:19:00-4297415/87 98 19-Mar-2021 10:00:00-39889/87 19-Mar-2021 09:00:00-7011844/84 94 19-Mar-2021 08:14:00-3568223/102 96 19-Mar-2021 08:00:00-2918738/102 99 19-Mar-2021 05:38:00-2901232/82 99 19-Mar-2021 02:32:00-36.62360185/98 100 room air, no respiratory support MEDICAL [...] normal disc bulge and osteophytic spurring, limited supervising bailiff imaging of the cervical spine demonstrates moderate [...] stable. Previous (more content not included)... [facility] Provider Note - ED v3on 08 Provider [...] using speech recognition software. Minor errors in general practitioner may be present. Please call if questions. [...] physically pr (more content not included)... [facility] Risk Screen - Adult Emergenc yon 03-19-2021 [...] Learning Preferencesverbal instruction Cultural Considerationsnone Developmental Considerationsnone Amish Considerationsnone Learning Assessment (Other Learner): Learning Assessment (Other Learner): Other learner availableno Pressure Injury/TB/Substance: Pressure Injury: Pressure Injury Present on Admissionno Do you have a coughno Smoking Statusnever smoker Drug Usedenies Admission Risk Screen: Significant IndicatorsComplete CAGE: CAGE: Is this an injured patient at a Trauma Center ([facility]/[place] /[place]): yes C: Have you ever felt you needed to Cut down on your drinking: no A: Have people Annoyed you by criticizing your drinking: no G: Have you ever felt Guilty about drinking: no E: Have you ever felt you needed a drink first thing in the morning (Eye-director of healthcare systems) to steady your nerves or to get rid of hangover: no Electronic Signatures: Katherine Hager) (Signed 19-Mar-2021 07:33) Authored: Preferred Language, Advanced Directives, Family Violence Adult, Learning Assessment (Patient), Learning Assessment (Other Learner), Pressure Injury/TB/Substance, Pressure Injury, CAGE Last Updated: 19-Mar-2021 07:33 by Katherine Hager) [facility] Triage - EDon 03-19-2021 Triage - ED [...] BMI (kg/m2): 24.388 Calculated BSA (m2) 1.70 Hawi Coma Scale: Best Eye Response: (E4) spontaneous [...] Updated: 19-Mar-2021 02:34 by Kianna Terry (RN) [facility] Provider [place] 01-14-2021 Provider Orders [id number] 6051 [id number] TIFF [facility] Coding Summaryon 09-17-2020 Coding Summary CODING DATE: [facility] STATUS: Home PAYOR: [employer] DESCRIPTION [...] Allie Clemons Date Saved: 09/17/2020 03:59 pm [facility] Provider [place] 09-17-2020 Provider Orders [id number] 2050 [id number] TIFF [facility] XR Spine Lumbosacral Minimum 4 Viewson [...] MD 09/16/20 3:36 pm Technologist: LISSETTE LOVETT [facility] Vital Signs Date Time Vital Sign Value Performing Clinician Facility 07-08-2022 11:20-0500 Body height 163.19 cm Juan David Jose Other [employer] Other 07-08-2022 11:20-0500 Body mass index (BMI) [Ratio] 21.29 kg/m2 Juan David Jose Other [facility] Other 07-08-2022 11:20-0500 Body weight 56.7 kg Juan David Jose Other [facility] Other 12-07-2021 11:20-0400 Body height 163.19 cm Juan David Jose Other [employer] Other 12-07-2021 11:20-0400 Body mass index (BMI) [Ratio] 23.84 kg/m2 Juan David Jose Other [facility] Other 12-07-2021 11:20-0400 Body weight 63.5 kg Juan David Jose Other [facility] Other 10-12-2021 12:00-0500 Body height 163.19 cm Juan David Jose Other [employer] Other 10-12-2021 12:00-0500 Body mass index (BMI) [Ratio] 23.84 kg/m2 Juan David Jose Other [facility] Other 10-12-2021 12:00-0500 Body weight 63.5 kg Juan David Jose Other [employer] Other 09-14-2021 08:00-0500 Body temperature 98.7 [degF] DO Migue Bunting Work Phone: [facility] 09-14-2021 08:00-0500 Diastolic blood pressure 75 mm[Hg] DO Migue Bunting Work Phone: [facility] 09-14-2021 08:00-0500 Heart rate 64 /min DO Migue Bunting Work Phone: [facility] 09-14-2021 08:00-0500 SaO2% (BldA) [Mass fraction] 100 % DO Migue Bunting Work Phone: [facility] 09-14-2021 08:00-0500 Systolic blood pressure 185 mm[Hg] DO Migue Bunting Work Phone: [facility] 09-14-2021 04:00-0500 Respiratory rate 18 /min DO Migue Bunting Work Phone: [facility] 09-13-2021 14:17-0500 Inhaled oxygen flow rate 8 L/min DO Migue Bunting Work Phone: [facility] 09-13-2021 11:11-0500 Body height 163.19 cm DO Migue Bunting Work Phone: [facility] 09-13-2021 11:11-0500 Body mass index (BMI) [Ratio] 24.4 kg/m2 DO Migue Bunting Work Phone: [facility] 09-13-2021 11:11-0500 Body weight 65 kg DO Migue Bunting Work Phone: [facility] 08-05-2021 15:40-0500 Body height 163.19 cm Juan David Jose Other [employer] Other 08-05-2021 15:40-0500 Body mass index (BMI) [Ratio] 23.84 kg/m2 Juan David Damon Other [employer] Other 08-05-2021 15:40-0500 Body weight 63.5 kg Juan David Damon Other [employer] Other 07-20-2021 13:15-0500 Body height 163.19 cm Carly Yamileth Other [employer] Other 07-20-2021 13:15-0500 Body mass index (BMI) [Ratio] 23.84 kg/m2 Carly Yamileth Other [employer] Other 07-20-2021 13:15-0500 Body temperature 98.6 [degF] Carly Nguyen Other [employer] Other 07-20-2021 13:15-0500 Body weight 63.5 kg Carly Yamileth Other [employer] Other 07-20-2021 13:15-0500 Respiratory rate 18 /min Carly Yamileth Other [employer] Other 07-20-2021 13:15-0500 SaO2% (BldA) [Mass fraction] 98 % Carly Nguyen Other [facility] Other 05-21-2021 11:00-0400 Body height 163.19 cm Ever [employer] Other [facility] Other 05-21-2021 11:00-0400 Body mass index (BMI) [Ratio] 25.89 kg/m2 [employer] Other [email or web address] [facility] [employer] Other 05-21-2021 11:00-0400 Body weight 68.95 kg [employer] Other [facility] [employer] Other 05-21-2021 11:00-0400 Diastolic blood pressure 80 mm[Hg] [employer] Other [facility] Other 05-21-2021 11:00-0400 Systolic blood pressure 110 mm[Hg] [employer] Other [employer] Other Encounters Encounter Date Encounter Type Care Provider Facility Start: 03-01-2023 End: 03-01-2023 ambulatory Migue Bunting Facility:[facility] Start: 07-08-2022 End: 07-08-2022 ambulatory Juan David Jose Other [facility] [employer] Other Start: 07-08-2022 Office outpatient vi sit 15 minutes Juan David Jose [facility] Start: 07-06-2022 End: 07-06-2022 ambulatory Migue Bunting Facility:[facility] Start: 05-11-2022 End: 05-11-2022 ambulatory Migue Bunting Facility:[facility] Start: 05-11-2022 End: 05-11-2022 ambulatory DO Migue Bunting Work Phone: [facility] Work Phone: Start: 05-11-2022 End: 05-11-2022 Patient encounter procedure DO Migue Bunting Work Phone: [facility] Start: 12-07-2021 End: 12-07-2021 ambulatory Juan David Jose Other [employer] Other Start: 12-07-2021 Follow-up encounter Juan David Jose [facility] Start: 12-06-2021 End: 12-06-2021 Patient encounter procedure DO Migue Bunting Work Phone: [facility]-XRay [facility] Start: 10-12-2021 End: 10-12-2021 ambulatory Juan David Jose Other [employer] Other Start: 10-12-2021 Postop follow up vis it related to original px Juan David Jose [facility] Start: 10-11-2021 End: 10-11-2021 Patient encounter procedure DO Migue Bunting Work Phone: [facility] Start: 09-13-2021 End: 09-14-2021 Admission to same day surgery center Juan David Jose Other [facility]Surgery [facility] Start: 09-13-2021 End: 09-13-2021 ambulatory Juan David Jose Other [employer] Other Start: 08-05-2021 End: 08-05-2021 ambulatory Juan David Jose Other [employer] Other Start: 08-05-2021 Office outpatient vi sit 40 minutes Juan David Jose [facility] Start: 07-20-2021 End: 07-20-2021 ambulatory CARLY NGUYEN Facility: Start: 07-20-2021 Office outpatient vi sit 15 minutes Carly Nguyen [facility] Start: 05-27-2021 (Procedure) Billie Apple [facility] Start: 05-21-2021 Office consultation new/estab patient 60 min [employer] [facility] Procedures Date Procedure Procedure Detail Performing Clinician Start: 12-06-2021 X-ray of cervical spine DO Migue [employer] Work Phone: Start: 10-11-2021 X-ray of cervical spine DO Migue [employer] Work Phone: Start: 09-13-2021 OR Cervical Fusion Anterior (Not Applicable) DO Migue [employer] Work Phone: Start: 09-13-2021 X-ray of cervical spine DO Migue [employer] Work Phone: Plan of Treatment Date Care Activity Detail Author Patient referral [facility] Work Phone: Payers Date Payer Category Payer Self-pay [id number] 1980 Unknown [id number] 2.16.84 [id number] 1980 Unknown [id number] 2.16.84 [id number] 1959 Unknown [id number] 1961 Unknown [id number] Unknown [id number] Unknown [id number] 2.16.8 [id number] Unknown [id number] 2.16.8 [id number] Unknown [id number] 2.16.8 [id number] Social History Date Type Detail Facility Start: 09-13-2021 Tobacco smoking status NHIS Ex-smoker (finding) [facility] Start: 1980 Sex Assigned At Female F [facility] Sex Assigned At Sex Assigned At Bir th [facility] [employer] Other Medical Equipment Procedure Code Equipment Code Equipment Original Text Equipment Identifier Dates Cervical total intervertebral disc prosthesis, modular [id number] FDA Start: 09-13-2021 Goals Date Patient Goal Desired Activity /State Functional Status Date Assessment Result Facility 09-14-2021 Functional status Patient is Pro gressing Toward Baseline [facility] Work Phone: Mental Status Date Assessment Result Facility 09-14-2021 Cognitive function Cognitive Sta tus Patient is Progressing Toward Baseline [facility] Work Phone: Clinical Notes 03-19-2021 to 07-08-2022 [...] see her again in August for follow-up. [employer] Other 05-03-2022 Evaluation note* Encounter Date Diagnosis [...] Tendinitis of left forearm (ICD-10 - M77.8) [employer] Other 03-08-2022 Evaluation note* Encounter Date Diagnosis [...] again in 2 months with an x-ray. [employer] Other 12-30-2021 Evaluation note* Encounter Date Diagnosis [...] has significant left C7 pain and weakness. [employer] Other 12-14-2021 Evaluation note* Encounter Date Diagnosis [...] Patient care instructions given in writting by [facility] Care At Home document. [employer] Other 10-15-2021 Evaluation note* Encounter Date Diagnosis [...] pain management or physical therapy, but notes hospice care transitions coordinator as well as massage therapy. Prior to [...] negative findings were considered in medical decision-making. [employer] Other 08-14-2021 NoteSend Summary: Discharge Summary Providers: Provider RoleProvider Name AttendingLuis Laurent Christopher Note Recipients: Migue Woo MD - [id number] [] Discharge: Summary: Admission Date: .19-Mar-2021 02:27:00 Discharge Date: 20-Mar-2021 Attending Physician at Discharge: Luis Laurent Admission Reason: Back pain(1) Final Discharge Diagnoses: 1. Acute on chronic back pain Procedures: none Condition at Discharge: Fair Disposition at Discharge: .Home Vital Signs: T PRBPSpO2 Value36.291573055/6798% on RA Date/Time03/20 14: 14: 14: 14: 14:19 Range(35.8C - 36.7C ) (56 - 101 ) (18 - 18 ) (101 - 127 )/ (67 - 83 ) (93% - 98% ) Date: Weight/Scale Type:Height: 19-Mar-2021 19:0166 kg / edvlrddz256.1 cm Physical Exam: General: Alert and oriented [...] potentially consider pain management. Patient agreeable to [facility] service to make pain management consult. -Patient [...] Data Referenced From History and Physical 19-Mar-2021 15:43[facility]08-13-2021 NoteHistory of Present Illness: /Lactating: Are You [...] been reviewed. Objective: Objective Information: T PRBPSpO2 Value36.07096055/7898% Date/Time03/19 2:32813 11: 10:19813 11: 10:19 Range(36.2C - 36.2C ) (53 - 86 ) (14 - 18 ) (117 - 158 )/ (78 - 102 ) (94% - 100% ) T PRBPSpO2 Value36.52516257/7898% Date/Time03/19 2:328 11: 10: 11: 10:19 Range(36.2C [...] WBC Plt 4.7 -------- (more content not included)...[facility]-13-2021 History general Narrative - Reported* Type Description Date Medical History back pain Surgical History nasal surgery Surgical History tonsillectomy Hospitalization History back pain 03/19/21 [facility] [employer] Other Evaluation note* Diagnosis Onset Date Resolution Status Cervical disc disorder at C6-C7 level with radiculopat hy acute [facility] Work Phone: [facility] noteNo [facility]St[facility] [employer] Other Evaluation noteNo assessment information available [facility] Work Phone: [facility] Work Phone: Summary Purpose Family History [...] syndro me on right (G56.01) Referral Organization [facility] Referring Provider First Name Juan David Referring Provider Last Name Damon Referring Provider Specialty Neurologica l Surgery Referred Organization [facility] Referred Provider Kiran Yo Referred Address [address],[place],[address] Referred Provider Specialty Neurology Referral Priority Routine Reason *FU 12/14 Evaluate and Treat Left Forearm Extensor Tendinitis Diagnosis 1 Tendinitis of left f orearm (M77.8) Referral Organization [facility] Referring Provider First Name Juan David Referring Provider Last Name Damon Referring Provider Specialty Neurologica l Surgery Referred Organization [facility] Referred Provider Neto Martin Jr [place] Address ,[place], [place],[address] Referred Provider Specialty Orthopedic S urgery Referral Priority Routine General Notes Leonora Umana 022 12:15:09 PM >Received and sent P2P today Additional Source Comments INFORMATION SOURCE (unrecogn ized section and content) DATE CREATED AUTHOR 01/14/2021 [facility] DATE CREATED AUTHOR AUTHOR'S ORGANIZ ATION 04/26/2021 [facility] DATE CREATED AUTHOR AUTHOR'S ORGANIZ ATION 08/20/2021 [facility] DATE CREATED AUTHOR AUTHOR'S ORGANIZ ATION 03/06/2023 [facility] Care Teams (unrecognized sec tion and content) Team Status: Inactive Member Role Status Dates Migeu Woo , DO Primary Care Provider, Attending Tonja munoz Active Team Status: Active Member Role Status Dates Migue Woo , DO Primary Care Provider Active Team Status: Inactive Member Role Status Dates Migue Woo , DO Primary Care Provider Active Juan David Jose MD Attending Provider Active Team Status: Inactive Member Role Status Dates Migeu Woo , DO Primary Care Provider Active [...] BE BASED ON THE PRIMARY CLINICAL RECORDS. [facility] [employer] ([email or web address]) [facility]. provides no warranty or guarantee of the accuracy or completeness of information in this document.
[2023-11-13 22:52] VITALS: BMI 22.2
[2023-11-13 22:53] VITALS: BP 128/80; PULSE 67; TEMP 36.7; O2SAT 97
[2023-11-13] MEDS: MORPHINE SULFATE 2 MG/ML SYRINGE IV (23:26)
[2023-11-14] VITALS (8 sets, daily range): BP systolic 116–121; BP diastolic 51–69; PULSE 58–97; TEMP 36.6–36.8; O2SAT 62–99
[2023-11-14] MEDS: MORPHINE SULFATE 2 MG/ML SYRINGE IV ×3 (02:51→15:10)
[2023-11-14 05:22] LABS: Basophils Percent Auto 0.3 % (0.2-2.0); Eosinophils Percent Auto 0.1 % (0.9-7.0); Hematocrit 36.4 % (36.0-48.0); Immature Granulocytes Abs Auto 0.06 10^3/uL (0.00-0.03); Immature Granulocytes Pct Auto 0.5 % (0.0-0.5); Lymphocytes Absolute Auto 1.1 10^3/uL (1.2-3.8); Lymphocytes Percent Auto 9.5 % (20.5-60.0); Mean Corpuscular Hemoglobin 32.1 pg (26.7-34.0); Mean Corpuscular Volume 97.3 fL (81.0-99.0); Mean Platelet Volume 9.8 fL (9.5-13.5); Monocytes Absolute Auto 0.2 10^3/uL (0.3-0.8); Monocytes Percent Auto 1.3 % (1.7-12.0); Neutrophils Absolute Auto 10.6 10^3/uL (1.4-6.5); Neutrophils Percent Auto 88.3 % (43.0-75.0); Platelet Count 260 10^3/uL (150-450); Red Blood Count 3.74 10^6/uL (4.20-5.40); Red Cell Distribution Width 12.3 % (11.0-15.0)
[2023-11-14 05:46] LABS: Alanine Aminotransferase 13 U/L (14-59); Albumin Globulin Ratio 1.4; Albumin Level 4.1 g/dL (3.4-5.0); Alkaline Phosphatase 65 U/L (46-116); Anion Gap 16.4; Aspartate Amino Transferase 13 U/L (15-37); BUN Creatinine Ratio 14.8; Bilirubin Total 0.9 mg/dL (0.2-1.0); Calcium 9.1 mg/dL (8.5-10.1); Carbon Dioxide 22.9 mmol/L (21.0-32.0); Chloride 102 mmol/L (98-107); Estimated GFR (African America >60 (>=60); Estimated GFR (Non-African Ame >60 (>=60); Glucose 138 mg/dL (74-106); Potassium 4.3 mmol/L (3.5-5.1); Sodium 137 mmol/L (136-145); Total Protein 7.1 g/dL (6.4-8.2)
[2023-11-14] MEDS: METHYLPREDNISOLONE SOD SUCC PF 125 MG/2 ML VIAL 60 MG IVP ×2 (09:44→15:09)
[2023-11-14] MEDS: METHOCARBAMOL 500 MG TABLET 750 MG PO ×2 (10:34→16:30)
[2023-11-14] MEDS: OXYCODONE HCL/ACETAMINOPHEN 5MG/325MG 1 TAB PO ×2 (11:33→16:30)
--- NOTE | 2023-11-14 11:41 | CM.NOTE ---
Rounds made with Dr. Raymundo, will add a muscle relaxer for pt. Discussed with pt if new medications make pain tolerable and she is able to ambulate with PT, she can discharge to home.
--- NOTE | 2023-11-14 12:09 | PM.HP ---
HPI H&P: HPI History of Present Illness Chief complaint: Intractable Back Pain Lumbar Radiculopathy Narrative: 43 y/o female with a history of lumbar DDD presents to ER with back pain and radicular symptoms. Patient using a chain saw when felt back give and developed severe pain in legs. Pain radiated into bilateral gluteal region and into both legs but right worse than left. Weakness in legs and hard to walk. To ER due to severe pain. CT showed degenerative changes but no stenosis or pinched nerves. Not able to control pain and admitted. Feels a little better this am. Continues to have pain and radicular symptoms. Similar episodes in the past and responded well to steroids. Prior injections with last about 1 year ago and worked well. Opioid HPI Opioid Management Most Recent Opioid Data: Last Pain Scale 7 11/14/23 11:33 Last Pain Assessment 11/14/23 11:21 Last MAR Pain Assessment 11/14/23 11:33 Last ORT Total Score 1 11/13/23 22:52 Last ORT Risk Category Low Risk 11/13/23 22:52 Review of Systems ROS Constitutional Denies: fever, chills or night sweats Cardiovascular Denies: chest pain, palpitations or edema Respiratory Denies: shortness of breath, cough or wheezing Gastrointestinal Denies: abdominal pain, nausea, vomiting or diarrhea Genitourinary Denies: painful urination Musculoskeletal Reports: back pain and extremity pain PFSH PFSH Medical History (Updated 11/14/23 @ 09:05 by Chester Raymundo MD) Fracture of hand ?S62.90XA - Unspecified fracture of unspecified wrist and hand, initial encounter for closed fracture (ICD-10) Low back pain ?M54.50 - Low back pain, unspecified (ICD-10) Cervical stenosis of spine ?M48.02 - Spinal stenosis, cervical region (ICD-10) Degenerative disc disease Herniated disc Surgical History (Updated 11/13/23 @ 23:36 by Jerri Davidson RN) History of back surgery ?Z98.890 - Other specified postprocedural states (ICD-10) Family History (Updated 11/13/23 @ 22:54 by Jerri Davidson, CATHY) Father Hyperlipemia Brother Hyperlipemia Social History (Updated 11/13/23 @ 23:36 by Jerri Davidson, CATHY) Within the past year, how often did you have a drink containing alcohol: 2-4 times a month Within the past year, how many standard drinks containing alcohol did you have on a typical day: 1 or 2 Within the past year, how often did you have six or more drinks on one occasion: never Total score: 0 Score interpretation: A score less than 3 is consistent with normal alcohol consumption. Smoking status: Former smoker Non-prescribed substance use: denies use Highest level of school completed/degree received: Bachelor's degree Are you now , , , , never or living with a partner: Little interest or pleasure in doing things: not at all Feeling down, depressed, or hopeless: not at all Feel stressed/tense/nervous/anxious/difficulty sleeping: not at all Do you think of yourself as: lesbian/melo/homosexual Gender Identity: female Meds Home Medications and Allergies Home Medications ?Medication ?Instructions ?Recorded ?Confirmed ?Type naproxen 500 mg tablet 500 mg PO Q12H PRN pain 11/13/23 11/13/23 History Allergies Allergy/AdvReac Type Severity Reaction Status Date / Time No Known Drug Allergies Allergy Verified 05/05/23 15:16 Exam Constitutional Vital Signs, click to edit/add: Last Vital Signs Temp 98.2 F 11/14/23 08:30 Pulse 69 11/14/23 08:30 Resp 18 11/14/23 08:30 BP 121/51 11/14/23 08:30 Pulse Ox 99 11/14/23 10:00 O2 Del Method Room Air 11/14/23 08:30 Documenting provider has reviewed patient's vital signs: yes Common normals: no apparent distress, oriented x3 and alert HENMT Common normals: normocephalic Eye Common normals: PERRL and EOMs intact bilaterally Respiratory Common normals: normal respiratory effort and clear to auscultation bilaterally Cardio Common normals: regular rate, regular rhythm, no gallops, no murmurs and no rub GI Common normals: Normal to inspection, nondistended, normoactive bowel sounds present and non-tender Back & Pelvis General back: tenderness (TTP over lower lumbar region) Extremity Common normals: no pedal edema Results Labs Labs: Short CBC 11/14/23 Range/Units 04:54 WBC 12.0 H (4.0-11.0) 10^3/uL Hgb 12.0 (12.0-16.0) g/dL Hct 36.4 (36.0-48.0) % Plt Count 260 (150-450) 10^3/uL BMP 11/14/23 04:54 Sodium 137 Potassium 4.3 Chloride 102 Carbon Dioxide 22.9 BUN 13.0 Creatinine 0.88 Glucose 138 H Calcium 9.1 Liver Function 11/14/23 Range/Units 04:54 Total Bilirubin 0.9 (0.2-1.0) mg/dL AST 13 L (15-37) U/L ALT 13 L (14-59) U/L Alkaline Phosphatase 65 (46-116) U/L Albumin 4.1 (3.4-5.0) g/dL Assessment and Plan Assessment and Plan (1) Acute lumbar radiculopathy: (2) Lumbar degenerative disc disease: (3) Intractable back pain: Plan Presented with exacerbation of pain and start solu-medrol. Use robaxin and percocet PRN. Start PT/OT for pain. If pain controlled and ambulating well possible discharge later this afternoon.
[2023-11-14] MEDS: KETOROLAC TROMETHAMINE 30 MG/ML VIAL IVP (13:35)
--- NOTE | 2023-11-15 15:48 | CM.DCFOLLOWU ---
1st attempt discharge follow up call, no answer 11/15/23
--- NOTE | 2023-11-16 15:03 | CM.DCFOLLOWU ---
2nd attempt discharge follow up call on 11/16/23, no answer
--- NOTE | 2023-11-17 14:00 | CM.DCFOLLOWU ---
3rd attempt discharge follow up call made on 11/17/23, no answer 3 attempts made, no answer each time
== END 2023-11-14 17:03 | disposition home or self-care (01) ==
LOC: ER 22:24 → MS 22:45
PROVIDERS: Nurse Practitioner Acute Care; Admitting Provider Family Medicine; Emergency Provider Internal Medicine; PCP Nurse Practitioner Family; Visit Provider Family Medicine
DX: M51.16 Intervertebral disc disorders with radiculopathy, lumbar region (principal); M54.9 Dorsalgia, unspecified; Z98.890 Other specified postprocedural states; Z87.891 Personal history of nicotine dependence
CPT/HCPCS: 36415; 72131; 80053; 85025; 96372; 96374; 96375; 96376; 97110; 97161; 99285; G0378; J1170; J2919

== ENCOUNTER 2023-12-23 08:31 | Emergency (ER) | payer BC, SELFPAY ==
[2023-12-23 08:34] VITALS: BP 137/112; PULSE 175; TEMP 37; O2SAT 100; BMI 22.3
[2023-12-23 08:35] VITALS: PULSE 188
--- OUTSIDE RECORDS SUMMARY | 2023-12-23 08:38 | XMS_ITS | CCD ---
Author Organization [facility] Care Team Providers Care Bed Worker Name Role Phone RUFINAC, DR LANDIN Attending Unavailable MISMatilda, DR LANDIN Admitting Unavailable CARLY NGUYEN Admitting Unavailable CARLY NGUYEN Consulting Unavailable CARLY NGUYEN Attending Unavailable Bunting, DO [place] Primary Care Provider MD Juan David Jose Attending Provider MD Je Maradiaga Attending Provider [phone] Ever Apple Unavailable Juan David Jose Unavailable [...] n 03-01-2023 MM screening mammo BI w/CAD [facility] [address] [place] [id number] Mammography Report Signed Patient: Arabella Thornton MR#: [id number] : 1980 Acct:[id number] Age/Sex: 42 / F ADM Date: 03/01/23 Loc: [place] Room: Type: [facility] Attending Dr: Migue Woo DO Copies to: [...] Graves Jr., D.OChelle03/01/2023 3:00 PM Dictation Location: [facility] Transcribed By: [facility] 03/01/23 1500 Dictated By: Raghu Graves Jr, DO 03/01/23 1500 Signed By: 03/01/23 1500 Normal [facility] XR cerv spine AP/LAT/FLX/EXT on 07-06-2022 XR cerv spine AP/LAT/FLX/EXT [address] [address] XRay Report Signed Patient: Arabella Thornton MR#: [id number] : 1980 Acct:[id number] Age/Sex: 42 / F ADM Date: 07/06/22 Loc: XD Room: Type: [facility] Attending Dr: Juan David Jose MD Copies [...] Adelina Wheeler M.D.07/06/2022 3:49 PM Dictation Location: [place] [address] Transcribed By: [facility] 07/06/22 1549 Dictated By: Adelina Wheeler MD 07/06/22 1547 Signed By: 07/06/22 1549 [facility] Albumin [Mass/volume] in Ser um or PlasmaOrdered By: Migue Woo on 05-11-2022 Albumin [Mass/Vol] 3.9 g/dL 3.2-5.5 [facility] Cholesterol [Mass/volume] in Serum or PlasmaOrdered By: Migue Woo on 05-11-2022 Cholesterol [Mass/Vol] 164 mg/dL 140-200 [facility] Comment on above: Chol less than 200 m g/dl low riskChol 201-239 mg/dl borderline riskChol 240 mg/dl and greater high risk Cholesterol in LDL Calc [Mas s/Vol]Ordered By: Migue Woo on 05-11-2022 Cholesterol in LDL [Mass/Vol] 92 mg/dL 0-100 [facility] Comment on above: LDL ATP III CLASSIFI CATIONLDL less than 100 mg/dL OptimalLDL 100-129 mg/dL Near or above optimalLDL 130-159 mg/dL Borderline highLDL 160-189 mg/dL HighLDL greater than 189 mg/dL Very high Cholesterol in VLDL Calc [Ma ss/Vol]Ordered By: Migue Woo on 05-11-2022 Cholesterol in VLDL [Mass/Vol] 9 mg/dL [facility] Comprehensive Metabolic Pane dora 05-11-2022 Albumin [Mass/Vol] 3.9 g/dL Normal 3.2-5.5 [facility] Comment on above: Performed By: #### C MP, LIPID #### [facility] [address] Albumin/Globulin [Mass ratio] 1.6 {ratio} Normal [facility] Comment on above: Performed By: #### C MP, LIPID #### [facility] [address] ALP [Catalytic activity/Vol] 68 U/L Normal 32-92 [facility] Comment on above: Performed By: #### C MP, LIPID #### [facility] [address] ALT [Catalytic activity/Vol] 12 U/L Normal 10-60 [facility] Comment on above: Performed By: #### C MP, LIPID #### [facility] [address] [place] [address] [place] Anion gap [Moles/Vol] 11.5 mmol/L Normal 6.0-15.0 [facility] Comment on above: Performed By: #### C MP, LIPID #### [facility] [address] AST [Catalytic activity/Vol] 14 U/L Normal 10-42 [facility] Comment on above: Performed By: #### C MP, LIPID #### [facility] [address] [place] [address] [place] Bilirubin [Mass/Vol] 0.5 mg/dL Normal 0.3-1.2 [facility] Comment on above: Performed By: #### C MP, LIPID #### [facility] [address] Calcium [Mass/Vol] 8.6 mg/dL Normal 8.2-10.2 [facility] Comment on above: Performed By: #### C MP, LIPID #### [facility] [address] Chloride [Moles/Vol] 102 mmol/L Normal 95-114 [facility] Comment on above: Performed By: #### C MP, LIPID #### [facility] [address] [place] [address] CO2 [Moles/Vol] 25.3 mmol/L Normal 22.0-30.0 [facility] Comment on above: Performed By: #### C MP, LIPID #### [address] Creatinine [Mass/Vol] 0.65 mg/dL Normal 0.44-1.03 [facility] Comment on above: Performed By: #### C MP, LIPID #### [address] Estimated GFR ( Jessica > 60 [facility] Comment on above: Result Comment: GFR estimated reference range: According to KDOQI guidelines, <60 ml/min/1.73m2 is sufficient to diagnose a patient with chronic kidney disease. Performed By: #### C MP, LIPID #### [place] [address] [place] Estimated GFR (Non- Am > 60 Normal [facility] Comment on above: Performed By: #### C MP, LIPID #### [facility] [address] [place] [address] [place] Globulin (S) [Mass/Vol] 2.5 g/dL [facility] Comment on above: Performed By: #### C MP, LIPID #### [facility] [address] [place] [address] [place] Glucose [Mass/Vol] 95 mg/dL Normal 70-100 [facility] Comment on above: Result Comment: [place] Glucose Reference Range is dependent on time and content of last meal. Glucose of more than 200 mg/dL in a nonstressed, ambulatory subject supports the diagnosis of Diabetes Mellitus. ADA recommended reference range Performed By: #### C MP, LIPID #### [facility] [address] [place] [address] [place] Potassium [Moles/Vol] 3.8 mmol/L Normal 3.5-5.1 [facility] Comment on above: Performed By: #### C MP, LIPID #### [facility] [address] [place] [address] [place] Protein [Mass/Vol] 6.4 g/dL Normal 6.1-7.9 [facility] Comment on above: Performed By: #### C MP, LIPID #### [facility] [address] [place] [address] [place] Sodium [Moles/Vol] 135 mmol/L Low 136-146 [facility] Comment on above: Performed By: #### C MP, LIPID #### [facility] [address] [place] [address] [place] Urea nitrogen [Mass/Vol] 5 mg/dL Low 9-23 [facility] Comment on above: Performed By: #### C MP, LIPID #### [facility] [address] [place] [address] [place] Creatinine and Glomerular fi ltration rate.predicted panel (S/P/Bld)Ordered By: Migue Woo on 05-11-2022 Creatinine [Mass/Vol] 0.65 mg/dL 0.44-1.03 [facility] Estimated glomerular filtrat ion rate (GFR) non- AmericanOrdered By: Migue Woo on 05-11-2022 GFR/1.73 sq M.predicted among non-blacks MDRD (S/P/Bld) [Vol rate/Area] > 60 mL/Min [facility] Globulin Calc (S) [Mass/Vol] Ordered By: Migue Woo on 05-11-2022 Globulin (S) [Mass/Vol] 2.5 g/dL [facility] Lipid Panelon 05-11-2022 Cholesterol [Mass/Vol] 164 mg/dL Normal 140-200 [facility] Comment on above: Result Comment: Chol less than 200 mg/dl low risk Chol 201-239 mg/dl borderline risk Chol 240 mg/dl and greater high risk Performed By: #### C MP, LIPID #### [facility] [address] Cholesterol in HDL [Mass/Vol] 62 mg/dL Normal 35-85 [facility] Comment on above: Result Comment: HDL CHOL ATP-III CLASSIFICATION Cardiovascular Risk HDL > or equal to 60 mg/dL LOW HDL < 40 mg/dL HIGH Performed By: #### C MP, LIPID #### [facility] [address] Cholesterol.total/Chol esterol in HDL [Mass ratio] 2.6 {ratio} Normal <5.0 [facility] Comment on above: Result Comment: PERF ORMED BY: [place] [address] PATHOLOGIST TAX ACCOUNTANT COLLEEN HEARN M.D. Performed By: #### C MP, LIPID #### [address] LDL Cholesterol,Calculated 92 mg/dL Normal 0-100 [facility] Comment on above: Result Comment: LDL ATP III CLASSIFICATION LDL less than 100 mg/dL Optimal LDL 100-129 mg/dL Near or above optimal LDL 130-159 mg/dL Borderline high LDL 160-189 mg/dL High LDL greater than 189 mg/dL Very high Performed By: #### C MP, LIPID #### [facility] [address] [place] [address] [place] Triglyceride w/Reflex 49 mg/dL Normal 35-149 [facility] Comment on above: Result Comment: TRIG ATP III CLASSIFICATION TRIG less than 150 mg/dL Normal TRIG 150-199 mg/dL Borderline high TRIG 200-500 mg/dL High TRIG greater than 500 mg/dL Very high Standard traceable to the Center for Disease Conrtrol and Prevention (CDC) test method. Performed By: #### C MP, LIPID #### [facility] [address] VLDL CHOLESTEROL 9 mg/dL Normal [facility] Comment on above: Performed By: #### C MP, LIPID #### [facility] [address] No Panel InformationOrdered By: Migue Woo on 05-11-2022 Estimated GFR () > 60 mL/Min [facility] Comment on above: GFR estimated refere nce range: According to KDOQI guidelines, <60 ml/min/1.73m2 is sufficient to diagnose a patient with chronic kidney disease. Pharmacy Creatinine Clearance (Chem N/A [facility] Protein [Mass/volume] in Ser um or PlasmaOrdered By: Migue Woo on 05-11-2022 Protein [Mass/Vol] 6.4 g/dL 6.1-7.9 [facility] Serum or plasma alanine bolivar otransferase measurement without P-5'-P (enzymatic activiOrdered By: Migue Woo on 05-11-2022 ALT No additional P-5'-P [Catalytic activity/Vol] 12 U/L [facility] Serum or plasma albumin/glob ulin mass ratioOrdered By: Migue Woo on 05-11-2022 Albumin/Globulin [Mass ratio] 1.6 {ratio} [facility] Serum or plasma alkaline nataliia sphatase measurement (enzymatic activity/volume)Ordered By: Migue Woo on 05-11-2022 ALP [Catalytic activity/Vol] 68 U/L 3292 [facility] Serum or plasma anion gap de terminationOrdered By: Migue Woo on 05-11-2022 Anion gap [Moles/Vol] 11.5 mmol/L 6.0-15.0 [facility] Serum or plasma aspartate am inotransferase measurement (enzymatic activity/volume)Ordered By: Migue Bunnayeli on 05-11-2022 AST [Catalytic activity/Vol] 14 U/L [facility] Serum or plasma calcium attila urement (mass/volume)Ordered By: Migue Woo on 05-11-2022 Calcium [Mass/Vol] 8.6 mg/dL 8.2-10.2 [facility] Serum or plasma chloride beba surement (moles/volume)Ordered By: Migue Woo on 05-11-2022 Chloride [Moles/Vol] 102 mmol/L 95-114 [facility] Serum or plasma glucose attila urement (mass/volume)Ordered By: Migue Woo on 05-11-2022 Glucose [Mass/Vol] 95 mg/dL 70-100 [facility] Comment on above: ADA recommended refe rence rangeRandom Glucose Reference Range is dependent on time and content of last meal. Glucose of more than 200 mg/dL in a nonstressed, ambulatory subject supports the diagnosis of Diabetes Mellitus. Serum or plasma high density lipoprotein (HDL) cholesterol measurementOrdered By: Migue Woo on 05-11-2022 Cholesterol in HDL [Mass/Vol] 62 mg/dL 35-85 [facility] Comment on above: HDL CHOL ATP-III CLA SSIFICATION Cardiovascular RiskHDL > or equal to 60 mg/dL LOWHDL < 40 mg/dL HIGH Serum or plasma potassium me asurement (moles/volume)Ordered By: Migue Woo on 05-11-2022 Potassium [Moles/Vol] 3.8 mmol/L 3.5-5.1 [facility] Serum or plasma sodium measu rement (moles/volume)Ordered By: Migue Woo on 05-11-2022 Sodium [Moles/Vol] 135 mmol/L 136-146 [facility] Serum or plasma total biliru bin measurement (mass/volume)Ordered By: Migue Woo on 05-11-2022 Bilirubin [Mass/Vol] 0.5 mg/dL 0.3-1.2 [facility] Serum or plasma total carbon dioxide measurement (moles/volume)Ordered By: Migue Woo on 05-11-2022 CO2 [Moles/Vol] 25.3 mmol/L 22.0-30.0 [facility] Serum or plasma total choles terol/high density lipoprotein (HDL) cholesterol mass ratOrdered By: Migue Woo on 05-11-2022 Cholesterol.total/Chol esterol in HDL [Mass ratio] 2.6 {ratio} <5.0 [facility] Serum or plasma urea nitroge n measurement (mass/volume)Ordered By: Migue Woo on 05-11-2022 Urea nitrogen [Mass/Vol] 5 mg/dL 9-23 [facility] Triglyceride [Mass/volume] i n Serum or PlasmaOrdered By: Migue Woo on 05-11-2022 Triglyceride [Mass/Vol] 49 mg/dL 35-149 [facility] Comment on above: TRIG ATP III CLASSIF ICATIONTRIG less than 150 mg/dL NormalTRIG 150-199 mg/dL Borderline highTRIG 200-500 mg/dL High TRIG greater than 500 mg/dL Very highStandard traceable to the Center for Disease Conrtrol and Prevention (CDC) test method. HCG ( test) IA.rapi d Ql (U)Ordered By: Allan Wills on 09-13-2021 HCG ( test) Ql (U) Negative [facility] COVID Quick Testingon 2020 Result Negative [employer] Other Covid-19 PCR ([facility])on 07-07 SARS-CoV-2 (COVID-19) RNA JUN+probe Ql (Unsp spec) Detected Critically abnormal NOT DETECTED [facility] Comment on above: Result Comment: This test is not yet approved or cleared by the [place] FDA. When there are no FDA-approved or cleared tests available, and other criteria are met, FDA can make tests available under an emergency access mechanism called an Emergency Use Authorization (EUA). The EUA for this test is supported by the [place] of Health and Human Service's (HHS's) declaration [...] used). Performed By: #### C VDTB #### [facility] [address] [place] [address] [address] Alejandra Sherman Discharge [id number] Discharge Profile2 Discharge Orders: Anticipated Discharge Date: Anticipated Discharge [id number] Anticipated Discharge Time16:54 Hospital Providers: Provider RoleProvider Name AttendingLuis Laurent Christopher DNAR: DNAR Status: none Activity: activity as tolerated. Diet: Dietregular Provider FINAL REVIEW of Orders: Final Review: Final Review of Medication Reconciliation and Orders Completedby Physician Reviewing ProviderLuis Laurent MD at 20-Mar-2021 16:56:00 Appointments: Follow-Up Appointment 01: Physician/Dept/ServiceDr Chelle Woo PCP Phone [phone] CommentsConcierge service to make appointment Order received after discharge Reached out to patient lvm & sent letter Follow-Up Appointment 02: Physician/Dept/Service Pain management Phone [phone] CommentsConcierge service to make appointment Order received after discharge Reached out to patient lvm & sent letter Electronic Signatures: Alice Horta (PT SVS REP) (Signed 22-Mar-2021 11:54) Authored: Appointments Luis Laurent) (Signed 20-Mar-2021 16:56) Authored: Discharge Orders, Provider FINAL REVIEW of Orders, Appointments, Gold Form - Label Coder Summary Last Updated: 22-Mar-2021 11:54 by Alice Horta (PT SVS REP) [facility] Order Reconciliationon 03-20 Order Reconciliation Page 1 Discharge Reconciliation Document Reconciliation Type: Discharge requested on behalf of Luis aLurent (Physician) done by Luis Laurent) Discharge - [...] ICD 10 code M54.9, Back Pain Normal [facility] Admission Risk Screen - Adul [...] AlertFor Ebola-like Symptoms: Isolate Patient and Notify Provider/Mailroom Associate For Contact: Notify Provider/Mailroom Associate Advance Directive: Advance Directive/DNRno (1) Advance Directive [...] instruction; individual instruction Cultural Considerationsnone Developmental Considerationsnone Jehovah'S Witness Considerationsnone Learning Assessment (Other Learner): Other learner availableno Depression Screen: During the past month, have you often been bothered by feeling down, depressed or hopelessno During the past month, have you often had little interest or pleasure in doing thingsno Have you had any thoughts of harming anyone elseno (2) [place] Suicide: Risk Screen Not Applicable/Able to Answerable to be screened In the Past Month: Have you wished you were or could go to sleep and not wake upno(2) In the Past Month: Have you had any actual thoughts of killing yourself no(2) Lifetime: Have you ever done, started to do, or prepared to do anything to end your lifeno [place] Suicide Risknegative Adult Nutrition Screen: Have you [...] Spiritual Screen: Are there any cultural, spiritual, quaker practices/values/needs that are important for us to knowno CAGE: Is this an injured patient at a Trauma Center ([facility]/[place] /[place]): yes (1) C: Have you ever felt you needed to Cut down on your drinking: no (1) A: Have people Annoyed you by criticizing your drinking: no (1) G: Have you ever felt Guilty about drinking: no (1) E: Have you ever felt you needed a drink first thing in the morning (Eye-shoe caser) to steady your nerves or to get rid of hangover: no (1) Vaccinations: Vaccination - Influenza Vaccination Screen: Is it flu season (between and November 04)No Vaccination - Pneumonia Vaccination Screen: Patient has received a previous pneumonia vaccine:no/unknown... Immunocompetent persons with underlying chronic conditions or reside in terminal makeup operator care facilitiesnone of these conditions Persons with Functional or Anatomic Asplenianone of these conditions Immunocompromised Personsnone of these conditions Pneumonia vaccine NOT indicated due to:patient DOES NOT have a condition that indicates vaccination patient/caregiver refusal at this time Kervin (more content not included)... Normal [facility] BASIC METABOLIC PANELon 03-07 Anion gap [Moles/Vol] 19 mmol/L Normal 10 - 20 [facility] Comment on above: Performed By: #### B MP ####[id number] [place] [address] Calcium [Mass/Vol] 10.0 mg/dL Normal 8.6 - 10.6 [facility] Comment on above: Performed By: #### B MP ####[id number] [place] [address] Chloride [Moles/Vol] 99 mmol/L Normal 98 - 107 [facility] Comment on above: Performed By: #### B MP ####[id number] [place] [address] Creatinine [Mass/Vol] 0.71 mg/dL Normal 0.50 - 1.05 [facility] Comment on above: Performed By: #### B MP ####[id number] [place] [address] GFR- AM. >60 Normal >60 [facility] Comment on above: Result Comment: CALC ULATIONS OF ESTIMATED GFR ARE PERFORMED USING THE MDRD STUDY EQUATION FOR THE IDMS-TRACEABLE CREATININE METHODS. CLIN CHEM 2007;53:766-72 Performed By: #### B MP ####[id number] [place] [address] GFR-NON AM. >60 Normal >60 [facility] Comment on above: Performed By: #### B MP ####[id number] [place] [address] Glucose [Mass/Vol] 85 mg/dL Normal 74 - 99 [facility] Comment on above: Performed By: #### B MP ####[id number] [place] [address] HCO3 (Bld) [Moles/Vol] 23 mmol/L Normal 21 - 32 [facility] Comment on above: Performed By: #### B MP ####[id number] [place] [address] Potassium [Moles/Vol] 3.3 mmol/L Low 3.5 - 5.3 [facility] Comment on above: Performed By: #### B MP ####[id number] [place] [address] Sodium [Moles/Vol] 138 mmol/L Normal 136 - 145 [facility] Comment on above: Performed By: #### B MP ####[id number] [place] [address] Urea nitrogen [Mass/Vol] 7 mg/dL Normal 6 - 23 [facility] Comment on above: Performed By: #### B MP ####[id number] [place] [address] CBC AND DIFFERENTIALon 03-19 % AUTOMATED IMMATURE GRAN 0.2 % Normal 0.0 - 0.9 [facility] Comment on above: Result Comment: Leslie ture Granulocyte Count (IG) includes promyelocytes, myelocytes and metamyelocytes but does not include bands. Percent differential counts (%) should be interpreted in the context of the absolute cell counts (cells/L). Performed By: #### C BCDF ####[id number] [place] [address] Basophils (Bld) [#/Vol] 0.03 10*3/uL Normal 0.00 - 0.10 [facility] Comment on above: Performed By: #### C BCDF ####[id number] [place] [address] Basophils/100 WBC (Bld) 0.6 % Normal 0.0 - 2.0 [facility] Comment on above: Performed By: #### C BCDF ####[id number] [place] [address] Eosinophils (Bld) [#/Vol] 0.06 10*3/uL Normal 0.00 - 0.70 [facility] Comment on above: Performed By: #### C BCDF ####[id number] [place] [address] Eosinophils/100 WBC (Bld) 1.3 % Normal 0.0 - 6.0 [facility] Comment on above: Performed By: #### C BCDF ####[id number] [place] [address] Erythrocyte distribution width (RBC) [Ratio] 12.7 % Normal 11.5 - 14.5 [facility] Comment on above: Performed By: #### C BCDF ####[id number] [place] [address] Hematocrit (Bld) [Volume fraction] 37.0 % Normal 36.0 - 46.0 [facility] Comment on above: Performed By: #### C BCDF ####[id number] [place] [address] Hemoglobin (Bld) [Mass/Vol] 12.6 g/dL Normal 12.0 - 16.0 [facility] Comment on above: Performed By: #### C BCDF ####[id number] [place] [address] Lymphocytes (Bld) [#/Vol] 1.16 10*3/uL Low 1.20 - 4.80 [facility] Comment on above: Performed By: #### C BCDF ####[id number] [place] [address] Lymphocytes/100 WBC (Bld) 24.8 % Normal 13.0 - 44.0 [facility] Comment on above: Performed By: #### C BCDF ####[id number] [place] [address] MCHC (RBC) [Mass/Vol] 34.1 g/dL Normal 32.0 - 36.0 [facility] Comment on above: Performed By: #### C BCDF ####[id number] [place] [address] MCV (RBC) [Entitic vol] 100 fL Normal 80 - 100 [facility] Comment on above: Performed By: #### C BCDF ####[id number] [place] [address] Monocytes (Bld) [#/Vol] 0.46 10*3/uL Normal 0.10 - 1.00 [facility] Comment on above: Performed By: #### C BCDF ####[id number] [place] [address] Monocytes/100 WBC (Bld) 9.8 % Normal 2.0 - 10.0 [facility] Comment on above: Performed By: #### C BCDF ####[id number] [place] [address] Neutrophils (Bld) [#/Vol] 2.96 10*3/uL Normal 1.20 - 7.70 [facility] Comment on above: Performed By: #### C BCDF ####[id number] [place] [address] Neutrophils/100 WBC (Bld) 63.3 % Normal 40.0 - 80.0 [facility] Comment on above: Performed By: #### C BCDF ####[id number] [place] [address] NUCLEATED RBC 0.0 /100 WBC Normal 0.0-0.0 [facility] Comment on above: Performed By: #### C BCDF ####[id number] [place] [address] Platelets (Bld) [#/Vol] 333 10*3/uL Normal 150 - 450 [facility] Comment on above: Performed By: #### C BCDF ####[id number] [place] [address] RBC 3.69 x10E12/L Low 4.00 - 5.20 [facility] Comment on above: Performed By: #### C BCDF ####[id number] [place] [address] WBC (Bld) [#/Vol] 4.7 10*3/uL Normal 4.4 - 11.3 [facility] Comment on above: Performed By: #### C BCDF ####[id number] [place] [address] CORONAVIRUS 2019, SCREEN ASY MPTOMATICon 08-13-2021 SARS-CoV-2 (COVID-19) RNA JUN+probe Ql (Unsp spec) Not detected Normal Not Detected [facility] Comment on above: Result Comment: . This test has received FDA Emergency Use Authorization (EUA) and has been verified by [facility] ([facility]). This test is only authorized for the duration of time that circumstances exist to justify the authorization of the emergency use of in vitro diagnostic tests for the detection of SARS-CoV-2 virus and/or diagnosis of COVID-19 infection under section 564(b)(1) of the Act, 21 U.S.C. 360bbb-3(b)(1), unless the authorization is terminated or revoked sooner. [facility] is certified under CLIA-88 as qualified to perform high complexity testing. Testing is performed in the [facility] located at [address] [place] [address]. SARS-CoV-2/Flu/RSV Multiplex Test: Fact sheet for providers: https://www.fda.gov/media/813147/download Fact sheet for patients: https://www.fda.gov/media/601597/download Performed By: #### C OVSC #### [address] [place] [address] Lab Specimen Source Nasal, Nasopharyngeal [facility] Comment on above: Performed By: #### C OVSC #### [address] 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 Please contact respective team for any questions/concerns Ortho Spine team: Sav Rodriguez, PGY-2 - [id number] Axel Wong, PGY-3 - Miguel A Cornell, PGY-4 - [id number] Attestation: Note Completion: I am a: Resident/Fellow [...] the following: I personally evaluated the patient [id number] Comments/ Additional Findings As noted She does [...] Screen - Adult Emergency 19-Mar-2021 07:32 [facility] Covid 19 Resultson 1 SARS-CoV-2 [...] You may also be contacted by the [facility] to see if any of [...] or Naproxen (Aleve) can also be used. Epyn-vvd-lyhrpgb cough and cold medicines can be used according to the instructions on the package. Some efto-ubt-bjzrrlu medicines also contain acetaminophen. Make sure you [...] water are not available, use alcohol-based hand service vehicle operator. Avoid touching your eyes, nose, and mouth [...] 24 merritt (more content not included)... [facility] NR MRI CERVICAL WOon 021 NR MRI CERVICAL WO Patient Name: ARABELLA THORNTON STUDY: MRI CERVICAL WO; 03/19/2021 1:00 pm INDICATION: Partially visualized degenerative changes on T spine MRI. COMPARISON: Thoracic spine MRI, same day ACCESSION NUMBER(S): [id number] ORDERING CLINICIAN: DAYDAY BETTS TECHNIQUE: Sagittal T1, [...] signed by: ZAC CHIN MD, PHD [facility] NR MRI L-SPINE WOon 03-19-20 21 NR MRI L-SPINE WO Patient Name: JOANNA, ARABELLA STUDY: MRI T-SPINE WO; MRI L-SPINE WO; 03/19/2021 7:28 am; 03/19/2021 7:31 am INDICATION: A 41-year-old female with weak right HF, weak bilateral DF,. COMPARISON: None. ACCESSION NUMBER(S): [id number]; [id number] ORDERING CLINICIAN: ROBERT HARP TECHNIQUE: Sagittal T1, [...] disc bulge and osteophytic spurring. 3. Limited regional sales director imaging of the cervical spine demonstrates moderate [...] stated. Electronically signed by: JASMEET ENRIQUEZ MD [facility] NR MRI T-SPINE WOon 03-19-20 21 NR MRI T-SPINE WO Patient Name: ARABELLA THORNTON STUDY: MRI T-SPINE WO; MRI L-SPINE WO; 03/19/2021 7:28 am; 03/19/2021 7:31 am INDICATION: A 41-year-old female with weak right HF, weak bilateral DF,. COMPARISON: None. ACCESSION NUMBER(S): [id number]; [id number] ORDERING CLINICIAN: ROBERT HARP TECHNIQUE: Sagittal T1, [...] disc bulge and osteophytic spurring. 3. Limited regional sales director imaging of the cervical spine demonstrates moderate [...] Electronically signed by: JASMEET ENRIQUEZ MD [facility] Order Reconciliationon 03-19 Order Reconciliation Page 1 Admission Reconciliation Document Reconciliation Type: Admission requested on behalf of Jasmeet Devries (Advanced Practice Nurse) done by Jasmeet Devries (CIRCUS HAND-FLOUR MIXER HELPER) Admission - Reconciliation: 19-Mar-2021 15:35 by: Jasmeet Devries (CIRCUS HAND-FLOUR MIXER HELPER) Home MedicationsEnteredLast Dose TakenReconciled with current Order [...] 24 Hours, Apply to Lower Back [facility] Patient Profile - Adult v2on 03-19-2021 Patient Profile - Adult v2 Profile: Initial Info: How to be Addressedkatie Spoken Language PreferredEnglish Stated Reason for Admissionacute exacerbation of pts back pain Wants Family/Rep Notified of Admissionn/a; family present Notify PCPnotify PCP Informed of Patient Visiting Rightsyes [facility] Statusemployed Patient Belongingsremains with patient Patient Belongings Remaining with Patientclothing; vision aids Medications Brought to Hospitalno General Health: Weight in kg66 kilogram(s)(1) Weight in fmd301.5 pound(s) Weight Methodactual (measured) Scale Typestanding Height [...] From History and Physical 19-Mar-2021 15:43 [facility] Provider Note - ED Care [...] Authorization (EUA) and has been verified by [facility] ([facility]). This test is only authorized for [...] disc bulge and osteophytic spurring. 3. Limited regional sales director imaging of the cervical spine demonstrates moderate [...] disc bulge and osteophytic spurring. 3. Limited regional sales director imaging of the cervical spine demonstrates moderate [...] SIGNS: T PRBP SpO2O2(LPM) %FiO2 Method 19-Mar-2021 11:00:00-04413/78 19-Mar-2021 10:19:00-0627529/87 98 19-Mar-2021 10:00:00-44685/87 19-Mar-2021 09:00:00-3883731/84 94 19-Mar-2021 08:14:00-1127176/102 96 19-Mar-2021 08:00:00-7815595/102 99 19-Mar-2021 05:38:00-0484450/82 99 19-Mar-2021 02:32:00-36.65502464/98 100 room air, no respiratory support MEDICAL [...] normal disc bulge and osteophytic spurring, limited regional sales director imaging of the cervical spine demonstrates moderate [...] stable. Previous (more content not included)... [facility] Provider Note - ED v3on [...] using speech recognition software. Minor errors in flat grinder operator may be present. Please call if questions. [...] physically pr (more content not included)... [facility] Risk Screen - Adult Emergenc [...] Learning Preferencesverbal instruction Cultural Considerationsnone Developmental Considerationsnone Jehovah'S Witness Considerationsnone Learning Assessment (Other Learner): Learning Assessment (Other Learner): Other learner availableno Pressure Injury/TB/Substance: Pressure Injury: Pressure Injury Present on Admissionno Do you have a coughno Smoking Statusnever smoker Drug Usedenies Admission Risk Screen: Significant IndicatorsComplete CAGE: CAGE: Is this an injured patient at a Trauma Center ([facility]/[place] /[place]): yes C: Have you ever felt you needed to Cut down on your drinking: no A: Have people Annoyed you by criticizing your drinking: no G: Have you ever felt Guilty about drinking: no E: Have you ever felt you needed a drink first thing in the morning (Eye-shoe caser) to steady your nerves or to get rid of hangover: no Electronic Signatures: Katherine Hager) (Signed 19-Mar-2021 07:33) Authored: Preferred Language, Advanced Directives, Family Violence Adult, Learning Assessment (Patient), Learning Assessment (Other Learner), Pressure Injury/TB/Substance, Pressure Injury, CAGE Last Updated: 19-Mar-2021 07:33 by Katherine Hager) [facility] Triage - EDon 03-19-2021 Triage [...] obeys commands Best Verbal Response: (V5) oriented [place] Score: 15 Allergies: no Patient has homicidal [...] Updated: 19-Mar-2021 02:34 by Kianna Terry (RN) [facility] Provider [place] 01-14-2021 Provider Orders [id number] 6051 [id number]#1.00OTG TIFF [facility] Coding Summaryon 09-17-2020 Coding Summary CODING DATE: [facility] STATUS: Home PAYOR: [employer] DESCRIPTION [...] Allie Clemons Date Saved: 09/17/2020 03:59 pm [facility] Provider [place] 09-17-2020 Provider Orders [id number] [id number]#1.00OTG TIFF [facility] XR Spine Lumbosacral Minimum 4 Viewson 09-16-2020 [...] MD 09/16/20 3:36 pm Technologist: LISSETTE LOVETT [facility] Vital Signs Date Time Vital Sign Value Performing Clinician Facility 07-08-2022 11:20-0500 Body height 163.19 cm Juan David Jose Other [facility] [employer] Other 07-08-2022 11:20-0500 Body mass index (BMI) [Ratio] 21.29 kg/m2 Juan David Jose Other [facility] Other 07-08-2022 11:20-0500 Body weight 56.7 kg Juan David Jose Other [employer] Other 12-07-2021 11:20-0400 Body height 163.19 cm Juan David Jose Other [facility] Other 12-07-2021 11:20-0400 Body mass index (BMI) [Ratio] 23.84 kg/m2 Juan David Jose Other [facility] [employer] Other 12-07-2021 11:20-0400 Body weight 63.5 kg Juan David Jose Other [facility] Other 10-12-2021 12:00-0500 Body height 163.19 cm Juan David Jose Other [facility] Other 10-12-2021 12:00-0500 Body mass index (BMI) [Ratio] 23.84 kg/m2 Juan David Jose Other [facility] Other 10-12-2021 12:00-0500 Body weight 63.5 kg Juan David Jose Other [employer] Other 09-14-2021 08:00-0500 Body temperature 98.7 [degF] DO Migue Bunting Work Phone: [facility] 09-14-2021 08:00-0500 Diastolic blood pressure 75 mm[Hg] DO Migue Bunting Work Phone: [facility] 09-14-2021 08:00-0500 Heart rate 64 /min DO Migue Bunting Work Phone: [facility] 09-14-2021 08:00-0500 SaO2% (BldA) [Mass fraction] 100 % DO Migue Bunting Work Phone: [facility] 09-14-2021 08:00-0500 Systolic blood pressure 185 mm[Hg] DO Migue Bunting Work Phone: [facility] 09-14-2021 04:00-0500 Respiratory rate 18 /min DO Migue Bunting Work Phone: [facility] 09-13-2021 14:17-0500 Inhaled oxygen flow rate 8 L/min DO Migue Bunting Work Phone: [facility] 09-13-2021 11:11-0500 Body height 163.19 cm DO Migue Bunting Work Phone: [facility] 09-13-2021 11:11-0500 Body mass index (BMI) [Ratio] 24.4 kg/m2 DO Migue Bunting Work Phone: [facility] 09-13-2021 11:11-0500 Body weight 65 kg DO Migue Bunting Work Phone: [facility] 08-05-2021 15:40-0500 Body height 163.19 cm Juan David Jose Other [employer] Other 08-05-2021 15:40-0500 Body mass index (BMI) [Ratio] 23.84 kg/m2 Juan David Damon Other [facility] [employer] Other 08-05-2021 15:40-0500 Body weight 63.5 kg Juan David Damon Other [employer] Other 07-20-2021 13:15-0500 Body height 163.19 cm Carly Yamlieth Other [facility] Other 07-20-2021 13:15-0500 Body mass index (BMI) [Ratio] 23.84 kg/m2 Carly Yamileth Other [employer] Other 07-20-2021 13:15-0500 Body temperature 98.6 [degF] Carly Nguyen Other [employer] Other 07-20-2021 13:15-0500 Body weight 63.5 kg Carly Yamileth Other [employer] Other 07-20-2021 13:15-0500 Respiratory rate 18 /min Carly Yamileth Other [employer] Other 07-20-2021 13:15-0500 SaO2% (BldA) [Mass fraction] 98 % Carly Nguyen Other [facility] [employer] Other 05-21-2021 11:00-0400 Body height 163.19 cm [facility] [employer] Other [facility] [employer] Other 05-21-2021 11:00-0400 Body mass index (BMI) [Ratio] 25.89 kg/m2 [employer] Other [facility] [employer] Other 05-21-2021 11:00-0400 Body weight 68.95 kg [employer] Other [facility] [employer] Other 05-21-2021 11:00-0400 Diastolic blood pressure 80 mm[Hg] [employer] Other [facility] [employer] Other 05-21-2021 11:00-0400 Systolic blood pressure 110 mm[Hg] [employer] Other [employer] Other Encounters Encounter Date Encounter Type Care Provider Facility Start: 03-01-2023 End: 03-01-2023 ambulatory Migue Bunting Facility:[facility] Start: 07-08-2022 End: 07-08-2022 ambulatory Juan David Jose Other [facility] [employer] Other Start: 07-08-2022 Office outpatient vi sit 15 minutes Juan David Jose [facility] Start: 07-06-2022 End: 07-06-2022 ambulatory Migue Bunting Facility:[facility] Start: 05-11-2022 End: 05-11-2022 ambulatory Migue Bunting Facility:[facility] Start: 05-11-2022 End: 05-11-2022 ambulatory DO Migue Bunting Work Phone: [facility] Work Phone: Start: 05-11-2022 End: 05-11-2022 Patient encounter procedure DO Migue Bunting Work Phone: [facility] [place] Start: 12-07-2021 End: 12-07-2021 ambulatory Juan David Jose Other [employer] Other Start: 12-07-2021 Follow-up encounter Juan David Jose [facility] Start: 12-06-2021 End: 12-06-2021 Patient encounter procedure DO Migue Bunting Work Phone: [facility] Start: 10-12-2021 End: 10-12-2021 ambulatory Juan David Jose Other [employer] Other Start: 10-12-2021 Postop follow up vis it related to original px Juan David Jose [facility] Start: 10-11-2021 End: 10-11-2021 Patient encounter procedure DO Migue Bunting Work Phone: [facility] Start: 09-13-2021 End: 09-14-2021 Admission to same day surgery center Juan David Jose Other [facility] Start: 09-13-2021 End: 09-13-2021 ambulatory Juan David Jose Other [employer] Other Start: 08-05-2021 End: 08-05-2021 ambulatory Juan David Jose Other [employer] Other Start: 08-05-2021 Office outpatient vi sit [address] [facility] Start: 07-20-2021 End: 07-20-2021 ambulatory CARLY NGUYEN Facility: Start: 07-20-2021 Office outpatient vi sit 15 minutes Carly Nguyen [facility] Start: 05-27-2021 (Procedure) Billie Apple [facility] Start: 05-21-2021 Office consultation new/estab patient 60 min [employer] [facility] Procedures Date Procedure Procedure Detail Performing Clinician Start: 12-06-2021 X-ray of cervical spine DO Migue RedKLEVER Work Phone: Start: 10-11-2021 X-ray of cervical spine DO Migue RedKLEVER Work Phone: Start: 09-13-2021 OR Cervical Fusion Anterior (Not Applicable) DO Migue RedKLEVER Work Phone: Start: 09-13-2021 X-ray of cervical spine DO Migue RedKLEVER Work Phone: Plan of Treatment Date Care Activity Detail Author Patient referral [facility] Work Phone: Payers Date Payer Category Payer Self-pay [id number] 1980 Unknown [id number] [id number] [id number] 1980 Unknown [id number] 2.16.84 [id number] 1961 Unknown [id number] 1961 Unknown [id number] Unknown [id number] Unknown [id number] 2.16.8 [id number] Unknown [id number] 2.16.8 [id number] Unknown [id number] 2.16.8 [id number] Social History Date Type Detail Facility Start: 09-13-2021 Tobacco smoking status NHIS Ex-smoker (finding) [facility] Start: 1980 Sex Assigned At Female F [facility] Sex Assigned At Sex Assigned At Bir th [facility] [employer] Other Medical Equipment Procedure Code Equipment Code Equipment Original Text Equipment Identifier Dates Cervical total intervertebral disc prosthesis, modular [id number] FDA Start: 09-13-2021 Goals Date Patient Goal Desired Activity /State Functional Status Date Assessment Result Facility 09-14-2021 Functional status Patient is Pro gressing Toward Baseline [facility] Work Phone: Mental Status Date Assessment Result Facility 09-14-2021 Cognitive function Cognitive Sta tus Patient is Progressing Toward Baseline [facility] Work Phone: Clinical Notes 03-19-2021 to 07-08-2022 [...] see her again in August for follow-up. [employer] Other 05-03-2022 Evaluation note* Encounter Date Diagnosis [...] Tendinitis of left forearm (ICD-10 - M77.8) [employer] Other 03-08-2022 Evaluation note* Encounter Date Diagnosis [...] again in 2 months with an x-ray. [employer] Other 12-30-2021 Evaluation note* Encounter Date Diagnosis [...] has significant left C7 pain and weakness. [employer] Other 12-14-2021 Evaluation note* Encounter Date Diagnosis [...] [facility] Care At Home document. [employer] Other 10-15-2021 Evaluation note* Encounter Date Diagnosis [...] pain management or physical therapy, but notes pet care associate as well as massage therapy. Prior to [...] negative findings were considered in medical decision-making. [employer] Other 08-14-2021 NoteSend Summary: Discharge Summary Providers: Provider RoleProvider Name AttendingLuis Laurent Christopher Note Recipients: Migue Woo MD - [id number] [] Discharge: Summary: Admission Date: .19-Mar-2021 02:27:00 Discharge Date: 20-Mar-2021 Attending Physician at Discharge: Luis Laurent Admission Reason: Back pain(1) Final Discharge Diagnoses: 1. Acute on chronic back pain Procedures: none Condition at Discharge: Fair Disposition at Discharge: .Home Vital Signs: T PRBPSpO2 Value36.677336273/6798% on RA Date/Time03/20 14: 14: 14: 14: 14:19 Range(35.8C - 36.7C ) (56 - 101 ) (18 - 18 ) (101 - 127 )/ (67 - 83 ) (93% - 98% ) Date: Weight/Scale Type:Height: 19-Mar-2021 19:0166 kg / fqzfuvlf593.1 cm Physical Exam: General: Alert and oriented [...] potentially consider pain management. Patient agreeable to [facility] to make pain management consult. [...] Data Referenced From History and Physical 19-Mar-2021 15:43[facility]08[facility] NoteHistory of Present Illness: /Lactating: [...] been reviewed. Objective: Objective Information: T PRBPSpO2 Value36.87563788/7898% Date/Time03/19 2:32813 11: 10:19813 11: 10:19 Range(36.2C - 36.2C ) (53 - 86 ) (14 - 18 ) (117 - 158 )/ (78 - 102 ) (94% - 100% ) T PRBPSpO2 Value36.08158580/7898% Date/Time03/19 2:328 11: 10: 11: 10:19 Range(36.2C [...] WBC Plt 4.7 -------- (more content not included)...[facility]08-13-2021 History general Narrative - Reported* Type Description Date Medical History back pain Surgical History nasal surgery Surgical History tonsillectomy Hospitalization History back pain 03/19/21 [facility] [employer] Other Evaluation note* Diagnosis Onset Date Resolution Status Cervical disc disorder at C6-C7 level with radiculopat hy acute [facility] Work Phone: Evaluation [facility]No [facility] [employer] Other Evaluation noteNo assessment information available [facility] Work Phone: [facility] Work Phone: Summary Purpose Family History [...] 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 Ne urosurgery Referring Provider First Name Juan David Referring Provider Last Name Damon Referring Provider Specialty Neurologica l Surgery Referred Organization [facility] Referred Provider Kiran Yo Referred Address [address] [facility],[place],[address] Referred Provider Specialty Neurology Referral Priority Routine Reason *FU 12/14 Evaluate and Treat Left Forearm Extensor Tendinitis Diagnosis 1 Tendinitis of left f orearm (M77.8) Referral Organization [facility] Ne uros[facility]gery Referring Provider First Name Juan David Referring Provider Last Name Damon Referring Provider Specialty Neurologica l Surgery Referred Organization [facility] Referred Provider Neto Martin Jr Referred Address ,[place], [place],[address] Referred Provider Specialty Orthopedic S urgery Referral Priority Routine General Notes Leonora Umana 022 12:15:09 PM >Received and sent P2P today Additional Source Comments INFORMATION SOURCE (unrecogn ized section and content) DATE CREATED AUTHOR 01/14/2021 [facility] DATE CREATED AUTHOR AUTHOR'S ORGANIZ ATION 04/26/2021 [facility] DATE CREATED AUTHOR AUTHOR'S ORGANIZ ATION 08/20/2021 [facility] DATE CREATED AUTHOR AUTHOR'S ORGANIZ ATION 03/06/2023 [facility] Care Teams (unrecognized sec tion and [...] BE BASED ON THE PRIMARY CLINICAL RECORDS. [facility] [employer] [facility]. provides no warranty or guarantee of the accuracy or completeness of information in this document.
--- NOTE | 2023-12-23 08:46 | ECG_ITS ---
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
[2023-12-23 08:51] VITALS: PULSE 106
--- NOTE | 2023-12-23 08:55 | PC.NURSE ---
IV established, stat patches placed, crash cart at bedside. HR 188 at this time. Patient started yelling stating do we know our ABC's, hold on I'm not ready. Dr. Amaro reassessed heart rate, patient back in Sinus rhythm at 105.
[2023-12-23 09:00] LABS: Basophils Absolute Auto 0.1 10^3/uL (0.0-0.1); Basophils Percent Auto 0.4 % (0.2-2.0); Eosinophils Percent Auto 0.1 % (0.9-7.0); Hematocrit 40.4 % (36.0-48.0); Hemoglobin 13.8 g/dL (12.0-16.0); Immature Granulocytes Abs Auto 0.12 10^3/uL (0.00-0.03); Immature Granulocytes Pct Auto 0.5 % (0.0-0.5); Lymphocytes Absolute Auto 2.5 10^3/uL (1.2-3.8); Lymphocytes Percent Auto 10.8 % (20.5-60.0); Mean Corpuscular HGB Conc 34.2 g/dL (29.9-35.2); Mean Corpuscular Hemoglobin 32.5 pg (26.7-34.0); Mean Corpuscular Volume 95.1 fL (81.0-99.0); Mean Platelet Volume 9.5 fL (9.5-13.5); Monocytes Absolute Auto 0.9 10^3/uL (0.3-0.8); Monocytes Percent Auto 3.9 % (1.7-12.0); Neutrophils Absolute Auto 19.1 10^3/uL (1.4-6.5); Neutrophils Percent Auto 84.3 % (43.0-75.0); Platelet Count 375 10^3/uL (150-450); Red Blood Count 4.25 10^6/uL (4.20-5.40); Red Cell Distribution Width 12.5 % (11.0-15.0); White Blood Count 22.7 10^3/uL (4.0-11.0)
[2023-12-23] MEDS: 0.9 % SODIUM CHLORIDE 1,000 ML 1000 ML IV (09:02)
--- NOTE | 2023-12-23 09:06 | ECG_ITS ---
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
[2023-12-23 09:35] LABS: Anion Gap 17.8; BUN Creatinine Ratio 12.3; Calcium 9.4 mg/dL (8.5-10.1); Carbon Dioxide 24.4 mmol/L (21.0-32.0); Chloride 100 mmol/L (98-107); Estimated GFR (African America >60 (>=60); Estimated GFR (Non-African Ame >60 (>=60); Glucose 117 mg/dL (74-106); Potassium 3.2 mmol/L (3.5-5.1); Sodium 139 mmol/L (136-145); TSH W/ REFLEX FT4 2.291 uIU/mL (0.358-3.740); Troponin I High Sensitivity <4.0 pg/mL (4.0-51.3)
--- NOTE | 2023-12-23 09:44 | ED.CHESTPAI1 ---
HPI - Chest Pain General Chief Complaint: Chest Pain Stated Complaint: CHEST PAIN Time Seen by Provider: 12/23/23 08:34 Source: patient and family Mode of arrival: walk-in Limitations: no limitations History of Present Illness HPI narrative: This patient arrived from home complaining of palpitations increased heart rate and feeling woozy and lightheaded. She has a history of SVT but she is usually able to convert with vagal maneuvers at home. She woke up from her sleep with the symptoms. She took a hot bath but the symptoms persisted so she came to the hospital. She is not on any antiarrhythmics. She has seen cardiology in the past and has had echocardiogram and all of her diagnostic studies for her heart are normal. She gets this once every several months but again it has very brief and short limited. She was here several weeks ago and took a steroid Dosepak. Otherwise she is not on any [id number] medications other than Hobbs vitamins. 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 She is highly anxious. She is not really having any heavy squeezing in her chest. She has no history of coronary disease. No diabetes or hypertension. Related Data Home Medications ?Medication ?Instructions ?Recorded ?Confirmed naproxen 500 mg tablet 500 mg PO Q12H PRN pain 11/13/23 11/13/23 Previous Rx's ?Medication ?Instructions ?Recorded methocarbamol 500 mg tablet 750 mg (1.5 x 500 mg) PO QID PRN 11/14/23 Muscle Spasm #20 tabs oxycodone-acetaminophen 5 mg-325 1 tab PO QID PRN Pain 5 days #20 11/14/23 mg tablet tabs prednisone 10 mg tablets in a dose 10 mg PO DAILY #39 ea 11/14/23 pack Allergies Allergy/AdvReac Type Severity Reaction Status Date / Time No Known Drug Allergies Allergy Verified 05/05/23 15:16 [facility] Medical History (Updated 12/23/23 @ 09:52 by Matt Amaro MD) Lumbar degenerative disc disease ?M51.36 - Other intervertebral disc degeneration, lumbar region (ICD-10) Acute lumbar radiculopathy ?M54.16 - Radiculopathy, lumbar region (ICD-10) Fracture of hand ?S62.90XA - Unspecified fracture of unspecified wrist and hand, initial encounter for closed fracture (ICD-10) Low back pain ?M54.50 - Low back pain, unspecified (ICD-10) Cervical stenosis of spine ?M48.02 - Spinal stenosis, cervical region (ICD-10) Degenerative disc disease Herniated disc Surgical History (Updated 11/13/23 @ 23:36 by Jerri Davidson, RN) History of back surgery ?Z98.890 - Other specified postprocedural states (ICD-10) Family History (Updated 11/13/23 @ 22:54 by Jerri Davidson RN) Father Hyperlipemia Brother Hyperlipemia Social History (Updated 11/13/23 @ 23:36 by Jerri Davidson, RN) Within the past year, how often did you have a drink containing alcohol: 2-4 times a month Within the past year, how many standard drinks containing alcohol did you have on a typical day: 1 or 2 Within the past year, how often did you have six or more drinks on one occasion: never Total score: 0 Score interpretation: A score less than 3 is consistent with normal alcohol consumption. Smoking status: Former smoker Non-prescribed substance use: denies use Highest level of school completed/degree received: Bachelor's degree Are you now , , , , never or living with a partner: Little interest or pleasure in doing things: not at all Feeling down, depressed, or hopeless: not at all Feel stressed/tense/nervous/anxious/difficulty sleeping: not at all Do you think of yourself as: lesbian/melo/homosexual Gender Identity: female Exam Narrative Exam Narrative: She was seen by myself immediately upon arrival and placed on the monitor that disclosed a narrow QRS complex tachycardia. Pulses were good. She was not cyanotic or hypoxic. She was anxious and somewhat diaphoretic. An IV was established blood drawl was taken and she was placed on the awake overnight monitor. Her lungs were clear with no wheeze rales or rhonchi her heart sounds were tachycardic but I do not hear murmur. Perfusion of the extremities was normal. Her cognition and her mentation was normal as well. Constitutional Vital Signs, click to edit/add: Last Vital Signs Temp 98.6 F 12/23/23 08:34 Pulse 175 H 12/23/23 08:34 Resp 22 H 12/23/23 08:34 BP 137/112 H 12/23/23 08:34 Pulse Ox 100 12/23/23 08:34 O2 Del Method Room Air 12/23/23 08:34 Course Vital Signs Vital signs: Vital Signs Temperature 98.6 F 12/23/23 08:34 Pulse Rate 175 H 12/23/23 08:34 Respiratory Rate 22 H 12/23/23 08:34 Blood Pressure 137/112 H 12/23/23 08:34 Pulse Oximetry 100 12/23/23 08:34 Oxygen Delivery Method Room Air 12/23/23 08:34 Temperature 98.6 F 12/23/23 08:34 Pulse Rate 175 H 12/23/23 08:34 Respiratory Rate 22 H 12/23/23 08:34 Blood Pressure 137/112 H 12/23/23 08:34 Pulse Oximetry 100 12/23/23 08:34 Oxygen Delivery Method Room Air 12/23/23 08:34 MDM - Chest Pain MDM Narrative Medical decision making narrative: After placing the patient on a monitor and establishing that the arrhythmia was consistent with SVT and IV was quickly established in her right antecubital fossa. Although she had done Valsalva maneuvers at home I requested that she try 1 more effort before we administered adenacard After Valsalva 1 more time here in the ER she converted to a sinus rhythm without chemical cardioversion. We observed her for well over an hour after that. Her electrolytes show slightly low potassium. That may be residual effect from her previous use of prednisone so we will give her prescription to correct her potassium depletion. I would like her to follow-up with her primary care doctor to repeat her electrolyte study in approximately several weeks. She is discharged in satisfactory condition Lab Data Labs: Lab Results 12/23/23 Range/Units 08:46 WBC 22.7 H (4.0-11.0) 10^3/uL RBC 4.25 (4.20-5.40) 10^6/uL Hgb 13.8 (12.0-16.0) g/dL Hct 40.4 (36.0-48.0) % MCV 95.1 (81.0-99.0) fL MCH 32.5 (26.7-34.0) pg MCHC 34.2 (29.9-35.2) g/dL RDW 12.5 (11.0-15.0) % Plt Count 375 (150-450) 10^3/uL MPV 9.5 (9.5-13.5) fL Neut % (Auto) 84.3 H (43.0-75.0) % Lymph % (Auto) 10.8 L (20.5-60.0) % Douglas % (Auto) 3.9 (1.7-12.0) % Eos % (Auto) 0.1 L (0.9-7.0) % Baso % (Auto) 0.4 (0.2-2.0) % Neut # (Auto) 19.1 H (1.4-6.5) 10^3/uL Lymph # (Auto) 2.5 (1.2-3.8) 10^3/uL Douglas # (Auto) 0.9 H (0.3-0.8) 10^3/uL Eos # (Auto) 0.0 (0.0-0.7) 10^3/uL Baso # (Auto) 0.1 (0.0-0.1) 10^3/uL Abs Immat Gran (auto) 0.12 H (0.00-0.03) 10^3/uL Imm/Tot Granulo (auto) 0.5 (0.0-0.5) % Sodium 139 (136-145) mmol/L Potassium 3.2 L (3.5-5.1) mmol/L Chloride 100 (98-107) mmol/L Carbon Dioxide 24.4 (21.0-32.0) mmol/L Anion Gap 17.8 BUN 9.0 (7.0-18.0) mg/dL Creatinine 0.73 (0.55-1.02) mg/dL Est GFR ( Amer) >60 (>=60) Est GFR (Non-Af Amer) >60 (>=60) BUN/Creatinine Ratio 12.3 Glucose 117 H (74-106) mg/dL Calcium 9.4 (8.5-10.1) mg/dL Troponin I High Sens <4.0 L (4.0-51.3) pg/mL TSH & Free T4 Interp 2.291 (0.358-3.740) uIU/mL Discharge Plan Discharge Stand Alone Forms: Portal Instructions Chief Complaint: Chest Pain Clinical Impression: Paroxysmal SVT (supraventricular tachycardia) Patient Disposition: Home, Self-Care Time of Disposition Decision: 09:52 Prescriptions / Home Meds: No Action naproxen 500 mg tablet 500 mg PO Q12H PRN (Reason: pain) methocarbamol 500 mg Tablet 750 mg PO QID PRN (Reason: Muscle Spasm) Qty: 20 0RF oxycodone-acetaminophen 5-325 mg Tablet 1 tab PO QID PRN (Reason: Pain) 5 Days Qty: 20 0RF prednisone 10 mg tablets,dose pack 10 mg PO DAILY Qty: 39 0RF Rx Instructions: 6 PO daily x 3 days, then 4 PO daily x 3 days, then 2 PO daily x 3 days, then 1 PO daily x 3 days Print Language: Nauruan Additional Instructions: Take potassium tablets for several days. Follow-up with family doctor repeat your electrolytes in several weeks Referrals: TREY NGUYEN [Primary Care Provider] - 1 week
[2023-12-23] MEDS: POTASSIUM CHLORIDE 10 MEQ ER TABLET 20 MEQ PO (10:03)
[2023-12-23 10:08] VITALS: PULSE 89; O2SAT 98
== END 2023-12-23 10:11 | disposition home or self-care (01) ==
PROVIDERS: Emergency Provider Emergency Medicine Emergency Medical Services; PCP Nurse Practitioner Family
DX: I47.10 Supraventricular tachycardia, unspecified (principal); Z87.891 Personal history of nicotine dependence; Z98.890 Other specified postprocedural states
CPT/HCPCS: 36415; 80048; 84443; 84484; 85025; 93005; 96360; 99284